=== PATIENT | female | born 1940 | race Caucasian/White ===

== ENCOUNTER → 2017-05-22 | Outpatient (CLI) | payer MEDICARE, BC ==
[2016-08-06 11:00] VITALS: BP 130/55
[~2017-05-22] MED LIST: ALPR0.5T6 PO; AMLO10TA4 PO; ASPI-482 PO; CELE200C PO; CINN500C2 PO; CRESTOR40 MG PO; EZET10TA18 PO; FEXO60TA25 PO; FLUT9.9S NS; GABA-586 PO; GINK60CA3 PO; GLIM1TAB2 PO; HYDR25TA9 PO; IPRA4AER IH; IRON18TA PO; ISOS60TA2 PO; LEVO100T5 PO; LISI-334 PO; METO100T11 PO; MULT-245 PO; NITR0.4T SL; OMEG300C PO; PANT40TA5 PO; PIOG30TA41 PO; PROAIR HFA8.5 GM INH; SERT100T8 PO; TRAZ50TA15 PO
--- NOTE | 2017-05-22 11:11 | CARD ---
APPROVED REPORT EXAM: Two-dimensional and M-mode echocardiogram with Doppler and color Doppler. Other Information Quality : Fair INDICATION Pulmonary Hypertention 2D DIMENSIONS RVDd3.4 (2.9-3.5cm)Left Atrium(2D)4.2 (1.6-4.0cm) IVSd1.1 (0.7-1.1cm)Aortic Root(2D)2.2 (2.0-3.7cm) LVDd4.4 (3.9-5.9cm)LVOT Diameter1.9 (1.8-2.4cm) PWd1.2 (0.7-1.1cm)LVDs2.7 (2.5-4.0cm) FS (%) 30.0 %SV58.9 ml LVEF(%)60.0 (>50%) Aortic Valve AoV Peak Maxwell.219.2cm/sAoV VTI48.1cm AO Peak GR.19.2mmHgLVOT Peak Maxwell.124.5cm/s AO Mean GR.12mmHgAVA (VMAX)1.58cm2 Mitral Valve MV E Lbrryrno01.1cm/sMV DECEL [id number] MV A Opuqucix327.4cm/sE/A Ratio0.7 Tricuspid Valve TR P. Pzajikpl447bt/sRAP [id number] TR Peak Gr.84stIvNMKI74qxDr Pulmonary Vein S1 Rqjgnqwl77.9cm/sD2 Bmvjkmxu64.6cm/s PVa [id number] LEFT VENTRICLE The left ventricle is normal size. There is mild concentric left ventricular hypertrophy. The left ve ntricular systolic function is normal and the ejection fraction is within normal range. The Ejection Fraction is 60-65%. There is normal LV segmental wall motion. Transmitral Doppler flow pattern is Gra de I-abnormal relaxation pattern. RIGHT VENTRICLE The right ventricle is normal size. The right ventricular systolic function is normal. There is a pac emaker lead in the right ventricle. ATRIA The left atrium is mildly dilated. The right atrium is mildly dilated. A pacemaker is seen in the rig ht atrium consistent with history. The interatrial septum is intact with no evidence for an atrial se ptal defect or patent foramen ovale as noted on 2-D or Doppler imaging. AORTIC VALVE The aortic valve is calcified but opens well. Doppler and Color Flow revealed no significant aortic r egurgitation. There is no significant aortic valvular stenosis. MITRAL VALVE The mitral valve is calcified but opens well. There is no evidence of mitral valve prolapse. There is no mitral valve stenosis. Doppler and Color-flow revealed trace to mild mitral regurgitation. TRICUSPID VALVE The tricuspid valve is normal in structure and function. Doppler and Color Flow revealed physiologica l tricuspid regurgitation. There is mild pulmonary hypertension. The PA pressure was estimated at 36 mmHg. There is no tricuspid valve stenosis. PULMONIC VALVE Doppler and Color Flow revealed trace pulmonic valvular regurgitation. There is no pulmonic valvular stenosis. GREAT VESSELS The aortic root is normal in size. The ascending aorta is normal in size. The IVC is normal in size a nd collapses >50% with inspiration. PERICARDIAL EFFUSION There is no evidence of significant pericardial effusion. Critical Notification Critical Value: No <Conclusion> The left ventricular systolic function is normal and the ejection fraction is within normal range. Th e Ejection Fraction is 60-65%. There is normal LV segmental wall motion. There is a pacemaker lead in the right ventricle.
== END | disposition home or self-care (01) ==
LOC: ECHO 09:47
PROVIDERS: ATTEND Internal Medicine Cardiovascular Disease
DX: I27.0 Primary pulmonary hypertension (principal); Z95.0 Presence of cardiac pacemaker
CPT/HCPCS: 93306

== ENCOUNTER 2017-07-13 06:28 | Outpatient (CLI) | payer MEDICARE, BC ==
[2017-07-13] VITALS (9 sets, daily range): BP systolic 149–197; BP diastolic 56–86
[~2017-07-13] VITALS: Ht 154.9 cm; Wt 107.0 kg
[~2017-07-13 06:28] MED LIST changes: +METO-247 PO; -METO100T11 PO
[2017-07-13 07:07] LABS: CALCIUM 9.3 mg/dL (8.5-10.1); CREATININE 1.3 mg/dL (0.6-1.0); GFR 39.9; POTASSIUM 3.5 mmol/L (3.5-5.1)
[2017-07-13 07:13] LABS: INR 1.1 (0.8-1.1); PROTHROMBIN TIME PATIENT 13.2 SEC (11.7-14.0)
[2017-07-13] MEDS ORDERED: LIDOCAINE 2% 20 ML VIAL. ONE (07:13)
[2017-07-13] MEDS ORDERED: HEPARIN for ARTERIAL LINE 1,500 ML ONE (07:13)
[2017-07-13 07:18] LABS: HEMATOCRIT 37.3 % (36.0-47.0); HEMOGLOBIN 12.2 g/dL (12.0-15.5); RED BLOOD COUNT 4.14 x10^6/uL (3.50-5.40); RED CELL DISTRIBUTION WIDTH 13.9 % (11.5-14.5)
[2017-07-13] MEDS ORDERED: GLIM2TAB2 PO (07:32)
[2017-07-13] MEDS ORDERED: LEVO112T4 PO (07:32)
[2017-07-13] MEDS ORDERED: MELO7.5T29 PO (07:32)
[2017-07-13] MEDS ORDERED: VERA240C2 PO (07:32)
[2017-07-13] MEDS ORDERED: LORA10TA3 PO (07:32)
[2017-07-13] MEDS ORDERED: CRESTOR20 MG PO (07:32)
[2017-07-13] MEDS ORDERED: IODIXANOL 320 MG/ML 100 ML VIAL. ONE (07:35)
[2017-07-13] MEDS ORDERED: diphenhydrAMINE 50 MG/ML VIAL ONE (07:51)
[2017-07-13] MEDS ORDERED: methylPREDNISolone SOD SUCC PF 125 MG/2 ML VIAL. ONE (07:51)
[2017-07-13] MEDS ORDERED: FAMOTIDINE 20 MG/2 ML VIAL ONE (07:51)
[2017-07-13] MEDS ORDERED: diphenhydrAMINE 50 MG/ML VIAL IVP ONE (08:00)
[2017-07-13] MEDS ORDERED: FAMOTIDINE 20 MG/2 ML VIAL IVP ONE (08:00)
[2017-07-13] MEDS ORDERED: methylPREDNISolone SOD SUCC PF 125 MG/2 ML VIAL. IV ONE (08:00)
[2017-07-13] MEDS ORDERED: MIDAZOLAM HCL/PF 2 MG/2 ML VIAL. ONE (09:00)
[2017-07-13] MEDS ORDERED: fentaNYL PF VIAL 100 MCG/2 ML VIAL ONE ×2 (09:01→09:41)
--- NOTE | 2017-07-13 09:08 | PDOC ---
MODERATE SEDATION ASSESSMENT RISKS/ALTERNATIVES Risks/Alternatives Risks and alternatives of this type of sedation and procedure discussed with: RISK/ALTERNATIVES: Patient H & P ON CHART H & P H & P on chart and reviewed for co-morbid conditions and appropriate labs. H&P ON CHART: Yes STATUS PREG STATUS ASSESSED: N/A MEDS/ALLERGIES REVIEWED Meds/Allergies Reviewed Medications and Allergies including time and route of recently administered narcotics and sedatives. MEDS/ALLERGIES REVIEWED: Yes ASA RATING ASA RATING: III AIRWAY ASSESSMENT Airway Assessment Airway patency, oral function limitations, presence of caps, crowns, dentures, partials, and ability to extend neck assessed. AIRWAY ASSESSMENT: Yes MALLAMPATI SCORE MALLAMPATI SCORE: II PRE-SEDATION ASSESSMENT PRE-SEDATION ASSESSMENT: Yes CATHLEEN ZENDEJAS MD Jul 13, 2017 09:08
[2017-07-13] MEDS ORDERED: hydrALAZINE 20 MG/ML VIAL. ONE (09:11)
[2017-07-13] MEDS ORDERED: CONTRAST GIVEN MC PRN (09:15)
[2017-07-13] MEDS ORDERED: MIDAZOLAM HCL/PF 2 MG/2 ML VIAL. IV ONE (09:15)
[2017-07-13] MEDS ORDERED: fentaNYL PF VIAL 100 MCG/2 ML VIAL IV ONE (09:15)
[2017-07-13] MEDS ORDERED: LIDOCAINE 2% 20 ML VIAL. IJ ONE (09:15)
[2017-07-13] MEDS ORDERED: IODIXANOL 320 MG/ML 100 ML VIAL. IART ONE (09:15)
[2017-07-13] MEDS ORDERED: hydrALAZINE 20 MG/ML VIAL. IVP ONE (09:30)
--- NOTE | 2017-07-13 13:43 | CARD ---
APPROVED REPORT Procedure(s) performed: Right Heart Cath, Coronaries, LV Moderate Sedation: 51 Minutes HISTORY The patient is a 76 year-old female with a history of : previous CHF, coronary artery disease, hypert ension, dyslipidemia. INDICATION The indication(s) include : dyspnea. PROCEDURE NARRATIVE The patient was brought electively to the cardiac catheterization lab. A timeout was performed confi rming the patient's name, date of , procedure, and site of procedure. All necessary personnel w ere wearing the appropriate protective equipment and radiation monitor devices. After explaining the risks and benefits of the procedure and alternatives, informed consent was obtained. (See nursing no nasreen for medications administered). The right groin was sterilely prepped and draped in the usual fas hion. The right groin was infiltrated with 20 mL of 2% lidocaine for subcutaneous anesthesia. A 5 F sheath was inserted into the right femoral artery without difficulty via the modified seldinger techn ique with an 18G needle and a J-tipped guidewire. Next, an 6Fr sheath was inserted in the right commo n femoral vein in similar fashion without difficulty. A PA catheter was then advanced through the right heart chambers, pressures and saturations were obta ined. Subsequently, right and left coronary angiography was performed using standard JR4 and JL4 diag nostic catheters. Left ventricular end diastolic pressure was obtained with a pigtail catheter and p ullback was performed after left ventriculography. HEMODYNAMICS: LVEDP 21 mm Hg AO: 156/82 *No gradient on LV to aortic pullback. PCWP: 20 mm Hg PA: 54/26/38 RV: 57/10/16 RA: 11 mm Hg Artur: 4.5 L/min PA saturation: 73% FA saturation: 95% LEFT VENTRICULOGRAM: Deferred due to renal insufficiency. CORONARY ANGIOGRAPHY: LM is a moderate to large caliber vessel with normal angiographic appearance. LAD is a moderate caliber vessel with patent mid stents. D1 is a small caliber vessel with an ostial 70% stenosis. There is an epicardial collateral to the di stal segment of this vessel. LCx is a small to moderate caliber non-dominant vessel with mild luminal irregularities. RCA is a large caliber dominant vessel with patent proximal and mid stents and mild luminal irregular ities. RPDA and RPL are small to moderate caliber vessels with normal angiographic appearance. Conclusion 1. No significant coronary artery disease, patent LAD and RCA stents. 2. No significant pulmonary HTN. 3. No clear cardiac source of exertional dyspnea noted. Recommendations Aggressive Medical Therapy
== END 2017-07-13 14:00 | disposition home or self-care (01) ==
LOC: CCL 06:28
PROVIDERS: ATTEND Internal Medicine Cardiovascular Disease
DX: I25.10 Atherosclerotic heart disease of native coronary artery without angina pectoris (principal); I11.0 Hypertensive heart disease with heart failure; I50.9 Heart failure, unspecified; E78.00 Pure hypercholesterolemia, unspecified; J44.9 Chronic obstructive pulmonary disease, unspecified; E66.9 Obesity, unspecified; Z68.41 Body mass index [BMI] 40.0-44.9, adult; K21.9 Gastro-esophageal reflux disease without esophagitis; E03.9 Hypothyroidism, unspecified; F32.9 Major depressive disorder, single episode, unspecified; M19.91 Primary osteoarthritis, unspecified site; Z90.710 Acquired absence of both cervix and uterus; Z90.49 Acquired absence of other specified parts of digestive tract; Z98.41 Cataract extraction status, right eye; Z98.42 Cataract extraction status, left eye; Z88.8 Allergy status to other drugs, medicaments and biological substances; Z88.6 Allergy status to analgesic agent; Z88.1 Allergy status to other antibiotic agents; Z91.041 Radiographic dye allergy status
CPT/HCPCS: 36415; 80048; 85027; 85610; 93453; 99152; 99153; C1769; C1773; C1892; J0360; J1200; J1644; J2250; J2930; J3010; S0028; J2001

== ENCOUNTER 2017-09-02 20:56 | Emergency (ER) | payer MEDICARE, BC ==
[~2017-09-02] VITALS: Ht 157.5 cm; Wt 101.6 kg
[~2017-09-02 20:56] MED LIST changes: +CRESTOR20 MG PO; +GLIM2TAB2 PO; +LEVO112T4 PO; +LORA10TA3 PO; +MELO7.5T29 PO; +VERA240C2 PO
[2017-09-02 20:58] VITALS: BP 177/76
[2017-09-02] MEDS ORDERED: ONDANSETRON ODT 4 MG TAB.RAPDIS. PO ONE (21:30)
[2017-09-02] MEDS ORDERED: fentaNYL PF VIAL 100 MCG/2 ML VIAL IM ONE (21:30)
--- NOTE | 2017-09-02 22:01 | PHYS DOC ---
Past Medical History Past Medical History: Anemia, CAD, COPD, Depression, Diabetes-Type II, High Cholesterol, Hypertension, Hypothyroid, Renal Disease Past Surgical History: Angioplasty, Appendectomy, Cholecystectomy, Hysterectomy , Pacemaker, Tonsillectomy Additional Past Surgical Histo: 6 cardiac stents, Alcohol Use: None Drug Use: None Adult General Chief Complaint Chief Complaint: HIP PAIN [facility] HPI Patient is a 76 year old female with history of chronic back pain who presents with persistent right lower paralumbar paravertebral back pain radiating to right leg for the past several days. Patient states she fell 4 days prior to arrival has had increased pain. Patient has been able to her in the process of moving is been lifting boxes, bending and twisting repeatedly which is more than her normal activity. Has had increased pain but did not receive medical evaluation until today. Patient was Rx'd Hydrocodone and is awaiting arrangements for outpatient imaging studies. Patient states she took hydrocodone 3 hours prior to ED arrival with limited improvement. Denies motor weakness or loss of sensation. No bladder incontinence. No other acute symptoms or complaints. Review of Systems Review of Systems ROS as per HPI. All other ROS are negative.] All other systems were reviewed and found to be within normal limits, except as documented in this note. Current Medications Current Medications Current Medications Medications (Trade) Dose Ordered Sig/Eloisa Start Time Stop Time Status Last Admin Dose Admin Fentanyl Citrate (Fentanyl 2ml Vial) 150 mcg 1X ONCE 09/02/17 21:30 09/02/17 21:31 DC 09/02/17 21:25 150 MCG Ketorolac Tromethamine (Toradol Im) 60 mg 1X ONCE 09/03/17 00:30 09/03/17 00:31 DC 09/03/17 00:23 60 MG Ondansetron HCl (Zofran Odt) 4 mg 1X ONCE 09/02/17 21:30 09/02/17 21:31 DC 09/02/17 21:24 4 MG Allergies Allergies Allergies Coded Allergies Type Severity Reaction Last Updated Verified Iodinated Contrast- Oral and IV Dye Allergy Intermediate 08/04/16 Yes Tetracyclines Allergy Intermediate 08/04/16 Yes morphine Allergy Intermediate 08/04/16 Yes nitrofurantoin Allergy Intermediate 08/04/16 Yes Physical Exam Physical Exam Constitutional: Well developed, well nourished, discomfort secondary to pain.[] HENT: Normocephalic, atraumatic, bilateral external ears normal, oropharynx moist, no oral exudates, nose normal. [] Eyes: PERRLA, EOMI, conjunctiva normal. [] Neck: Normal range of motion. [] Cardiovascular:Heart rate regular rhythm, no murmur [] Lungs & Thorax: Bilateral breath sounds clear to auscultation [] Abdomen: Bowel sounds normal, soft, no tenderness. [] Skin: Warm, dry, no erythema, no rash. [] Back: Diffuse low back pain, no midline bony tenderness, swelling or step off appreciated. [] Extremities: R hip, no deformity swelling, hip rotation, swelling or shortening of the extremity.. [] Neurologic: Alert and oriented X 3, R lower extremity , normal motor function, normal sensory function, no focal deficits noted. [] Psychologic: Affect, anxious. [] Current Patient Data Vital Signs Vital Signs Date Time Temp Pulse Resp B/P (MAP) Pulse Ox O2 Delivery O2 Flow Rate FiO2 09/02/17 22:15 Room Air 09/02/17 20:58 98.3 70 20 177/76 (109) 98 98.3 EKG EKG [] Radiology/Procedures Radiology/Procedures [X-ray right hip/lumbar series: No obvious displaced fracture. CT lumbar spine/pelvis: No acute findings per radiology report] Course & Med Decision Making Course & Med Decision Making Pertinent Labs and Imaging studies reviewed. (See chart for details) [No for occult neurologic deficits. Pain addressed. Showing stenosis likely contributing to pain. PCP follow up. ] Dragon Disclaimer Dragon Disclaimer This electronic medical record was generated, in whole or in part, using a voice recognition dictation system. Departure Departure Impression: Primary Impression: Back pain Additional Impression: Lumbar radicular pain Disposition: HOME, SELF-CARE Condition: Referrals: NAIF GONZALES MD (PCP) Problem Qualifiers ANUPAMA COLE DO Sep 02, 2017 22:01
--- NOTE | 2017-09-02 22:29 | RAD ---
CT lumbar spine without contrast History: Back pain Axial helical images of the lumbar spine were obtained without contrast. Axial, coronal and sagittal reconstruction was performed. Findings: There is grade 1 anterolisthesis of L4 on L5 and L5 on S1. There is no loss of vertebral body stature. Evaluation of the central canal is limited without contrast. Diffuse circumferential disc bulge and hypertrophy of the facets and ligamentum flavum results in owqdsxcp-jb-[id number] central stenosis at L4-5 with crowding of the lateral recesses lateral recesses bilaterally right worse than left. There is moderate narrowing of the neuroforamen bilaterally at L4-5 and L5-S1 with loss of fat around the exiting nerve roots bilaterally at L4-L5. There is a 2.4 cm intermediate density lesion arising from the mid right kidney posterior laterally. Impression: 1. Marked degenerative changes of the lumbar spine with significant central and neuroforaminal stenosis at L4-L5. 2. There appears to be compression of the intraforaminal course of the exiting nerve roots bilaterally at this level however, there is also likely compression of the L5 nerve roots before the end of the neuroforamen. 3. Indeterminate lesion in the right kidney. Recommend follow-up ultrasound of the kidneys as an outpatient. PQRS Compliance Statement: One or more of the following individualized dose reduction techniques were utilized for this examination: 1. Automated exposure control 2. Adjustment of the mA and/or kV according to patient size 3. Use of iterative reconstruction technique Electronically signed by: Jean Valera III, MD (09/02/2017 10:26 PM) [facility]
--- NOTE | 2017-09-02 22:44 | RAD ---
CT of pelvis without contrast: HISTORY: Right hip pain Axial helical images of the pelvis were obtained without contrast. The uterus is not well seen and could be small or surgically absent. The ovaries are not well seen and are likely small. There is no lymphadenopathy or free fluid. The bladder appears normal. There is no pericolonic inflammation. The visualized osseous structures appear intact. Impression: No acute findings. PQRS Compliance Statement: One or more of the following individualized dose reduction techniques were utilized for this examination: 1. Automated exposure control 2. Adjustment of the mA and/or kV according to patient size 3. Use of iterative reconstruction technique Electronically signed by: Jean Valera III, MD (09/02/2017 10:41 PM) [facility]
[2017-09-03] MEDS ORDERED: KETOROLAC 60 MG/2 ML INJ. IM ONE (00:30)
--- NOTE | 2017-09-03 07:54 | RAD ---
Pelvis with right hip, 3 views, 09/02/2017: History: Trauma, injury No fracture or dislocation is identified. The hip joint spaces are well preserved with only mild marginal spurring. There are degenerative changes at the symphysis pubis and in the lower lumbar spine. Surgical clips are present the right groin. Aortoiliac calcific plaquing is noted. IMPRESSION: No acute bony abnormality is detected.
--- NOTE | 2017-09-03 07:57 | RAD ---
Lumbar spine, 3 views, 09/02/2017: History: Back pain, injury There is moderate disc space narrowing and marginal spurring at L5-S1. The other intervertebral disc spaces are well-maintained. There are scattered mild marginal spurs. There are moderate degenerative changes involving the facet joints in the lower lumbar spine. There is a minimal anterolisthesis at L5-S1. No acute fracture is identified. Aortic calcific plaquing is present. IMPRESSION: 1. Moderate degenerative change in the lower lumbar spine. 2. No acute bony abnormality is detected.
== END 2017-09-03 00:26 | disposition home or self-care (01) ==
LOC: ER 20:56
DX: M54.16 Radiculopathy, lumbar region (principal); I25.10 Atherosclerotic heart disease of native coronary artery without angina pectoris; J44.9 Chronic obstructive pulmonary disease, unspecified; F32.9 Major depressive disorder, single episode, unspecified; I12.9 Hypertensive chronic kidney disease with stage 1 through stage 4 chronic kidney disease, or unspecified chronic kidney disease; E11.22 Type 2 diabetes mellitus with diabetic chronic kidney disease; N18.9 Chronic kidney disease, unspecified; E78.00 Pure hypercholesterolemia, unspecified; E03.9 Hypothyroidism, unspecified; G89.29 Other chronic pain; Z95.5 Presence of coronary angioplasty implant and graft; Z95.0 Presence of cardiac pacemaker; Z90.49 Acquired absence of other specified parts of digestive tract; Z90.710 Acquired absence of both cervix and uterus; Z91.041 Radiographic dye allergy status; Z88.1 Allergy status to other antibiotic agents; Z88.5 Allergy status to narcotic agent; Z88.8 Allergy status to other drugs, medicaments and biological substances
CPT/HCPCS: 72100; 72131; 72192; 73502; 96372; 99284; J1885; J3010; Q0162

== ENCOUNTER 2017-09-07 19:09 | Emergency (ER) | payer MEDICARE, BC ==
[~2017-09-07] VITALS: Ht 157.5 cm; Wt 99.8 kg
[2017-09-07 19:50] VITALS: BP 186/87
[2017-09-07] MEDS ORDERED: fentaNYL PF VIAL 100 MCG/2 ML VIAL IM ONE (20:30)
[2017-09-07] MEDS ORDERED: diazePAM 5 MG TABLET PO ONE (20:30)
[2017-09-07] MEDS ORDERED: KETOROLAC 60 MG/2 ML INJ. IM ONE (20:30)
--- NOTE | 2017-09-07 20:32 | PHYS DOC ---
Past Medical History Past Medical History: Anemia, CAD, COPD, Depression, Diabetes-Type II, High Cholesterol, Hypertension, Hypothyroid, Renal Disease Past Surgical History: Angioplasty, Appendectomy, Cholecystectomy, Hysterectomy , Pacemaker, Tonsillectomy Additional Past Surgical Histo: 6 cardiac stents, Alcohol Use: None Drug Use: None Adult General Chief Complaint Chief Complaint: HIP PAIN [facility] HPI Patient is a 76 year old female with history of COPD, diabetes type 2, hypertension, anemia, who presents today complaining of moderate right low back pain radiating into the right lower extremity that began on after she fell. Patient was seen in the ED on September 02, 2017, she had lumbar spine CTs which were negative for any acute findings and right hip x-rays which were negative for any acute findings. She states she was sent home with hydrocodone and Flexeril. Patient states her pain is still ongoing. Patient denies any injury. Denies any loss of bowel bladder function. Denies any numbness or tingling to bilateral lower extremities. She states she has an appointment with her PCP tomorrow morning. Review of Systems Review of Systems Constitutional: Denies fever or chills [] Eyes: Denies change in visual acuity, redness, or eye pain [] HENT: Denies nasal congestion or sore throat [] Respiratory: Denies cough or shortness of breath [] Cardiovascular: No additional information not addressed in HPI [] GI: Denies abdominal pain, nausea, vomiting, bloody stools or diarrhea [] : Denies dysuria or hematuria [] Musculoskeletal: Right low back pain radiating into the right lower extremity Integument: Denies rash or skin lesions [] Neurologic: Denies headache, focal weakness or sensory changes [] All other systems were reviewed and found to be within normal limits, except as documented in this note. Current Medications Current Medications Current Medications Medications (Trade) Dose Ordered Sig/Eloisa Start Time Stop Time Status Last Admin Dose Admin Diazepam (Valium) 5 mg 1X ONCE 09/07/17 20:30 09/07/17 20:31 DC Fentanyl Citrate (Fentanyl 2ml Vial) 50 mcg 1X ONCE 09/07/17 20:30 09/07/17 20:31 DC Ketorolac Tromethamine (Toradol Im) 60 mg 1X ONCE 09/07/17 20:30 09/07/17 20:31 DC Allergies Allergies Allergies Coded Allergies Type Severity Reaction Last Updated Verified Iodinated Contrast- Oral and IV Dye Allergy Intermediate 08/04/16 Yes Tetracyclines Allergy Intermediate 08/04/16 Yes morphine Allergy Intermediate 08/04/16 Yes nitrofurantoin Allergy Intermediate 08/04/16 Yes Physical Exam Physical Exam Constitutional: Well developed, well nourished, no acute distress, non-toxic appearance. [] HENT: Normocephalic, atraumatic, bilateral external ears normal, oropharynx moist, no oral exudates, nose normal. [] Eyes: PERRLA, EOMI, conjunctiva normal, no discharge. [] Neck: Normal range of motion, no tenderness, supple, no stridor. [] Cardiovascular:Heart rate regular rhythm, no murmur [] Lungs & Thorax: Bilateral breath sounds clear to auscultation [] Abdomen: Bowel sounds normal, soft, no tenderness, no masses, no pulsatile masses. [] Skin: Warm, dry, no erythema, no rash. [] Back: Diffuse tenderness to the right lumbar spine worse on the right SI joint, no midline lumbar spine tenderness, no CVA tenderness. [] Extremities: No tenderness, no cyanosis, no clubbing, ROM intact, no edema. [] Neurologic: Alert and oriented X 3, normal motor function, normal sensory function, no focal deficits noted. [] Psychologic: Affect normal, judgement normal, mood normal. [] Current Patient Data Vital Signs Vital Signs Date Time Temp Pulse Resp B/P (MAP) Pulse Ox O2 Delivery O2 Flow Rate FiO2 09/07/17 19:50 97.6 95 16 98 Room Air 97.6 EKG EKG [] Radiology/Procedures Radiology/Procedures [] Course & Med Decision Making Course & Med Decision Making Pertinent Labs and Imaging studies reviewed. (See chart for details) Patient is in the ED with complaints of right low-back pain radiating into the right lower extremity that began on after she fell. They did a CT of her lumbar spine as well as x-rays of the right hip which were negative for any acute findings. She is currently taking cyclobenzaprine and hydrocodone with no relief. I talked to patient about management of her pain considering she is 76 years old. Informed her she can be admitted for pain management. She states she has an appointment with her PCP tomorrow morning. She'll be given Toradol and Valium and fentanyl in the ED. She'll be discharged with Valium and to continue taking her fentanyl and follow-up with her own PCP tomorrow morning at 11 AM. Recommended pain clinic doctor follow up as well. Dragon Disclaimer Dragon Disclaimer This electronic medical record was generated, in whole or in part, using a voice recognition dictation system. Departure Departure Impression: Primary Impression: Back pain Additional Impression: Lumbar radicular pain Disposition: HOME, SELF-CARE Condition: STABLE Referrals: NAIF GONZALES MD (PCP) follow up tomorrow BERTA ZAMUDIO MD follow up in one week Patient Instructions: Back Pain, Adult, Sciatica, [id number] Additional Instructions: You were seen with pain radiating to the right lower extremity. You have an appointment with their doctor tomorrow. Ensure you follow-up. We also provided you a pain clinic doctor, contact the office tomorrow and set up a follow-up appointment. Return to the ED at any point symptoms worsen. Scripts Hydrocodone Bit/Acetaminophen (HYDROCODONE-APAP 7.5-325 ) 1 Each Tablet 1 TAB PO PRN Q6HRS Y for PAIN, #10 TAB 0 Refills Prov: CARLOS DURAND APRN 09/07/17 Diazepam (VALIUM) 5 Mg Tablet 5 MG PO TID, #15 TAB Prov: CARLOS DURAND APRN 09/07/17 Problem Qualifiers Primary Impression: Back pain Back pain location: low back pain Chronicity: acute Back pain laterality: right Sciatica presence: with sciatica Sciatica laterality: sciatica of right side Qualified Codes: M54.41 - Lumbago with sciatica, right side CARLOS DURAND APRN Sep 07, 2017 20:32
[2017-09-07] MEDS ORDERED: HYDR-2762 PO (20:36)
[2017-09-07] MEDS ORDERED: DIAZ5TAB PO (20:36)
== END 2017-09-07 20:49 | disposition home or self-care (01) ==
LOC: ER 19:09
DX: M54.41 Lumbago with sciatica, right side (principal); M54.16 Radiculopathy, lumbar region; I25.10 Atherosclerotic heart disease of native coronary artery without angina pectoris; J44.9 Chronic obstructive pulmonary disease, unspecified; I12.9 Hypertensive chronic kidney disease with stage 1 through stage 4 chronic kidney disease, or unspecified chronic kidney disease; E11.22 Type 2 diabetes mellitus with diabetic chronic kidney disease; N18.9 Chronic kidney disease, unspecified; F32.9 Major depressive disorder, single episode, unspecified; E78.00 Pure hypercholesterolemia, unspecified; E03.9 Hypothyroidism, unspecified; Z95.0 Presence of cardiac pacemaker; Z95.5 Presence of coronary angioplasty implant and graft; Z90.49 Acquired absence of other specified parts of digestive tract; Z90.710 Acquired absence of both cervix and uterus; Z91.041 Radiographic dye allergy status; Z88.1 Allergy status to other antibiotic agents; Z88.5 Allergy status to narcotic agent; Z88.8 Allergy status to other drugs, medicaments and biological substances
CPT/HCPCS: 96372; 99284; J1885; J3010

== ENCOUNTER → 2017-09-15 | Outpatient (CLI) | payer MEDICARE, BC ==
[2017-09-07 19:50] VITALS: BP 186/87
[~2017-09-15] MED LIST changes: +DIAZ5TAB PO; +HYDR-2762 PO
--- NOTE | 2017-09-15 12:59 | KCIC ---
RENAL ARTERY ARTERIAL DOPPLER ULTRASOUND Indication: Chronic kidney disease stage III. Kidney mass seen on CT lumbar spine. Comparison: CT lumbar spine without contrast, September 02, 2017. Technique: Multiple grayscale, color flow, and Doppler spectral waveform analysis images of the abdominal aorta and renal arteries were obtained. Findings: Left kidney technically difficult to visualize. Patient unable to lay flat or towards the right. Abdominal aorta peak systolic velocity: 94 cm/sec. Right main renal artery peak systolic velocity: 93 cm/sec. Right renal artery to aorta ratio: 1 Left main renal artery peak systolic velocity: 100 cm/sec. Left renal artery to aorta ratio: 1.1 The bilateral proximal renal arteries are unable to be visualized. Renal veins are patent. The right kidney measures 8.6 cm. The left kidney measures 10.2 cm. Kidneys are normal in echotexture. No hydronephrosis. There is a right upper pole round hypoechoic lesion measuring 2.4 x 2.1 x 2.5 cm. There may be increased through transmission. The margins are irregular. Do not see a color Doppler interrogation image of the lesion. Urinary bladder is not well seen, no obvious abnormality. IMPRESSION: 1. The lesion in the upper pole of the right kidney is indeterminate by ultrasound. There are internal echoes and irregular margins. A color Doppler image interrogating this lesion is not saved. Recommend further evaluation with multiphase CT abdomen with and without contrast. 2. No evidence of hemodynamically significant renal artery stenosis. Electronically signed by: Jean Marie Schwartz MD (09/15/2017 12:56 PM) [id number]
== END | disposition home or self-care (01) ==
LOC: KCIC US 07:47
PROVIDERS: ATTEND Family Medicine
DX: N18.3 Chronic kidney disease, stage 3 (moderate) (principal); N28.89 Other specified disorders of kidney and ureter
CPT/HCPCS: 76770

== ENCOUNTER → 2017-10-07 | Outpatient (CLI) | payer MEDICARE, BC ==
[2017-10-07] MEDS: IOHEXOL 300 MG/ML 100ML VIAL. IV (08:51)
[2017-10-07 08:52] LABS: ISTAT CREATININE 1.4 mg/dL (0.6-1.1)
== END | disposition home or self-care (01) ==
LOC: KCIC CT 08:12
DX: N28.1 Cyst of kidney, acquired (principal); N28.89 Other specified disorders of kidney and ureter; K44.9 Diaphragmatic hernia without obstruction or gangrene
CPT/HCPCS: 74170; 82565; Q9967

== ENCOUNTER 2018-02-27 19:40 | Emergency (ER) | payer MEDICARE, BC | END 2018-02-27 20:20 | disposition home or self-care (01) | LOC: ER 19:40 | DX: L03.116 Cellulitis of left lower limb (principal); E03.9 Hypothyroidism, unspecified; E78.00 Pure hypercholesterolemia, unspecified; I25.10 Atherosclerotic heart disease of native coronary artery without angina pectoris; J44.9 Chronic obstructive pulmonary disease, unspecified; Z95.0 Presence of cardiac pacemaker; Z95.5 Presence of coronary angioplasty implant and graft; I13.10 Hypertensive heart and chronic kidney disease without heart failure, with stage 1 through stage 4 chronic kidney disease, or unspecified chronic kidney disease; E11.22 Type 2 diabetes mellitus with diabetic chronic kidney disease; N18.9 Chronic kidney disease, unspecified; Z90.49 Acquired absence of other specified parts of digestive tract; Z90.710 Acquired absence of both cervix and uterus | CPT/HCPCS: 99283 ==

== ENCOUNTER → 2018-07-21 | Outpatient (CLI) | payer MEDICARE, BC ==
[2018-02-27 19:52] VITALS: BP 159/89
[~2018-07-21] MED LIST changes: +ACET500T68 PO; +CEPH-263 PO; +GABA600T2 PO; +PRED-220 PO; +TRAZ-85 PO; -TRAZ50TA15 PO
--- NOTE | 2018-07-21 09:49 | CARD ---
MR#: [id number] Date of Study: 07/21/2018 Ordering Physician: CATHLEEN JACK, Referring Physician: CATHLEEN JACK, Tech: Mallory Ortez APPROVED REPORT EXAM: Two-dimensional and M-mode echocardiogram with Doppler and color Doppler. Other Information Quality : FairHR: 60bpm INDICATION COPD Coronary Arteriosclerosis Surgery/Intervention Pacemaker: RISK FACTORS Hypertension Obesity Hyperlipidemia Diabetes 2D DIMENSIONS Left Atrium(2D)4.3 (1.6-4.0cm)IVSd1.0 (0.7-1.1cm) Aortic Root(2D)2.9 (2.0-3.7cm)LVDd5.5 (3.9-5.9cm) LVOT Diameter2.1 (1.8-2.4cm)PWd1.3 (0.7-1.1cm) LVDs3.0 (2.5-4.0cm)FS (%) 45.1 % SV112.9 mlLVEF(%)75.9 (>50%) Aortic Valve AoV Peak Maxwell.246.9cm/sAoV VTI61.3cm AO Peak GR.24.4mmHgLVOT Peak Maxwell.90.4cm/s LVOT VTI 19.09cmAO Mean GR.14mmHg IRISH (VMAX)0.20gy4FFI (VTI)1.09cm2 Mitral Valve MV E Kufexcwo306.5cm/sMV DECEL TODI481pq MV A Qcgyswjk728.4cm/sMV VHF84sb E/A Ratio1.1MVA (PHT)5.30cm2 TDI E/Lateral E'17.7E/Medial E'16.1 Pulmonary Valve PV Peak Dhwafjcx017.4cm/sPV Peak Grad.7mmHg Tricuspid Valve TR P. Cdkaytxv358oo/sRAP LGGBZNVJ3xwHu TR Peak Gr.23pyFzDUKI60zxMt Pulmonary Vein S1 Dzwfyvrc07.4cm/sD2 Nzxpodxf45.0cm/s LEFT VENTRICLE The Left Ventricle is mildly dilated. There is borderline concentric left ventricular hypertrophy. Th e left ventricular systolic function is normal and the ejection fraction is within normal range. The Ejection Fraction is 55-60%. Suboptimal images. Grossly normal wall motion. Transmitral Doppler flow pattern is Grade I-abnormal relaxation pattern. RIGHT VENTRICLE The right ventricle is normal size. There is normal right ventricular wall thickness. The right ventr icular systolic function is normal. ATRIA The left atrium size is normal. The right atrium size is normal. The interatrial septum is intact wit h no evidence for an atrial septal defect or patent foramen ovale as noted on 2-D or Doppler imaging. AORTIC VALVE The aortic valve is calcified and displays decreased opening. Doppler and Color Flow revealed trace a ortic regurgitation. Calculated aortic valve area is 1.3 cm2 with maximum pressure gradient of 25 mmH g and mean pressure gradient of 14 mmHg. MITRAL VALVE The mitral valve is normal in structure and function. There is no mitral valve stenosis. Doppler and Color-flow revealed trace mitral regurgitation. TRICUSPID VALVE The tricuspid valve is not well visualized. Doppler and Color Flow revealed trace tricuspid regurgita tion. RVSP of 26 mm Hg. There is no tricuspid valve stenosis. PULMONIC VALVE The pulmonic valve is not well visualized. Doppler and Color Flow revealed trace pulmonic valvular re gurgitation. There is no pulmonic valvular stenosis. GREAT VESSELS The aortic root is normal in size. The IVC was not visualized. PERICARDIAL EFFUSION There is no evidence of significant pericardial effusion. Critical Notification Critical Value: No <Conclusion> The left ventricular systolic function is normal and the ejection fraction is within normal range. Th e Ejection Fraction is 55-60%. Suboptimal images. Grossly normal wall motion. Probable mild aortic stenosis. Doppler and Color Flow revealed trace tricuspid regurgitation. RVSP of 26 mm Hg. Signed by : Cathleen Jack, Electronically Approved : 07/21/2018 09:48:28
== END | disposition home or self-care (01) ==
LOC: ECHO 07:53
PROVIDERS: ATTEND Internal Medicine Cardiovascular Disease
DX: I25.10 Atherosclerotic heart disease of native coronary artery without angina pectoris (principal); J44.9 Chronic obstructive pulmonary disease, unspecified; E11.22 Type 2 diabetes mellitus with diabetic chronic kidney disease; I12.9 Hypertensive chronic kidney disease with stage 1 through stage 4 chronic kidney disease, or unspecified chronic kidney disease; N18.3 Chronic kidney disease, stage 3 (moderate); E78.5 Hyperlipidemia, unspecified; E66.8 Other obesity; Z95.0 Presence of cardiac pacemaker; Z68.39 Body mass index [BMI] 39.0-39.9, adult
CPT/HCPCS: 93306

== ENCOUNTER 2018-11-30 18:08 | Inpatient (IN) | payer MEDICARE, BC ==
[~2018-11-30] VITALS: Ht 157.5 cm; Wt 113.4 kg
[~2018-11-30 18:08] MED LIST changes: +ALBU2.5V8 INH; -GABA-586 PO; +GABA300C18 PO; -GABA600T2 PO; +GABA600T7 PO; +HYDR-2145 PO; -HYDR-2762 PO; +HYDR-2765 PO; -HYDR25TA9 PO; -PROAIR HFA8.5 GM INH; +TRAZ-118 PO; -TRAZ-85 PO
[2018-11-30] MEDS ORDERED: IV NORMAL SALINE 1000ML BAG 1,000 ML IV SCH (18:26)
[2018-11-30] MEDS ORDERED: ASPIRIN CHEWABLE 81 MG TABLET. PO ONE (18:30)
[2018-11-30] MEDS ORDERED: NITROGLYCERIN SUBLINGUAL 0.4 MG BOTTLE OF 25. SL PRN ×2 (18:30→20:15)
--- NOTE | 2018-11-30 18:30 | PHYS DOC ---
Past Medical History Past Medical History: Anemia, Anxiety, CAD, COPD, Depression, Diabetes-Type II , High Cholesterol, Hypertension, Hypothyroid, Renal Disease Past Surgical History: Angioplasty, Appendectomy, Cholecystectomy, Hysterectomy , Pacemaker, Tonsillectomy Additional Past Surgical Histo: 6 cardiac stents, Alcohol Use: Sober Drug Use: None Adult General Chief Complaint Chief Complaint: CHEST PAIN HPI HPI Patient is a 78-year-old female who presents with complaint of chest discomfort that started earlier today at about 12:30 PM. Patient states that she thinks it may just be an anxiety attack. She rates pain at a 2 out of 10 and states that it feels like a tightness. She states that at times it goes all the way across her chest but currently is just in the center of her chest. She denies any nausea, vomiting or diaphoresis. She states that pain is worsened with exertion. Review of Systems Review of Systems Constitutional: Denies fever or chills [] Respiratory: Denies cough or shortness of breath [] Cardiovascular: No additional information not addressed in HPI [] GI: Denies abdominal pain, nausea, vomiting or diarrhea [] Neurologic: Denies headache, focal weakness or sensory changes [] All other systems were reviewed and found to be within normal limits, except as documented in this note. Current Medications Current Medications Current Medications Medications (Trade) Dose Ordered Sig/[facility] Start Time Stop Time Status Last Admin Dose Admin Aspirin (Children'S Aspirin) 324 mg 1X ONCE 11/30/18 18:30 11/30/18 18:31 DC 11/30/18 19:25 324 MG Lorazepam (Ativan) 1 mg 1X ONCE 11/30/18 18:30 11/30/18 18:31 DC 11/30/18 19:26 1 MG Nitroglycerin (Nitrostat) 0.4 mg PRN Q5MIN PRN 11/30/18 18:30 12/01/18 18:29 11/30/18 19:29 0.4 MG Sodium Chloride 1,000 ml @ 100 mls/hr Q10H 11/30/18 18:26 12/01/18 04:25 11/30/18 19:25 100 MLS/HR Allergies Allergies Allergies Coded Allergies Type Severity Reaction Last Updated Verified Iodinated Contrast- Oral and IV Dye Allergy Intermediate 08/04/16 Yes Tetracyclines Allergy Intermediate 08/04/16 Yes morphine Allergy Intermediate 08/04/16 Yes nitrofurantoin Allergy Intermediate 08/04/16 Yes Physical Exam Physical Exam Constitutional: Well developed, well nourished, no acute distress, non-toxic appearance. [] HENT: Normocephalic, atraumatic, bilateral external ears normal, oropharynx moist, no oral exudates, nose normal. [] Eyes: PERRLA, EOMI, conjunctiva normal, no discharge. [] Neck: Normal range of motion, no tenderness, supple, no stridor. [] Cardiovascular: Regular rate and rhythm[] Lungs & Thorax: Bilateral breath sounds clear to auscultation [] Abdomen: Bowel sounds normal, soft, no tenderness. [] Skin: Warm, dry, no erythema, no rash. [] Extremities: No tenderness, no cyanosis, no clubbing, ROM intact, with nonpitting edema. [] Neurologic: Alert and oriented X 3, no focal deficits noted. [] Psychologic: Anxious. [] Current Patient Data Vital Signs Vital Signs Date Time Temp Pulse Resp B/P (MAP) Pulse Ox O2 Delivery O2 Flow Rate FiO2 11/30/18 19:29 70 168/66 11/30/18 18:21 98.0 18 99 Room Air 98.0 Lab Values Laboratory Tests Test 11/30/18 18:33 White Blood Count 5.9 x10^3/uL (4.0-11.0) Red Blood Count 3.82 x10^6/uL (3.50-5.40) Hemoglobin 11.6 g/dL (12.0-15.5) L Hematocrit 35.7 % (36.0-47.0) L Mean Corpuscular Volume 94 fL (79-100) Mean Corpuscular Hemoglobin 30 pg (25-35) Mean Corpuscular Hemoglobin Concent 32 g/dL (31-37) Red Cell Distribution Width 13.4 % (11.5-14.5) Platelet Count 221 x10^3/uL (140-400) Neutrophils (%) (Auto) 57 % (31-73) Lymphocytes (%) (Auto) 30 % (24-48) Monocytes (%) (Auto) 7 % (0-9) Eosinophils (%) (Auto) 5 % (0-3) H Basophils (%) (Auto) 1 % (0-3) Neutrophils # (Auto) 3.4 x10^3uL (1.8-7.7) Lymphocytes # (Auto) 1.8 x10^3/uL (1.0-4.8) Monocytes # (Auto) 0.4 x10^3/uL (0.0-1.1) Eosinophils # (Auto) 0.3 x10^3/uL (0.0-0.7) Basophils # (Auto) 0.1 x10^3/uL (0.0-0.2) Sodium Level 143 mmol/L (136-145) Potassium Level 3.9 mmol/L (3.5-5.1) Chloride Level 104 mmol/L (98-107) Carbon Dioxide Level 27 mmol/L (21-32) Anion Gap 12 (6-14) Blood Urea Nitrogen 37 mg/dL (7-20) H Creatinine 1.5 mg/dL (0.6-1.0) H Estimated GFR (Cockcroft-Gault) 33.7 BUN/Creatinine Ratio 25 (6-20) H Glucose Level 94 mg/dL (70-99) Calcium Level 9.3 mg/dL (8.5-10.1) Magnesium Level 1.5 mg/dL (1.8-2.4) L Total Bilirubin 0.2 mg/dL (0.2-1.0) Aspartate Amino Transferase (AST) 15 U/L (15-37) Alanine Aminotransferase (ALT) 15 U/L (14-59) Alkaline Phosphatase 61 U/L (46-116) Troponin I Quantitative < 0.017 ng/mL (0.000-0.055) TQ-Oza-O-Type Natriuretic Peptide 249 pg/mL (0-449) Total Protein 7.6 g/dL (6.4-8.2) Albumin 3.2 g/dL (3.4-5.0) L Albumin/Globulin Ratio 0.7 (1.0-1.7) L Lipase 604 U/L (73-393) H Laboratory Tests 11/30/18 18:33 Laboratory Tests 11/30/18 18:33 EKG EKG [] Interpretation Time: EKG demonstrates a ventricular paced rhythm. Radiology/Procedures Radiology/Procedures [] Course & Med Decision Making Course & Med Decision Making Pertinent Labs and Imaging studies reviewed. (See chart for details) [] Dragon Disclaimer Dragon Disclaimer This electronic medical record was generated, in whole or in part, using a voice recognition dictation system. Departure Departure Impression: Primary Impression: Chest pain Disposition: ADMITTED INPATIENT Admitting Physician: Fortunato Alexander Condition: IMPROVED Referrals: NAIF GONZALES MD (PCP) Problem Qualifiers Primary Impression: Chest pain Chest pain type: unspecified Qualified Codes: R07.9 - Chest pain, unspecified DEEPTHI PETERSON Jr. DO Nov 30, 2018 18:30
[2018-11-30 18:58] LABS: BASO # 0.1 x10^3/uL (0.0-0.2); BASO % 1 % (0-3); EOS # 0.3 x10^3/uL (0.0-0.7); EOS % 5 % (0-3); HEMATOCRIT 35.7 % (36.0-47.0); HEMOGLOBIN 11.6 g/dL (12.0-15.5); LYMPH # 1.8 x10^3/uL (1.0-4.8); LYMPH % 30 % (24-48); MEAN CORPUSCULAR HEMOGLOBIN 30 pg (25-35); MEAN CORPUSCULAR HGB CONC 32 g/dL (31-37); MEAN CORPUSCULAR VOLUME 94 fL (79-100); MONO # 0.4 x10^3/uL (0.0-1.1); MONO % 7 % (0-9); NEUT # 3.4 x10^3uL (1.8-7.7); NEUT % 57 % (31-73); PLATELET COUNT 221 x10^3/uL (140-400); RED BLOOD COUNT 3.82 x10^6/uL (3.50-5.40); RED CELL DISTRIBUTION WIDTH 13.4 % (11.5-14.5); WHITE BLOOD COUNT 5.9 x10^3/uL (4.0-11.0)
[2018-11-30 19:12] LABS: CALCIUM 9.3 mg/dL (8.5-10.1); CREATININE 1.5 mg/dL (0.6-1.0); GFR 33.7; POTASSIUM 3.9 mmol/L (3.5-5.1)
[2018-11-30 19:21] LABS: ALBUMIN 3.2 g/dL (3.4-5.0); ALBUMIN/GLOBULIN RATIO 0.7 (1.0-1.7); MAGNESIUM 1.5 mg/dL (1.8-2.4); TOTAL BILIRUBIN 0.2 mg/dL (0.2-1.0); TOTAL PROTEIN 7.6 g/dL (6.4-8.2)
--- NOTE | 2018-11-30 19:35 | RAD ---
Indication:CHEST PAIN TECHNIQUE:Portable AP chest X-ray COMPARISON:None FINDINGS: Cardiac pacer is seen with its leads projecting over the heart. Heart is normal in size. Lungs are clear. No pneumothorax or pleural effusion. Visualized bony thorax is within normal limits. IMPRESSION: No acute pulmonary process. Electronically signed by: Sky Cordova DO (11/30/2018 7:32 PM) [facility]
[2018-11-30] MEDS ORDERED: ONDANSETRON PF 4 MG/2 ML VIAL. IV PRN (20:15)
[2018-11-30 21:15] VITALS: BP 160/66
--- NOTE | 2018-11-30 22:58 | NUR ---
Pt arrived to room 203 per cart accompanied by son's at 2109. Pt assisted to bed with assist. Pt denies pain at this time. Poc explained assesment completed vs obtained and stable. Call light in reach will resume care and continue to monitor pt.
[2018-11-30 23:00] VITALS: BP 150/65
[2018-12-01 03:00] VITALS: BP 136/63
[2018-12-01 07:20] VITALS: BP 166/71
[2018-12-01] MEDS ORDERED: PANTOPRAZOLE 40 MG TABLET.DR. PO ONE (10:30)
--- NOTE | 2018-12-01 10:32 | PDOC2 ---
CARDIAC CONSULT DATE OF CONSULT Date of Consult DATE: 12/01/18 TIME: 10:09 REASON FOR CONSULT Reason for Consult: Chest pain REFERRING PHYSICIAN Referring Physician: Alma Rosa SOURCE Source: Chart review, Patient HISTORY OF PRESENT ILLNESS HISTORY OF PRESENT ILLNESS This is a pleasant 78 yo female admitted for complains of chest pain. Reports that yesterday she felt like there was a band across her lower ribcage region and has been feeling anxious more anxious in the last few days. Reports no vomiting or nausea but slightly SOA. No changes to her activity tolerance and I ambulated her in the hallway without any difficulty. Reports that her anxiety is not controlled despite her med. Report no palpitations or dizziness. Denies any jaw or arm discomfort. No recent falls or injury. No use of NSAIDs, or any pepcid or prilosec. She does have some family dynamic issues going on. She currently lives with her son. PAST MEDICAL HISTORY Past Medical History Cardiovascular: CAD (with stenting ), HTN, [place], Hyperlipidemia, Other (SSS s/p pacemaker ([employer]), murmur ) Pulmonary: COPD CENTRAL NERVOUS SYSTEM: Periperal neuropathy GI: GERD Heme/Onc: No pertinent hx Hepatobiliary: No pertinent hx Psych: No pertinent hx Musculoskeletal: Osteoarthritis Infectious disease: No pertinent hx ENT: No pertinent hx Renal/: No pertinent hx Endocrine: Diabetes, Hypothyroidism Dermatology: No pertinent hx PAST SURGICAL HISTORY Past Surgical History Pacemaker, Appendectomy, Cholecystectomy, Tonsillectomy, Hysterectomy, PCI/stent FAMILY HISTORY Family History: Coronary Artery Disease SOCIAL HISTORY Smoke: No ALCOHOL: none Drugs: None Lives: with Family CURRENT MEDICATIONS CURRENT MEDICATIONS Current Medications Medications (Trade) Dose Ordered Sig/Eloisa Route PRN Reason Start Time Stop Time Status Last Admin Dose Admin Aspirin (Children'S Aspirin) 324 mg 1X ONCE PO 11/30/18 18:30 11/30/18 18:31 DC 11/30/18 19:25 Lorazepam (Ativan) 1 mg 1X ONCE IV 11/30/18 18:30 11/30/18 18:31 DC 11/30/18 19:26 Nitroglycerin (Nitrostat) 0.4 mg PRN Q5MIN PRN SL CP RATING > 1/10 11/30/18 18:30 12/01/18 18:29 11/30/18 19:29 Sodium Chloride 1,000 ml @ 100 mls/hr Q10H IV 11/30/18 18:26 12/01/18 04:25 DC 11/30/18 19:25 ALLERGIES ALLERGIES: Coded Allergies: Iodinated Contrast- Oral and IV Dye (Verified Allergy, Intermediate, 08/04) Tetracyclines (Verified Allergy, Intermediate, 08/04/16) morphine (Verified Allergy, Intermediate, 08/04/16) nitrofurantoin (Verified Allergy, Intermediate, 08/04/16) ROS Review of System 14 point ROS evaluated with pertinent positives noted per HPI PHYSICAL EXAM General: Alert, Oriented X3, Cooperative, No acute distress HEENT: Mucous membr. moist/pink Lungs: Normal air movement Heart: Regular rate (V paced), Normal S1, Normal S2, Other (2/6 [place] systolic murmur ) Abdomen: Soft, No tenderness Extremities: No cyanosis, No edema Skin: No breakdown, No significant lesion Neuro: Normal speech, Sensation intact Psych/Mental Status: Mental status NL, Mood NL MUSCULOSKELETAL: Osteoarthritic changes both hands VITALS VITALS Vital Signs Date Time Temp Pulse Resp B/P (MAP) Pulse Ox O2 Delivery O2 Flow Rate FiO2 12/01/18 07:20 97.3 59 16 166/71 (102) 93 Room Air 97.3 LABS Lab: Laboratory Tests Test 11/30/18 18:33 11/30/18 23:00 12/01/18 02:00 White Blood Count 5.9 x10^3/uL (4.0-11.0) Red Blood Count 3.82 x10^6/uL (3.50-5.40) Hemoglobin 11.6 g/dL (12.0-15.5) Hematocrit 35.7 % (36.0-47.0) Mean Corpuscular Volume 94 fL (79-100) Mean Corpuscular Hemoglobin 30 pg (25-35) Mean Corpuscular Hemoglobin Concent 32 g/dL (31-37) Red Cell Distribution Width 13.4 % (11.5-14.5) Platelet Count 221 x10^3/uL (140-400) Neutrophils (%) (Auto) 57 % (31-73) Lymphocytes (%) (Auto) 30 % (24-48) Monocytes (%) (Auto) 7 % (0-9) Eosinophils (%) (Auto) 5 % (0-3) Basophils (%) (Auto) 1 % (0-3) Neutrophils # (Auto) 3.4 x10^3uL (1.8-7.7) Lymphocytes # (Auto) 1.8 x10^3/uL (1.0-4.8) Monocytes # (Auto) 0.4 x10^3/uL (0.0-1.1) Eosinophils # (Auto) 0.3 x10^3/uL (0.0-0.7) Basophils # (Auto) 0.1 x10^3/uL (0.0-0.2) Sodium Level 143 mmol/L (136-145) Potassium Level 3.9 mmol/L (3.5-5.1) Chloride Level 104 mmol/L (98-107) Carbon Dioxide Level 27 mmol/L (21-32) Anion Gap 12 (6-14) Blood Urea Nitrogen 37 mg/dL (7-20) Creatinine 1.5 mg/dL (0.6-1.0) Estimated GFR (Cockcroft-Gault) 33.7 BUN/Creatinine Ratio 25 (6-20) Glucose Level 94 mg/dL (70-99) Calcium Level 9.3 mg/dL (8.5-10.1) Magnesium Level 1.5 mg/dL (1.8-2.4) Total Bilirubin 0.2 mg/dL (0.2-1.0) Aspartate Amino Transf (AST/SGOT) 15 U/L (15-37) Alanine Aminotransferase (ALT/SGPT) 15 U/L (14-59) Alkaline Phosphatase 61 U/L (46-116) Troponin I Quantitative < 0.017 ng/mL (0.000-0.055) < 0.017 ng/mL (0.000-0.055) < 0.017 ng/mL (0.000-0.055) BE-Pzs-L-Type Natriuretic Peptide 249 pg/mL (0-449) Total Protein 7.6 g/dL (6.4-8.2) Albumin 3.2 g/dL (3.4-5.0) Albumin/Globulin Ratio 0.7 (1.0-1.7) Lipase 604 U/L (73-393) ECHOCARDIOGRAM ECHOCARDIOGRAM <Conclusion> The left ventricular systolic function is normal and the ejection fraction is within normal range. The Ejection Fraction is 55-60%. Suboptimal images. Grossly normal wall motion. Probable mild aortic stenosis. Doppler and Color Flow revealed trace tricuspid regurgitation. RVSP of 26 mm Hg. There is a pacemaker lead in the RV/RA. DATE: 07/21/18 0948 HEART CATH HEART CATH CORONARY ANGIOGRAPHY: LM is a moderate to large caliber vessel with normal angiographic appearance. LAD is a moderate caliber vessel with patent mid stents. D1 is a small caliber vessel with an ostial 70% stenosis. There is an epicardial collateral to the distal segment of this vessel. LCx is a small to moderate caliber non-dominant vessel with mild luminal irregularities. RCA is a large caliber dominant vessel with patent proximal and mid stents and mild luminal irregularities. RPDA and RPL are small to moderate caliber vessels with normal angiographic appearance. Conclusion 1. No significant coronary artery disease, patent LAD and RCA stents. 2. No significant pulmonary HTN. 3. No clear cardiac source of exertional dyspnea noted. Recommendations Aggressive Medical Therapy DATE: 07/13/17 1343 ASSESSMENT/PLAN ASSESSMENT/PLAN 1. Atypical chest pain: due to GI and anxiety. trops nml. EKG paced rhythm no acute changes. Recent TTE and LHC as noted above. 2. Uncontrolled anxiety: Defer to PCP. on home SSRI 3. GERD 4. CAD: past stents 5. SSS/PPM in situ: [employer]. V paced 6. DM2/HLP 7. HTN: controlled Recommendations 1. Interrogate for any contributing arrhythmia 2. Continue with secondary prevention measures. Continue home BP meds 3. Follow up in office as scheduled. 4. Start on PPI MENDEZ YUN APRN Dec 01, 2018 10:32
--- NOTE | 2018-12-01 10:41 | EKG ---
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
--- NOTE | 2018-12-01 11:09 | NUR ---
SS following for discharge planning. Pt is from home and currently on room air. No discharge needs noted at this time. SS will continue to follow for pending discharge needs.
[2018-12-01 11:30] VITALS: BP 147/65
[2018-12-01 15:30] VITALS: BP 162/73
--- NOTE | 2018-12-01 16:34 | PDOC1 ---
History and Physical Date of Admission Date of Admission Identification/Chief Complaint Chief Complaint My chest hurts Source Source: Chart review, Patient History of Present Illness History of Present Illness Amy is a78 year old female with multiple comorbidities who was in her usual state of health until the day prior to her admission when she reported a discomfort over ther chest that she describes as a pressure "around her chest" Patient says the episodes are intermittent lasting probably less than 10 minutes , she deneis diaphoresis no sensation of impending doom, no nausea or respiratory distres reported no histoyr of recent cough sputum production fever or chills reported. SHe sii being admitted at the request of the ER for further evaluation anad treatment of her chest discomfort Of note is that the patient has some social issues at home that probably trigger her symtpoms that kaylyn ther to the hospital work up has been negative so far. Past Medical History Cardiovascular: CAD, HTN, CO, Hyperlipidemia, Other Pulmonary: COPD CENTRAL NERVOUS SYSTEM: Periperal neuropathy GI: GERD Heme/Onc: No pertinent hx Hepatobiliary: No pertinent hx Psych: No pertinent hx Rheumatologic: No pertinent hx Infectious disease: No pertinent hx Renal/: No pertinent hx Endocrine: Diabetes, Hypothyroidism Past Surgical History Past Surgical History: Pacemaker, Appendectomy, Cholecystectomy, Tonsillectomy , Hysterectomy, Other Family History Family History: Coronary Artery Disease Social History Smoke: No ALCOHOL: none Drugs: None Current Problem List Problem List Problems Medical Problems: (1) Chest pain Status: Acute Current Medications Current Medications Current Medications Medications (Trade) Dose Ordered Sig/Eloisa Start Time Stop Time Status Last Admin Dose Admin Aspirin (Children'S Aspirin) 324 mg 1X ONCE 11/30/18 18:30 11/30/18 18:31 DC 11/30/18 19:25 324 MG Lorazepam (Ativan) 1 mg 1X ONCE 11/30/18 18:30 11/30/18 18:31 DC 11/30/18 19:26 1 MG Nitroglycerin (Nitrostat) 0.4 mg PRN Q5MIN PRN 11/30/18 20:15 11/30/18 20:19 DC Ondansetron HCl (Zofran) 4 mg PRN Q8HRS PRN 11/30/18 20:15 12/01/18 20:14 Pantoprazole Sodium (Protonix) 40 mg 1X ONCE 12/01/18 10:30 2/27/19 10:31 DC 12/01/18 11:08 40 MG Sodium Chloride 1,000 ml @ 100 mls/hr Q10H 11/30/18 18:26 12/01/18 04:25 DC 11/30/18 19:25 100 MLS/HR Allergies Allergies Allergies Coded Allergies Type Severity Reaction Last Updated Verified Iodinated Contrast- Oral and IV Dye Allergy Intermediate 08/04/16 Yes Tetracyclines Allergy Intermediate 08/04/16 Yes morphine Allergy Intermediate 08/04/16 Yes nitrofurantoin Allergy Intermediate 08/04/16 Yes ROS Review of System CONSTITUTIONAL: No fever or chills EYES: No recent changes SKIN: No rash or itching CARDIOVASCULAR: + chest pain, no syncope, palpitations, or edema RESPIRATORY: No SOB or cough GASTROINTESTINAL: No nausea, vomiting or abdominal pain NEUROLOGICAL: No headaches or weakness ENDOCRINE: No cold or heat intolerance GENITOURINARY: No urgency or frequency of urination MUSCULOSKELETAL: No back pain or joint pain LYMPHATICS: No enlarged lymph nodes PSYCHIATRIC: No anxiety or depression Physical Exam Physical Exam Gen.: morbidly obese in no apparent distress Head: Normal shape atraumatic Eyes: Pupils equal reactive to light and accommodation, normal conjunctivae and lids Ears: Normal shape Nose: Normal shape no trauma Mouth: No exudates of the back of throat no thrush no lesions Neck: Supple no JVD no carotid bruit or lymphadenopathy no thyromegaly Chest: distnat breath sounds due to body habitus Lungs clear to auscultation with good inspiratory effort no crackles rales or rhonchi Cardiovascular: distant cardiac sounds due to body habitus.S1-S2 regular rhythm no murmurs gallops or rubs Abdomen: Bowel sounds present soft nontender no hepatosplenomegaly appreciated sign Extremities: No clubbing no cyanosis no edema peripheral pulses palpated bilaterally Neurological: Alert awake oriented in person time place and situation, cranial nerves II through XII intact, no motor or sensory deficits appreciated Psych: Appropriate mood, cooperative Vitals Vitals Vital Signs Date Time Temp Pulse Resp B/P (MAP) Pulse Ox O2 Delivery O2 Flow Rate FiO2 12/01/18 15:30 97.4 66 20 162/73 (102) 98 Room Air 97.4 Labs Labs Laboratory Tests Test 11/30/18 18:33 11/30/18 23:00 12/01/18 02:00 White Blood Count 5.9 x10^3/uL (4.0-11.0) Red Blood Count 3.82 x10^6/uL (3.50-5.40) Hemoglobin 11.6 g/dL (12.0-15.5) Hematocrit 35.7 % (36.0-47.0) Mean Corpuscular Volume 94 fL (79-100) Mean Corpuscular Hemoglobin 30 pg (25-35) Mean Corpuscular Hemoglobin Concent 32 g/dL (31-37) Red Cell Distribution Width 13.4 % (11.5-14.5) Platelet Count 221 x10^3/uL (140-400) Neutrophils (%) (Auto) 57 % (31-73) Lymphocytes (%) (Auto) 30 % (24-48) Monocytes (%) (Auto) 7 % (0-9) Eosinophils (%) (Auto) 5 % (0-3) Basophils (%) (Auto) 1 % (0-3) Neutrophils # (Auto) 3.4 x10^3uL (1.8-7.7) Lymphocytes # (Auto) 1.8 x10^3/uL (1.0-4.8) Monocytes # (Auto) 0.4 x10^3/uL (0.0-1.1) Eosinophils # (Auto) 0.3 x10^3/uL (0.0-0.7) Basophils # (Auto) 0.1 x10^3/uL (0.0-0.2) Sodium Level 143 mmol/L (136-145) Potassium Level 3.9 mmol/L (3.5-5.1) Chloride Level 104 mmol/L (98-107) Carbon Dioxide Level 27 mmol/L (21-32) Anion Gap 12 (6-14) Blood Urea Nitrogen 37 mg/dL (7-20) Creatinine 1.5 mg/dL (0.6-1.0) Estimated GFR (Cockcroft-Gault) 33.7 BUN/Creatinine Ratio 25 (6-20) Glucose Level 94 mg/dL (70-99) Calcium Level 9.3 mg/dL (8.5-10.1) Magnesium Level 1.5 mg/dL (1.8-2.4) Total Bilirubin 0.2 mg/dL (0.2-1.0) Aspartate Amino Transf (AST/SGOT) 15 U/L (15-37) Alanine Aminotransferase (ALT/SGPT) 15 U/L (14-59) Alkaline Phosphatase 61 U/L (46-116) Troponin I Quantitative < 0.017 ng/mL (0.000-0.055) < 0.017 ng/mL (0.000-0.055) < 0.017 ng/mL (0.000-0.055) WZ-Eea-K-Type Natriuretic Peptide 249 pg/mL (0-449) Total Protein 7.6 g/dL (6.4-8.2) Albumin 3.2 g/dL (3.4-5.0) Albumin/Globulin Ratio 0.7 (1.0-1.7) Lipase 604 U/L (73-393) Laboratory Tests Test 11/30/18 18:33 11/30/18 23:00 12/01/18 02:00 White Blood Count 5.9 x10^3/uL (4.0-11.0) Red Blood Count 3.82 x10^6/uL (3.50-5.40) Hemoglobin 11.6 g/dL (12.0-15.5) Hematocrit 35.7 % (36.0-47.0) Mean Corpuscular Volume 94 fL (79-100) Mean Corpuscular Hemoglobin 30 pg (25-35) Mean Corpuscular Hemoglobin Concent 32 g/dL (31-37) Red Cell Distribution Width 13.4 % (11.5-14.5) Platelet Count 221 x10^3/uL (140-400) Neutrophils (%) (Auto) 57 % (31-73) Lymphocytes (%) (Auto) 30 % (24-48) Monocytes (%) (Auto) 7 % (0-9) Eosinophils (%) (Auto) 5 % (0-3) Basophils (%) (Auto) 1 % (0-3) Neutrophils # (Auto) 3.4 x10^3uL (1.8-7.7) Lymphocytes # (Auto) 1.8 x10^3/uL (1.0-4.8) Monocytes # (Auto) 0.4 x10^3/uL (0.0-1.1) Eosinophils # (Auto) 0.3 x10^3/uL (0.0-0.7) Basophils # (Auto) 0.1 x10^3/uL (0.0-0.2) Sodium Level 143 mmol/L (136-145) Potassium Level 3.9 mmol/L (3.5-5.1) Chloride Level 104 mmol/L (98-107) Carbon Dioxide Level 27 mmol/L (21-32) Anion Gap 12 (6-14) Blood Urea Nitrogen 37 mg/dL (7-20) Creatinine 1.5 mg/dL (0.6-1.0) Estimated GFR (Cockcroft-Gault) 33.7 BUN/Creatinine Ratio 25 (6-20) Glucose Level 94 mg/dL (70-99) Calcium Level 9.3 mg/dL (8.5-10.1) Magnesium Level 1.5 mg/dL (1.8-2.4) Total Bilirubin 0.2 mg/dL (0.2-1.0) Aspartate Amino Transf (AST/SGOT) 15 U/L (15-37) Alanine Aminotransferase (ALT/SGPT) 15 U/L (14-59) Alkaline Phosphatase 61 U/L (46-116) Troponin I Quantitative < 0.017 ng/mL (0.000-0.055) < 0.017 ng/mL (0.000-0.055) < 0.017 ng/mL (0.000-0.055) CK-Nkc-M-Type Natriuretic Peptide 249 pg/mL (0-449) Total Protein 7.6 g/dL (6.4-8.2) Albumin 3.2 g/dL (3.4-5.0) Albumin/Globulin Ratio 0.7 (1.0-1.7) Lipase 604 U/L (73-393) VTE Prophylaxis Ordered VTE Prophylaxis Devices: Yes VTE Pharmacological Prophylaxi: Yes Assessment/Plan Assessment/Plan Atypical chest pain most likely related to anxiety and stressors at home and had a recent left heart catheterization less than 6 months ago with no significant coronary artery disease patent LAD and RCA stents and no significant pulmonary hypertension Anxiety disorder currently on SSRIs History of GERD History of coronary disease status post PCI and stenting as above Permanent pacemaker in place secondary to sick sinus syndrome Morbid obesity with a BMI of 45 Diabetes mellitus type 2 insulin requiring Essemtial hypertension Plan: will consult cardiology will resume home medications. further recommendations based on clinical course. DVt prophylaxis: RAJ Piña MD Dec 01, 2018 16:34
[2018-12-01] MEDS ORDERED: LISI-334 PO (17:17)
[2018-12-01] MEDS ORDERED: HYDR12.58 PO (17:17)
[2018-12-01] MEDS ORDERED: OMEG-165 PO (17:17)
[2018-12-01] MEDS ORDERED: PIOG15TA42 PO (17:17)
[2018-12-01] MEDS ORDERED: EZET10TA18 PO (17:17)
[2018-12-01] MEDS ORDERED: CRESTOR10 MG PO (17:17)
[2018-12-01] MEDS ORDERED: GABA300C18 PO (17:17)
[2018-12-01] MEDS ORDERED: GEMF600T PO (17:17)
[2018-12-01] MEDS ORDERED: MELO7.5T29 PO (17:17)
[2018-12-01 19:55] VITALS: BP 184/78
[2018-12-01] MEDS: IPRATRPIUM/ALBUTEROL 0.5/2.5MG 3 ML NEBU. NEB SCH (20:00)
[2018-12-01 20:31] LABS: BILIRUBIN,URINE NEGATIVE (NEG); CLARITY,URINE CLEAR; COLOR,URINE YELLOW; NITRITE,URINE NEGATIVE (NEG); PROTEIN,URINE NEGATIVE (NEG-TRACE); UROBILINOGEN,URINE 0.2 mg/dL (0.2 mg/dL)
[2018-12-01 20:40] LABS: BACTERIA,URINE MOD /HPF (0-FEW); RBC,URINE RARE /HPF (0-2); SQUAMOUS EPITHELIAL CELL,UR FEW /LPF; WBC,URINE 20-40 /HPF (0-4)
[2018-12-01] MEDS ORDERED: ACETAMINOPHEN 325 MG TABLET. PO SCH (21:00)
[2018-12-01] MEDS ORDERED: ATORVASTATIN CALCIUM 40 MG TABLET. PO SCH (21:00)
[2018-12-01] MEDS ORDERED: amLODIPine BESYLATE 10 MG TABLET PO SCH (21:00)
[2018-12-01] MEDS ORDERED: traZODone 50 MG TABLET. PO SCH (21:00)
[2018-12-01] MEDS: GABAPENTIN 300 MG CAPSULE. PO SCH (21:03)
[2018-12-01] MEDS: GEMFIBROZIL 600 MG TABLET. PO SCH (21:03)
[2018-12-01] MEDS: ASPIRIN ENTERIC COATED 81 MG TABLET.DR. PO SCH (21:03)
[2018-12-01] MEDS: ALPRAZolam 0.5 MG TABLET PO PRN (21:04)
[2018-12-01 23:17] VITALS: BP 143/63
[2018-12-02 02:32] VITALS: BP 151/64
[2018-12-02] MEDS: IPRATRPIUM/ALBUTEROL 0.5/2.5MG 3 ML NEBU. NEB SCH ×3 (06:52→16:00)
[2018-12-02 07:00] VITALS: BP 152/66
[2018-12-02] MEDS ORDERED: LEVOTHYROXINE 112 MCG TABLET PO SCH (07:30)
[2018-12-02] MEDS ORDERED: PANTOPRAZOLE 40 MG TABLET.DR. PO SCH (07:30)
[2018-12-02] MEDS: GEMFIBROZIL 600 MG TABLET. PO SCH (08:31)
[2018-12-02] MEDS: GABAPENTIN 300 MG CAPSULE. PO SCH ×2 (08:32→14:00)
[2018-12-02] MEDS: ASPIRIN ENTERIC COATED 81 MG TABLET.DR. PO SCH (08:32)
[2018-12-02] MEDS: GLIMEPIRIDE 2 MG TABLET. PO SCH ×2 (08:32→17:35)
[2018-12-02] MEDS: FERROUS SULFATE 325 MG TABLET. PO SCH ×2 (08:33→17:35)
[2018-12-02] MEDS: ALPRAZolam 0.5 MG TABLET PO PRN (08:34)
[2018-12-02] MEDS ORDERED: EZETIMIBE 10 MG TABLET. PO SCH (09:00)
[2018-12-02] MEDS ORDERED: hydroCHLOROthiazide 25 MG TABLET PO SCH (09:00)
[2018-12-02] MEDS ORDERED: MELOXICAM 7.5 MG TABLET PO SCH (09:00)
[2018-12-02] MEDS ORDERED: OMEGA-3 FATTY ACIDS/FISH OIL 1,000 MG CAPSULE. PO SCH (09:00)
[2018-12-02] MEDS ORDERED: VERAPAMIL SR 120 MG TABLET.ER. PO SCH (09:00)
[2018-12-02] MEDS ORDERED: METOPROLOL SUCC 24HR ER 100 MG TAB.ER.24H. PO SCH (09:00)
[2018-12-02] MEDS ORDERED: SERTRALINE 50 MG TABLET. PO SCH (09:00)
[2018-12-02] MEDS ORDERED: LISINOPRIL 20 MG TABLET PO SCH (09:00)
[2018-12-02] MEDS ORDERED: CETIRIZINE HCL 10 MG TABLET. PO SCH (09:00)
[2018-12-02] MEDS ORDERED: PIOGLITAZONE 15 MG TABLET. PO SCH (09:00)
[2018-12-02 11:09] VITALS: BP 142/64
[2018-12-02] MEDS ORDERED: Pantoprazole PO (11:29)
--- NOTE | 2018-12-02 13:39 | PDOC3 ---
Discharge Summary Visit Information Date of Admission: Dec 01, 2018 Date of Discharge: Dec 02, 2018 Admitting Diagnosis Comment: Atypical chest pain most likely related to anxiety and stressors at home and had a recent left heart catheterization less than 6 months ago with no significant coronary artery disease patent LAD and RCA stents and no significant pulmonary hypertension Anxiety disorder currently on SSRIs History of GERD History of coronary disease status post PCI and stenting as above Permanent pacemaker in place secondary to sick sinus syndrome Morbid obesity with a BMI of 45 Diabetes mellitus type 2 insulin requiring Essential hypertension Final Diagnosis Atypical chest pain most likely related to anxiety and stressors at home and had a recent left heart catheterization less than 6 months ago with no significant coronary artery disease patent LAD and RCA stents and no significant pulmonary hypertension Anxiety disorder currently on SSRIs History of GERD History of coronary disease status post PCI and stenting as above Permanent pacemaker in place secondary to sick sinus syndrome Morbid obesity with a BMI of 45 Diabetes mellitus type 2 insulin requiring Essential hypertension Brief Hospital Course Allergies Allergies Coded Allergies Type Severity Reaction Last Updated Verified Iodinated Contrast- Oral and IV Dye Allergy Intermediate 08/04/16 Yes Tetracyclines Allergy Intermediate 08/04/16 Yes morphine Allergy Intermediate 08/04/16 Yes nitrofurantoin Allergy Intermediate 08/04/16 Yes Vital Signs Vital Signs Date Time Temp Pulse Resp B/P (MAP) Pulse Ox O2 Delivery O2 Flow Rate FiO2 12/02/18 11:09 97.6 67 17 142/64 (90) 97 Room Air 97.6 Lab Results Laboratory Tests Test 11/30/18 18:33 11/30/18 23:00 12/01/18 02:00 12/01/18 20:00 White Blood Count 5.9 x10^3/uL (4.0-11.0) Red Blood Count 3.82 x10^6/uL (3.50-5.40) Hemoglobin 11.6 g/dL (12.0-15.5) Hematocrit 35.7 % (36.0-47.0) Mean Corpuscular Volume 94 fL (79-100) Mean Corpuscular Hemoglobin 30 pg (25-35) Mean Corpuscular Hemoglobin Concent 32 g/dL (31-37) Red Cell Distribution Width 13.4 % (11.5-14.5) Platelet Count 221 x10^3/uL (140-400) Neutrophils (%) (Auto) 57 % (31-73) Lymphocytes (%) (Auto) 30 % (24-48) Monocytes (%) (Auto) 7 % (0-9) Eosinophils (%) (Auto) 5 % (0-3) Basophils (%) (Auto) 1 % (0-3) Neutrophils # (Auto) 3.4 x10^3uL (1.8-7.7) Lymphocytes # (Auto) 1.8 x10^3/uL (1.0-4.8) Monocytes # (Auto) 0.4 x10^3/uL (0.0-1.1) Eosinophils # (Auto) 0.3 x10^3/uL (0.0-0.7) Basophils # (Auto) 0.1 x10^3/uL (0.0-0.2) Sodium Level 143 mmol/L (136-145) Potassium Level 3.9 mmol/L (3.5-5.1) Chloride Level 104 mmol/L (98-107) Carbon Dioxide Level 27 mmol/L (21-32) Anion Gap 12 (6-14) Blood Urea Nitrogen 37 mg/dL (7-20) Creatinine 1.5 mg/dL (0.6-1.0) Estimated GFR (Cockcroft-Gault) 33.7 BUN/Creatinine Ratio 25 (6-20) Glucose Level 94 mg/dL (70-99) Calcium Level 9.3 mg/dL (8.5-10.1) Magnesium Level 1.5 mg/dL (1.8-2.4) Total Bilirubin 0.2 mg/dL (0.2-1.0) Aspartate Amino Transf (AST/SGOT) 15 U/L (15-37) Alanine Aminotransferase (ALT/SGPT) 15 U/L (14-59) Alkaline Phosphatase 61 U/L (46-116) Troponin I Quantitative < 0.017 ng/mL (0.000-0.055) < 0.017 ng/mL (0.000-0.055) < 0.017 ng/mL (0.000-0.055) IB-Gby-C-Type Natriuretic Peptide 249 pg/mL (0-449) Total Protein 7.6 g/dL (6.4-8.2) Albumin 3.2 g/dL (3.4-5.0) Albumin/Globulin Ratio 0.7 (1.0-1.7) Lipase 604 U/L (73-393) Urine Collection Type Unknown Urine Color Yellow Urine Clarity Clear Urine pH 6.0 Urine Specific [place] 1.015 Urine Protein Negative mg/dL (NEG-TRACE) Urine Glucose (UA) Negative mg/dL (NEG) Urine Ketones (Stick) Negative mg/dL (NEG) Urine Blood Negative (NEG) Urine Nitrite Negative (NEG) Urine Bilirubin Negative (NEG) Urine Urobilinogen Dipstick 0.2 mg/dL (0.2 mg/dL) Urine Leukocyte Esterase Large (NEG) Urine RBC Rare /HPF (0-2) Urine WBC 20-40 /HPF (0-4) Urine Squamous Epithelial Cells Few /LPF Urine Renal Epithelial Cells Few /LPF Urine Bacteria Mod /HPF (0-FEW) Laboratory Tests Test 12/01/18 20:00 Urine Collection Type Unknown Urine Color Yellow Urine Clarity Clear Urine pH 6.0 Urine Specific [place] 1.015 Urine Protein Negative mg/dL (NEG-TRACE) Urine Glucose (UA) Negative mg/dL (NEG) Urine Ketones (Stick) Negative mg/dL (NEG) Urine Blood Negative (NEG) Urine Nitrite Negative (NEG) Urine Bilirubin Negative (NEG) Urine Urobilinogen Dipstick 0.2 mg/dL (0.2 mg/dL) Urine Leukocyte Esterase Large (NEG) Urine RBC Rare /HPF (0-2) Urine WBC 20-40 /HPF (0-4) Urine Squamous Epithelial Cells Few /LPF Urine Renal Epithelial Cells Few /LPF Urine Bacteria Mod /HPF (0-FEW) Brief Hospital Course Ms. Mott is a 78 old female who presented with the above-mentioned complaint of chest discomfort. The patient was seen in consultation by cardiology who did not find concerning signs or symptoms for ischemia. The patient is dealing with the family situation that prompts this episodes. Reassurance has been provided. Patient had a recent coronary angiographically recent transthoracic echocardiogram reason why she did not require further investigation. She had her device interrogated with no arrhythmias noted. She was encouraged to follow- up in the outpatient setting with her primary drilling engineer and with her primary care physician. No changes were made to her home medications either. Signs and symptoms of alarm were discussed prior to discharge all of her concerns were addressed to the best of my abilities next Physical exam: Gen.: morbidly obese in no apparent distress Head: Normal shape atraumatic Eyes: Pupils equal reactive to light and accommodation, normal conjunctivae and lids Ears: Normal shape Nose: Normal shape no trauma Mouth: No exudates of the back of throat no thrush no lesions Neck: Supple no JVD no carotid bruit or lymphadenopathy no thyromegaly Chest: distnat breath sounds due to body habitus Lungs clear to auscultation with good inspiratory effort no crackles rales or rhonchi Cardiovascular: distant cardiac sounds due to body habitus.S1-S2 regular rhythm no murmurs gallops or rubs Discharge Information Condition at Discharge: Improved Follow Up: Weeks Disposition/Orders: D/C to Home Scheduled Acetaminophen (Acetaminophen) 500 Mg Tablet, 2 TAB PO BID, #60 Ref 1 (Reported) Entered as Reported by: Sindhu Castillo on 01/11/182109 Last Action: Converted on 12/01/181845 by FELIPE OLVERA Amlodipine Besylate (Norvasc) 10 Mg Tablet, 1 TAB PO HS, #30 Ref 5 (Reported) Entered as Reported by: ELIGIO MOREIRA on 04/09/151625 Last Action: Continued on 12/01/181845 by FELIPE OLVERA Aspirin (Aspir 81) 81 Mg Tablet.dr, 1 TAB PO BID, #30 Ref 5 (Reported) Entered as Reported by: ELIGIO MOREIRA on 04/09/151625 Last Action: Continued on 12/01/181845 by FELIPE OLVERA Ezetimibe (Zetia) 10 Mg Tablet, 1 TAB PO DAILY for f, #30 Ref 5 (Reported) Entered as Reported by: FELIPE OLVERA on 12/01/181716 Last Taken: Unknown Dose on Unknown Date & Time Last Action: Continued on 12/01/181845 by FELIPE OLVERA Fexofenadine Hcl (Maryanne Allergy) 60 Mg Tablet, 60 MG PO DAILY, (Reported) Entered as Reported by: ELIGIO MOREIRA on 04/09/151625 Last Action: Converted on 12/01/181845 by FELIPE OLVERA Gabapentin (Gabapentin ) 300 Mg Capsule, 300 MG PO TID for NEUROGENIC PAIN, ( Reported) Entered as Reported by: FELIPE OLVERA on 12/01/181716 Last Taken: Unknown Dose on Unknown Date & Time Last Action: Continued on 12/01/181845 by FELIPE OLVERA Gemfibrozil (Lopid) 600 Mg Tablet, 1 TAB PO BID for high cholestrol , #60 Ref 5 (Reported) Entered as Reported by: FELIPE OLVERA on 12/01/181716 Last Taken: Unknown Dose on Unknown Date & Time Last Action: Continued on 12/01/181845 by FELIPE OLVERA Glimepiride (Glimepiride) 2 Mg Tablet, 2 MG PO BID, (Reported) Entered as Reported by: ALEXI GUERRERO on 07/13/1732 Last Action: Continued on 12/01/181845 by FELIPE OLVERA Hydrochlorothiazide (Hydrochlorothiazide Tablet ) 25 Mg Tablet, 1 TAB PO DAILY, #30 Ref 5 (Reported) Entered as Reported by: ELIGIO MOREIRA on 04/09/151625 Last Action: Continued on 12/01/181845 by FELIPE OLVERA Hydrochlorothiazide (Hydrochlorothiazide Tablet) 12.5 Mg Tablet, 25 MG PO DAILY for DIURETIC, Ref 0 (Reported) Entered as Reported by: FELIPE OLVERA on 12/01/181716 Last Taken: Unknown Dose on Unknown Date & Time Last Action: New Order on 12/01/181716 by FELIPE OLVERA Ipratropium/Albuterol Sulfate (Combivent Respimat Inhal) 4 Gm Aer.w.adap, 2 INH IH QID, (Reported) Entered as Reported by: ELIGIO MOREIRA on 04/09/151625 Last Action: Converted on 12/01/181845 by FELIPE OLVERA Iron (Iron) 18 Mg Tablet, 65 MG PO BID, (Reported) Entered as Reported by: ELIGIO MOREIRA on 04/09/151625 Last Action: Converted on 12/01/181845 by FELIPE OLVERA Levothyroxine Sodium (Levothyroxine Sodium) 112 Mcg Tablet, 112 MCG PO DAILYAC for THYROID SUPPLEMENT, #30 Ref 0 (Reported) Entered as Reported by: ALEXI GUERRERO on 07/13/1732 Last Action: Continued on 12/01/181845 by FELIPE OLVERA Lisinopril (Lisinopril) 20 Mg Tablet, 1 TAB PO DAILY for HTN, #30 Ref 5 ( Reported) Entered as Reported by: FELIPE OLVERA on 12/01/181716 Last Taken: Unknown Dose on Unknown Date & Time Last Action: Continued on 12/01/181845 by FELIPE OLVERA Meloxicam (Meloxicam) 7.5 Mg Tablet, 1 TAB PO DAILY for pain, #30 Ref 2 ( Reported) Entered as Reported by: FELIPE OLVERA on 12/01/181716 Last Taken: Unknown Dose on Unknown Date & Time Last Action: Converted on 12/01/181845 by FELIPE OLVERA Metoprolol Succinate (Metoprolol Succinate ( Xl )) 100 Mg Tab.er.24h, 100 MG PO DAILY, #30 Ref 0 Prescribed by: JOAN HAMMOND MD on 08/06/16 1131 Last Action: Continued on 12/01/181845 by FELIPE OLVERA Nitroglycerin (Nitrostat) 0.4 Mg Tab.subl, 1 TAB SL UD, #100 Ref 3 (Reported) Entered as Reported by: ELIGIO MOREIRA on 04/09/151625 Last Action: Reviewed on 12/01/181651 by FELIPE OLVERA [place]-3S/Dha/Epa/Fish Oil (Fish Oil 1,000 mg Softgel) 1 Each Capsule, 4 EACH PO BID for multivitamin, (Reported) Entered as Reported by: FELIPE OLVERA on 12/01/181716 Last Taken: Unknown Dose on Unknown Date & Time Last Action: Converted on 12/01/181845 by FELIPE OLVERA Pioglitazone Hcl (Actos) 15 Mg Tablet, 1 TAB PO DAILY for f, #30 Ref 5 (Reported ) Entered as Reported by: FELIPE OLVERA on 12/01/181716 Last Taken: Unknown Dose on Unknown Date & Time Last Action: Converted on 12/01/181845 by FELIPE OLVERA Rosuvastatin Calcium (Crestor) 10 Mg Tablet, 1 TAB PO QHS for high cholestrol , #30 Ref 5 (Reported) Entered as Reported by: FELIPE OLVERA on 12/01/181716 Last Taken: Unknown Dose on Unknown Date & Time Last Action: Converted on 12/01/181845 by FELIPE OLVERA Sertraline Hcl (Sertraline Hcl) 100 Mg Tablet, 100 MG PO DAILY for ANTI- DEPRESSANT, Ref 0 (Reported) Entered as Reported by: ELIGIO MOREIRA on 04/09/151625 Last Action: Converted on 12/01/181845 by FELIPE OLVERA Trazodone Hcl (Trazodone Hcl) 50 Mg Tablet, 50 MG PO HS, (Reported) Entered as Reported by: ELIGIO MOREIRA on 04/09/151625 Last Action: Continued on 12/01/181845 by FELIPE OLVERA Verapamil Hcl (Verapamil Er) 240 Mg Cap24h.pel, 240 MG PO DAILY, (Reported) Entered as Reported by: ALEXI GUERRERO on 07/13/17 0732 Last Action: Converted on 12/01/181845 by FELIPE OLVERA [Pantoprazole] 40 MG TABLET.DR, 40 MG PO DAILYAC for GERD for 30 Days, #30 Prescribed by: RAJ WHELAN MD on 12/02/18 1129 Scheduled PRN Albuterol Sulfate (Proair Hfa Inhaler) 8.5 Gm Hfa.aer.ad, 1 PUFF INH PRN Q6HRS PRN for SHORTNESS OF BREATH, Ref 0 (Reported) Entered as Reported by: ELIGIO MOREIRA on 04/09/151625 Last Action: Reviewed on 12/01/181651 by FELIPE OLVERA Miscellaneous Medications Multivitamin (Multi Vitamin Daily) 1 Each Tablet, 1 EACH PO, (Reported) Entered as Reported by: ELIGIO MOREIRA on 04/09/151625 Last Action: Reviewed on 12/01/181651 by FELIPE OLVERA Discontinued Medications Alprazolam (Alprazolam) 0.5 Mg Tablet, 1 TAB PO BID, #60 (Reported) Entered as Reported by: Sindhu Castillo on 01/11/182109 Last Action: Discontinued on 12/01/181651 by FELIPE OLVERA Diazepam (Valium) 5 Mg Tablet, 5 MG PO BID PRN for ANXIETY / AGITATION, ( Reported) Entered as Reported by: Sindhu Castillo on 01/11/182109 Last Action: Discontinued on 12/01/181651 by FELIPE OLVERA Gabapentin (Gabapentin ) 300 Mg Capsule, 1 CAP PO DAILY, #90 Ref 5 (Reported) Entered as Reported by: ELIGIO MOREIRA on 04/09/151625 Last Action: Discontinued on 12/01/181651 by FELIPE OLVERA Gabapentin (Gabapentin) 600 Mg Tablet, 600 MG PO HS, (Reported) Entered as Reported by: Sindhu Castillo on 01/11/182109 Last Action: Discontinued on 12/01/181651 by FELIPE YOUNG Loratadine (Loratadine) 10 Mg Tablet, 10 MG PO DAILY PRN for ALLERGIES, ( Reported) Entered as Reported by: ALEXI GUERRERO on 07/13/17731 Last Action: Discontinued on 12/01/181651 by FELIPE OLVERA [place]-3 Fatty Acids (Fish Oil) 300 Mg Capsule, 300 MG PO BID, (Reported) Entered as Reported by: ELIGIO MOREIRA on 04/09/15 1626 Last Action: Discontinued on 12/01/181651 by FELIPE OLVERA Rosuvastatin Calcium (Crestor) 20 Mg Tablet, 20 MG PO HS for FOR CHOLESTEROL, # 30 Ref 0 (Reported) Entered as Reported by: ALEXI GUERRERO on 07/13/17731 Last Action: Discontinued on 12/01/181651 by RAJ MYERS MD Dec 02, 2018 13:38
--- NOTE | 2018-12-02 13:45 | PDOC ---
MENDEZ YUN [employer]S COUNTER SPECIALIST 12/02/18 1344: CARDIO Progress Notes Date and Time Date of Service 12/02/2018 Time of Evaluation 1040 Subjective Subjective: No Chest Pain, No shortness of breath, No Palpitations Vitals Vitals Vital Signs Date Time Temp Pulse Resp B/P (MAP) Pulse Ox O2 Delivery O2 Flow Rate FiO2 12/02/18 11:09 97.6 67 17 142/64 (90) 97 Room Air 97.6 Weight Weight [ ] Input and Output Intake and Output Intake and Output 12/02/18 06:59 Intake Total 800 ml Output Total 1200 ml Balance -400 ml Intake Oral 800 ml Output Urine Total 1200 ml # Voids 1 Laboratory Labs Laboratory Tests Test 12/01/18 20:00 Urine Collection Type Unknown Urine Color Yellow Urine Clarity Clear Urine pH 6.0 Urine Specific [place] 1.015 Urine Protein Negative mg/dL (NEG-TRACE) Urine Glucose (UA) Negative mg/dL (NEG) Urine Ketones (Stick) Negative mg/dL (NEG) Urine Blood Negative (NEG) Urine Nitrite Negative (NEG) Urine Bilirubin Negative (NEG) Urine Urobilinogen Dipstick 0.2 mg/dL (0.2 mg/dL) Urine Leukocyte Esterase Large (NEG) Urine RBC Rare /HPF (0-2) Urine WBC 20-40 /HPF (0-4) Urine Squamous Epithelial Cells Few /LPF Urine Renal Epithelial Cells Few /LPF Urine Bacteria Mod /HPF (0-FEW) Physical Exam HEENT: Neck Supple W Full Motion Chest: Symmetric LUNGS: Clear to Auscultation Heart: S1S2, RRR (paced) Abdomen: Soft N/T Extremities: No Calf Tenderness Neurology: alert, oriented, follow commands Assessment Assessment 1. Atypical chest pain: due to GI and anxiety. trops nml. EKG paced rhythm no acute changes. Recent TTE and LHC as noted above. 2. Uncontrolled anxiety: Defer to PCP. on home SSRI 3. GERD: PPI 4. CAD: past stents 5. SSS/PPM in situ: [place] scientific. V paced, no significant arrhythmias. normal function, near LAURI 6. DM2/HLP 7. HTN: controlled Recommendations 1. Will soon set generator change as an outpt 2. Continue with secondary prevention measures. Continue home BP meds 3. Follow up in office as scheduled. CATHLEEN ZENDEJAS MD 12/02/18 2310: CARDIO Progress Notes Plan Plan Pt. seen and examined. Agree with above [employer] ATTENDANT note. f/u on an outpt basis for gen change. non-cardiac chest pain. thanks. ok to dc today MENDEZ YUN APRN Dec 02, 2018 13:44 CATHLEEN ZENDEJAS MD Dec 02, 2018 23:10
[2018-12-02 15:07] VITALS: BP 160/70
== END 2018-12-02 18:52 | disposition home or self-care (01) | DRG 392 ==
LOC: ER 18:08 → 2 NORTH 20:00
PROVIDERS: ADMIT Family Medicine; ATTEND Family Medicine
DX: K21.9 Gastro-esophageal reflux disease without esophagitis (principal); Z68.42 Body mass index [BMI] 45.0-49.9, adult; F41.9 Anxiety disorder, unspecified; R07.89 Other chest pain; I10 Essential (primary) hypertension; F32.9 Major depressive disorder, single episode, unspecified; E11.42 Type 2 diabetes mellitus with diabetic polyneuropathy; M19.90 Unspecified osteoarthritis, unspecified site; E03.9 Hypothyroidism, unspecified; E66.01 Morbid (severe) obesity due to excess calories; E78.00 Pure hypercholesterolemia, unspecified; E78.5 Hyperlipidemia, unspecified; I25.10 Atherosclerotic heart disease of native coronary artery without angina pectoris; J44.9 Chronic obstructive pulmonary disease, unspecified; Z79.4 Long term (current) use of insulin; Z82.49 Family history of ischemic heart disease and other diseases of the circulatory system; Z90.49 Acquired absence of other specified parts of digestive tract; Z90.710 Acquired absence of both cervix and uterus; Z95.0 Presence of cardiac pacemaker; Z95.5 Presence of coronary angioplasty implant and graft; Z88.5 Allergy status to narcotic agent; Z88.8 Allergy status to other drugs, medicaments and biological substances; Z88.1 Allergy status to other antibiotic agents; Z91.041 Radiographic dye allergy status
CPT/HCPCS: 36415; 71045; 80053; 81001; 83690; 83735; 83880; 84484; 85025; 93005; 94640; 94760; 96361; 96374; J2060; J7030; J7620; 99285-25

== ENCOUNTER 2019-06-23 09:07 | Outpatient (CLI) | payer MEDICARE, BC ==
[2019-06-23] VITALS (9 sets, daily range): BP systolic 151–178; BP diastolic 50–85
[~2019-06-23] VITALS: Ht 154.9 cm; Wt 108.0 kg
[~2019-06-23 09:07] MED LIST changes: +BENZ100C PO; +CRESTOR10 MG PO; +DICY10CA3 PO; -EZET10TA18 PO; +EZET10TA20 PO; +GEMF600T PO; -GLIM1TAB2 PO; +GLIM1TAB3 PO; -GLIM2TAB2 PO; +GLIM2TAB3 PO; +HYDR12.58 PO; -NITR0.4T SL; +NITR0.4T24 SL; +OMEG-165 PO; -PANT40TA5 PO; +PANT40TA77 PO; +PIOG15TA42 PO; +Pantoprazole PO; +TRAM50TA PO; +TRIA1CAP PO
[2019-06-23] MEDS ORDERED: fentaNYL PF VIAL 100 MCG/2 ML VIAL ONE (09:36)
[2019-06-23] MEDS ORDERED: MIDAZOLAM HCL/PF 2 MG/2 ML VIAL. ONE ×2 (09:36→10:31)
[2019-06-23] MEDS ORDERED: LIDOCAINE 2%/EPI 1:100,000 20 ML VIAL. ONE (09:37)
[2019-06-23 09:44] LABS: HEMATOCRIT 35.4 % (36.0-47.0); HEMOGLOBIN 11.5 g/dL (12.0-15.5); RED BLOOD COUNT 3.73 x10^6/uL (3.50-5.40); RED CELL DISTRIBUTION WIDTH 14.1 % (11.5-14.5); WHITE BLOOD COUNT 4.9 x10^3/uL (4.0-11.0)
[2019-06-23 09:59] LABS: CALCIUM 10.1 mg/dL (8.5-10.1); CREATININE 1.6 mg/dL (0.6-1.0); GFR 31.3; POTASSIUM 3.8 mmol/L (3.5-5.1)
[2019-06-23] MEDS ORDERED: fentaNYL PF VIAL 100 MCG/2 ML VIAL IV ONE (10:00)
[2019-06-23] MEDS ORDERED: BACITRACIN 50,000 UNIT in IV NORMAL SALINE 250ML 250 ML IRR ONE (10:00)
[2019-06-23] MEDS ORDERED: LIDOCAINE 2%/EPI 1:100,000 20 ML VIAL. IJ ONE (10:00)
[2019-06-23] MEDS ORDERED: MIDAZOLAM HCL/PF 2 MG/2 ML VIAL. IV ONE (10:00)
[2019-06-23 10:29] LABS: PROTHROMBIN TIME PATIENT 13.9 SEC (11.7-14.0)
--- NOTE | 2019-06-23 12:27 | CARD ---
MR#: [id number] Date of Study: 06/23/2019 Ordering Physician: CATHLEEN ZENDEJAS, Referring Physician: CATHLEEN ZENDEJAS, Tech: APPROVED REPORT HISTORY The Patient is a 78 year-old female with a history of SS PROCEDURES FLUORO TIME: 0.0 MIN DOSE:0.08 GYCM2 MODERATE SEDATION TIME: 76 MIN Dual chamber pacemaker generator change INDICATIONS End of battery life IMPLANTED DEVICES After appropriate informed consent the patient was brought to the catheterization laboratory. The lef t chest was prepped and draped in usual sterile fashion next 40 mL of 2% lidocaine local anesthesia w as administered over the left chest wall site at the level of the previous pacemaker. Using a 15 blad e scalpel an incision was made and cautery and blunt dissection was used to remove the previously imp lanted [employer] battery. The battery was then removed and quickly replaced with a [employer]urity 2240 pacemaker with serial number [id number]. The leads were connected appropriately and adequa te thresholds and sensitivities were obtained. The atrial lead is a [employer] lead with a ser ial number of [id number], the ventricular lead is a [employer] lead with serial #[id number] The incision was then closed in 3 layers. Due to significant morbid obesity there was difficulty oppo sing the skin edges and ultimately were able to oppose the skin edges and Steri-Strips were placed. CONCLUSION Successful generator change for end-of-life in the setting of sick sinus syndrome. Signed by : Cathleen Zendejas, Electronically Approved : 06/23/2019 12:26:53
--- NOTE | 2019-06-23 14:06 | NUR ---
Discharge Note: [facility] Discharge instructions and discharge home medications reviewed with Patient and a copy given. All questions have been answered and understanding verbalized. The following instructions and handouts were given: Post moderate sedation, PPM genorator Change. Discontinued lines and drains: Right FA IV dc'd, tip intact. Patient discharged to home with granddaughter via car.
== END 2019-06-23 14:00 | disposition home or self-care (01) ==
LOC: CCL 09:07
PROVIDERS: ATTEND Internal Medicine Cardiovascular Disease
DX: Z45.010 Encounter for checking and testing of cardiac pacemaker pulse generator [battery] (principal); I49.5 Sick sinus syndrome
CPT/HCPCS: 33228; 36415; 80048; 85027; 85610; 99152; 99153; C1785; J0696; J1644; J2250; J3010; J3490; J7050; 33213; J7030

== ENCOUNTER → 2019-07-18 | Outpatient (CLI) | payer MEDICARE, BC ==
[2019-06-23 13:30] VITALS: BP 178/70
[~2019-07-18] MED LIST changes: +IOHEXOL 300 MG/ML 50 ML VIAL. INT ART ONE; +LIDOCAINE 1% Multi-Dose 20 ML VIAL. ID ONE
--- NOTE | 2019-07-18 16:42 | KCIC ---
STUDY: CT arthrogram of the left shoulder INDICATION: Left shoulder pain. Decreased range of motion. COMPARISON: No prior cross-sectional imaging of the left shoulder is available for comparison. TECHNIQUE: Axial CT imaging of the left shoulder performed after the intra-articular injection of contrast. The injection portion of the procedure is detailed separately. Coronal and sagittal reformats were obtained. One or more of the following individualized dose reduction techniques were utilized for this examination: 1. Automated exposure control 2. Adjustment of the mA and/or kV according to patient size 3. Use of iterative reconstruction technique. FINDINGS: Sequela of relatively recently placed left chest wall pacer device. AC joint: Minimal arthrosis. No injected contrast is present within the subacromial subdeltoid bursa. Rotator cuff: Thin articular sided tear of the supraspinatus anterior fibers at the footprint as evidenced by a small amount of injected contrast extending into the supraspinatus tendon substance. This tear defect measures 2 mm AP by approximately 4 mm mediolateral, reference images 9 series 603 and image 10 series 602. Interstitial extension of tearing with a small amount of contrast propagating medially by up to 1.3 cm, image 11 series 602. Contrast approaches but does not extend through the bursal sided fibers and there is collective involvement of approximately 80% tendon thickness. No articular sided tear of the infraspinatus, teres minor or subscapularis. Rotator cuff muscular bulk is maintained. Long head biceps tendon: Intact. Labrum: Areas of labral blunting noted such as mid posterior to posterior/inferior. Cartilage: No full-thickness chondral defect identified. Bones: No acute fracture. Degenerative cystic change at the greater tuberosity subjacent to the supraspinatus insertion, image 7 series 603. Miscellaneous: No axillary adenopathy. The visualized lungs are unremarkable. IMPRESSION: 1.Small articular sided tear of the anterior supraspinatus at the footprint with the tear defect measuring approximately 2 mm AP by 4 mm mediolateral. Interstitial extension of tearing propagating medially by up to 1.3 cm. Though the areas of interstitial extension are thin and somewhat serpiginous, the affected area of the tendon collectively involves approximately 80% of the tendon thickness. 2. Intact long head biceps tendon. Areas of labral blunting but without displaced tear. No full-thickness chondral defect. Electronically signed by: JOANNE RICH MD (07/18/2019 4:35 PM) [facility]-[id number]
--- NOTE | 2019-07-20 08:43 | KCIC ---
Study: Fluoroscopically guided arthrogram of the left shoulder joint for CT Indication: Left shoulder pain with limited range of motion. Contrast: Approximately 12 cc Omnipaque 300 Technique: A timeout was performed prior to beginning the procedure in order to confirm patient identity and laterality of the injection. The risks, benefits and alternatives of the procedure were discussed. Utilizing sterile technique, fluoroscopic guidance and local anesthesia with 1% lidocaine, the left shoulder joint was accessed utilizing a 22-gauge, 3.5" spinal needle. Confirmation of needle position was obtained with a small amount of radiopaque contrast. Subsequently, 12 cc of mixture containing 15 cc Omnipaque 300 and 5 cc 1% lidocaine was injected. There were no immediate post procedure complications. Fluoroscopy time: 38 seconds Number of images obtained: 1 Impression: Technically successful fluoroscopic guided arthrogram of the left shoulder joint without immediate postprocedure complication. Electronically signed by: JOANNE RICH MD (07/20/2019 8:40 AM) [id number]
== END | disposition home or self-care (01) ==
LOC: KCIC 09:39
PROVIDERS: ATTEND Family Medicine
DX: M25.512 Pain in left shoulder (principal)
CPT/HCPCS: 23350; 73201; 77002; Q9967; 73040

== ENCOUNTER → 2020-03-26 | Outpatient (CLI) | payer MEDICARE, BC ==
[2019-06-23 13:30] VITALS: BP 178/70
[~2020-03-26] MED LIST changes: -GLIM1TAB3 PO; +GLIM1TAB7 PO; -GLIM2TAB3 PO; +GLIM2TAB7 PO; -IOHEXOL 300 MG/ML 50 ML VIAL. INT ART ONE; -LEVO112T4 PO; +LEVO112T49 PO; -LIDOCAINE 1% Multi-Dose 20 ML VIAL. ID ONE
--- NOTE | 2020-03-26 09:49 | CARD ---
MR#: [id number] Date of Study: 03/26/2020 Ordering Physician: CATHLEEN ZENDEJAS, Referring Physician: CATHLEEN ZENDEJAS, Tech: Mallory Ortez APPROVED REPORT EXAM: Two-dimensional and M-mode echocardiogram with Doppler and color Doppler. Other Information Quality : FairHR: 67bpm Technically limited study due to body habitus and COPD INDICATION COPD Pulmonary Hypertention Surgery/Intervention Pacemaker: RISK FACTORS Hypertension Hyperlipidemia Diabetes 2D DIMENSIONS RVDd4.0 (2.9-3.5cm)Left Atrium(2D)3.9 (1.6-4.0cm) IVSd1.1 (0.7-1.1cm)Aortic Root(2D)2.7 (2.0-3.7cm) LVDd4.7 (3.9-5.9cm)LVOT Diameter1.9 (1.8-2.4cm) PWd1.0 (0.7-1.1cm)LVDs2.9 (2.5-4.0cm) FS (%) 38.3 %SV71.4 ml LVEF(%)68.5 (>50%) Aortic Valve AoV Peak Maxwell.251.7cm/sAoV VTI67.3cm AO Peak GR.25.3mmHgLVOT Peak Maxwell.130.3cm/s LVOT VTI 35.52cmAO Mean GR.16mmHg IRISH (VMAX)1.70lo6ZDK (VTI)1.47cm2 Mitral Valve MV E Dgcnjzhl48.4cm/sMV DECEL TOCP400je MV A Xhpqrghk40.4cm/sMV E Mean Gr.3mmHg MV ZVJ70ywJ/A Ratio1.0 MVA (PHT)3.83cm2 TDI E/Lateral E'14.5E/Medial E'12.3 Tricuspid Valve TR P. Dqixvhya282ql/sRAP BKKQXLPO2aoVd TR Peak Gr.50fcLaOCHT93efSg LEFT VENTRICLE The left ventricle is normal size. There is borderline to mild concentric left ventricular hypertroph y. The left ventricular systolic function is normal. The Ejection Fraction is 55%. There is normal LV segmental wall motion. Transmitral Doppler flow pattern is Grade I-abnormal relaxation pattern. RIGHT VENTRICLE The right ventricle is normal size. There is normal right ventricular wall thickness. The right ventr icular systolic function is normal. There is a pacemaker lead in the right ventricle. ATRIA The left atrium size is normal. The right atrium size is normal. The interatrial septum is intact wit h no evidence for an atrial septal defect or patent foramen ovale as noted on 2-D or Doppler imaging. AORTIC VALVE The aortic valve is calcified but opens well. Doppler and Color Flow revealed trace aortic regurgitat ion. Calculated aortic valve area is 1.33 cm2 with maximum pressure gradient of 34 mmHg and mean pres sure gradient of 19 mmHg. MITRAL VALVE The mitral valve is normal in structure and function. There is no evidence of mitral valve prolapse. There is no mitral valve stenosis. Mitral valve mean gradient 2.5 mmHg. Doppler and Color Flow reveal ed trace to mild mitral regurgitation. TRICUSPID VALVE The tricuspid valve is normal in structure and function. Doppler and Color Flow revealed mild tricusp id regurgitation with an estimated PAP of 45 mmHg. There is no tricuspid valve stenosis. PULMONIC VALVE The pulmonic valve is not well visualized. Doppler and Color Flow revealed trace pulmonic valvular re gurgitation. GREAT VESSELS The aortic root is normal in size. The ascending aorta is normal in size. The IVC is dilated. PERICARDIAL EFFUSION There is no evidence of significant pericardial effusion. Critical Notification Critical Value: No <Conclusion> The left ventricular systolic function is normal. The Ejection Fraction is 55%. There is normal LV segmental wall motion. Transmitral Doppler flow pattern is Grade I-abnormal relaxation pattern. There is a pacemaker lead in the right atrium and right ventricle. Trace to mild mitral regurgitation. Mild tricuspid regurgitation with an estimated PAP of 45 mmHg. There is no evidence of significant pericardial effusion. Signed by : Deion Soto, Electronically Approved : 03/26/2020 09:48:59
== END | disposition home or self-care (01) ==
LOC: ECHO 08:02
PROVIDERS: ATTEND Internal Medicine Cardiovascular Disease
DX: I08.8 Other rheumatic multiple valve diseases (principal); Z95.0 Presence of cardiac pacemaker
CPT/HCPCS: 93306

== ENCOUNTER 2020-08-11 04:36 | Emergency (ER) | payer MEDICARE, BC ==
[~2020-08-11] VITALS: Ht 154.9 cm; Wt 113.6 kg
--- NOTE | 2020-08-11 05:06 | PHYS DOC ---
Past Medical History Past Medical History: Anemia, Anxiety, CAD, COPD, Depression, Diabetes-Type II, High Cholesterol, Hypertension, Hypothyroid, Renal Disease (JOIE ESPOSITO MD) Past Surgical History: Angioplasty, Appendectomy, Cholecystectomy, Hysterectomy, Pacemaker, Tonsillectomy Additional Past Surgical Histo: 6 cardiac stents, (JOIE ESPOSITO MD) Smoking Status: Never Smoker Alcohol Use: Rarely Drug Use: None (JOIE ESPOSITO MD) General Adult EDM: Chief Complaint: SHOULDER INJURY HPI: HPI: Patient is a 79 year old female who arrives via EMS with a chief complaint of left shoulder pain. Patient had a mechanical fall and landed on her left shoulder. Patient also has neck pain. Patient does not recall hitting her head or having loss of consciousness. Patient also has left hip pain. Pain is currently 4 out of 10 worse with palpation and range of motion. Patient declines pain medicine at this time. Of note patient has a sick contact in her house with COVID-19 although she has isolated from him and has no current symptoms. (JOIE ESPOSITO MD) Review of Systems: Review of Systems: Constitutional: Denies fever or chills. [] Eyes: Denies change in visual acuity. [] HENT: Denies nasal congestion or sore throat. [] Respiratory: Denies cough or shortness of breath. [] Cardiovascular: Denies chest pain or edema. [] GI: Denies abdominal pain, nausea, vomiting, bloody stools or diarrhea. [] : Denies dysuria. [] Musculoskeletal: Complains of neck, back, left shoulder and left hip pain Integument: Denies rash. [] Neurologic: Denies headache, focal weakness or sensory changes. [] Endocrine: Denies polyuria or polydipsia. [] Lymphatic: Denies swollen glands. [] Psychiatric: Denies depression or anxiety. [] (JOIE ESPOSITO MD) Heart Score: Risk Factors: Risk Factors: DM, Current or recent (<one month) smoker, HTN, HLP, family history of CAD, obesity. Risk Scores: Score 0 - 3: 2.5% MACE over next 6 weeks - Discharge Home Score 4 - 6: 20.3% MACE over next 6 weeks - Admit for Clinical Observation Score 7 - 10: 72.7% MACE over next 6 weeks - Early Invasive Strategies (JOIE ESPOSITO MD) Allergies: Allergies: Allergies Coded Allergies Type Severity Reaction Last Updated Verified Iodinated Contrast Media Allergy Intermediate FLU SYMPTOMS, NASAL CONGESTION 07/18/19 Yes Tetracyclines Allergy Intermediate 08/04/16 Yes morphine Allergy Intermediate 08/04/16 Yes nitrofurantoin Allergy Intermediate 08/04/16 Yes tetrabenazine Allergy Intermediate 03/29/19 Yes (JOIE ESPOSITO MD) Physical Exam: PE: Constitutional: Well developed, well nourished, no acute distress, non-toxic appearance. [] HENT: Normocephalic, atraumatic, bilateral external ears normal, no trismus nose normal. [] Eyes: PERRLA, EOMI, conjunctiva normal, no discharge. [] Neck: Mild tender to palpate, more prominent on the left side Cardiovascular:Heart rate regular rhythm, peripheral pulses are intact cap refill is brisk Lungs & Thorax: Bilateral breath sounds clear, no respiratory distress Abdomen: , soft, no tenderness, no masses, no pulsatile masses. [] Skin: Warm, dry, no erythema, no rash. [] Back: Tender to palpate lumbar spine Extremities: Tenderness to palpate left shoulder, limited range of motion due to pain. Mild tenderness to palpate left hip, all extremities are neurovascular intact distally. Neurologic: Alert and oriented X 3, normal motor function, normal sensory function, no focal deficits noted. [] Psychologic: Affect normal, judgement normal, mood normal. [] (JOIE ESPOSITO MD) Current Patient Data: Vital Signs: Vital Signs Date Time Temp Pulse Resp B/P (MAP) Pulse Ox O2 Delivery O2 Flow Rate FiO2 08/11/20 04:36 98.4 68 16 149/67 (94) 97 Room Air 98.4 (JOIE ESPOSITO MD) EKG: EKG: [] (JOIE ESPOSITO MD) Radiology/Procedures: Radiology/Procedures: [] (JOIE ESPOSITO MD) Course & Med Decision Making: Course & Med Decision Making Pertinent Labs and Imaging studies reviewed. (See chart for details) [] Care will be signed out to Dr. Simpson with imaging and disposition pending. (JOIE ESPOSITO MD) Course & Med Decision Making Assumed care of patient at checkout. At checkout CT and x-rays were pending. I have fully reviewed imaging and at this time there are no signs of bleeding or fracture. Patient is feeling better would like to go home. Patient's test results and vitals while in the ED were fully reviewed and discussed with the patient. Patient is stable and at this time does not need admission to the hosp ital. We have discussed strict return precautions and the importance of following up with their Primary Care Physician. Patient stated understanding and was given an opportunity to ask any questions. Patient is in agreement with plan. (ASHIA SIMPSON MD) Dragon Disclaimer: Dragon Disclaimer: This electronic medical record was generated, in whole or in part, using a voice recognition dictation system. (JOIE ESPOSITO MD) Departure Departure Impression: Primary Impression: Injury of left shoulder Additional Impression: Fall Disposition: 01 DC HOME SELF CARE/HOMELESS Condition: STABLE Referrals: NAIF GONZALES MD (PCP) Patient Instructions: Fall Prevention and Home Safety, Shoulder Pain JOIE ESPOSITO MD Aug 11, 2020 05:06 ASHIA SIMPSON MD Aug 11, 2020 07:17
--- NOTE | 2020-08-11 06:21 | RAD ---
EXAM: 1. CT HEAD WITHOUT CONTRAST. 2. CT CERVICAL SPINE WITHOUT CONTRAST. HISTORY: Fall, trauma. TECHNIQUE: Computed tomography of the head and cervical spine was performed without intravenous contrast. One or more of the following individualized dose reduction techniques were utilized for this examination: 1. Automated exposure control. 2. Adjustment of the mA and/or kV according to patient size. 3. Use of iterative reconstruction technique. COMPARISON: None. FINDINGS: There is no intracranial hemorrhage. Hypoattenuation within the white matter indicates moderate chronic microangiopathic change. Prominence of the lateral ventricles and hemispheric sulci indicates mild atrophy. The visualized paranasal sinuses appear clear. There are changes of bilateral cataract surgery. The temporal bones are unremarkable. The calvarium reveals no suspicious lesions. There are atherosclerotic calcifications of the internal carotid arteries. Reversal of the normal cervical lordosis is likely positional. There is slight grade 1 anterolisthesis at C4-5. The craniocervical junction is unremarkable. No fractures are identified. Degenerative disc disease is moderate to severe from C5 through C7 and moderate at C4-5. There is no prevertebral soft tissue swelling. At C2-3, there is a small posterior disc bulge. Facet osteoarthritis is moderate on the left and mild on the right. At C3-4, there is moderate right facet osteoarthritis. Right neural foraminal stenosis is mild. At C4-5, there is a small posterior disc bulge. Facet osteoarthritis is moderate bilaterally. Uncovertebral osteoarthritis is mild on the left. At C5-6, there is a small posterior disc-osteophyte complex. Uncovertebral osteoarthritis is moderate on the right and mild on the left. Neural foraminal stenosis is moderate on the left. At C6-7, there is a small posterior disc-osteophyte complex. Uncovertebral osteoarthritis is moderate bilaterally. Neural foraminal stenosis is moderate on the right. Pacemaker leads are partially visualized. IMPRESSION: 1. No acute intracranial findings. 2. Mild atrophy and moderate chronic microangiopathic white matter change. 3. No cervical fracture or acute malalignment. 4. Moderate cervical degenerative changes as above. Electronically signed by: Michelle Moon MD (08/11/2020 6:18 AM) [facility]
--- NOTE | 2020-08-11 06:36 | RAD ---
EXAM: CT lumbar spine without contrast. HISTORY: Fall, pain. TECHNIQUE: CT of the lumbar spine was performed without intravenous contrast. One or more of the following individualized dose reduction techniques were utilized for this examination: 1. Automated exposure control. 2. Adjustment of the mA and/or kV according to patient size. 3. Use of iterative reconstruction technique. COMPARISON: None. FINDINGS: Cholecystectomy clips are noted. There are moderate atherosclerotic calcifications. Sigmoid diverticulosis is partially visualized. A cyst in the right kidney measures at least 3.7 cm. Sacroiliac osteoarthritis is moderate on the right and mild on the left. Lumbar alignment is maintained. Vertebral body heights are maintained, and no fractures are identified. Osteopenia is at least moderate. Degenerative disc disease is moderate at L4-5 and moderate to severe at L5-S1. From L1 through L4, there are minimal posterior disc bulges. There is no stenosis. At L4-5, there is a moderate posterior disc bulge. Facet osteoarthritis is moderate to severe. Central canal stenosis is moderate to severe. Neural foraminal stenosis is moderate on the left and mild on the right. L5-S1, there is moderate to severe facet osteoarthritis bilaterally. Neural foraminal stenosis is moderate to severe on the left and moderate on the right. IMPRESSION: 1. No fracture. 2. Moderate degenerative changes inferiorly result in central canal stenosis that is moderate to severe at L4-5. Neural foraminal stenosis is up to moderate/severe on the left at L5-S1. MRI could further assess stenosis if there is persistent concern. Electronically signed by: Michelle Moon MD (08/11/2020 6:34 AM) [facility]
--- NOTE | 2020-08-11 06:39 | RAD ---
EXAM: 1. CHEST ONE VIEW. 2. LEFT SHOULDER 3 VIEWS. 3. LEFT HUMERUS 2 VIEWS. HISTORY: Fall, trauma. COMPARISON: 03/28/2019. FINDINGS: A left-sided pacemaker has its leads in the right atrium and right ventricle. There are no confluent infiltrates. There is no pneumothorax or pleural effusion. The heart is not enlarged. There are atherosclerotic calcifications of the aorta. No fractures are appreciated about the left shoulder or within the left humerus. Glenohumeral joint space is not well profiled but alignment is maintained. Acromioclavicular osteoarthritis is mild for patient age. The alignment of the elbow appears maintained. IMPRESSION: 1. No confluent infiltrates. 2. No fracture or malalignment. Electronically signed by: Michelle Moon MD (08/11/2020 6:36 AM) [facility]
--- NOTE | 2020-08-11 06:41 | RAD ---
EXAM: HIP LEFT 2V WITH PELVIS. HISTORY: Fall, trauma. COMPARISON: 09/02/2017. FINDINGS: No fractures are identified. The joint spaces and alignment of both hips appear maintained. There are moderate degenerative changes at the lumbosacral junction and pubic symphysis. Surgical clips project over the right groin. IMPRESSION: 1. No fracture. Electronically signed by: Michelle Moon MD (08/11/2020 6:38 AM) [facility]
[2020-08-11 07:11] VITALS: BP 129/60
== END 2020-08-11 07:55 | disposition home or self-care (01) ==
LOC: ER 04:36
DX: S49.92XA Unspecified injury of left shoulder and upper arm, initial encounter (principal); M25.552 Pain in left hip; M54.2 Cervicalgia; R51.9 Headache, unspecified; J44.9 Chronic obstructive pulmonary disease, unspecified; I25.10 Atherosclerotic heart disease of native coronary artery without angina pectoris; E78.00 Pure hypercholesterolemia, unspecified; I10 Essential (primary) hypertension; E03.9 Hypothyroidism, unspecified; F41.9 Anxiety disorder, unspecified; Z95.5 Presence of coronary angioplasty implant and graft; Z95.0 Presence of cardiac pacemaker; Z90.89 Acquired absence of other organs; Z90.49 Acquired absence of other specified parts of digestive tract; Z90.710 Acquired absence of both cervix and uterus; Z91.041 Radiographic dye allergy status; Z88.5 Allergy status to narcotic agent; Z88.8 Allergy status to other drugs, medicaments and biological substances; W18.39XA Other fall on same level, initial encounter; Y93.89 Activity, other specified; Y92.89 Other specified places as the place of occurrence of the external cause; Y99.8 Other external cause status
CPT/HCPCS: 70450; 71045; 72125; 72131; 73030; 73060; 73502; 99285-25

== ENCOUNTER 2020-08-11 17:59 | Emergency (ER) | payer MEDICARE, BC ==
[~2020-08-11] VITALS: Ht 154.9 cm; Wt 113.0 kg
--- NOTE | 2020-08-11 22:15 | PHYS DOC ---
Past Medical History Past Medical History: Anemia, Anxiety, CAD, COPD, Depression, Diabetes-Type II, High Cholesterol, Hypertension, Hypothyroid, Renal Disease Past Surgical History: Angioplasty, Appendectomy, Cholecystectomy, Hysterectomy, Pacemaker, Tonsillectomy Additional Past Surgical Histo: 6 cardiac stents, Smoking Status: Never Smoker Alcohol Use: Rarely Drug Use: None General Adult EDM: Chief Complaint: SHORTNESS OF BREATH HPI: HPI: Patient is a 79 year old female who presents with a 2-day history of fever cough myalgias headache. Patient has a known sick contact with COVID-19. Patient denies any vomiting or diarrhea but has some mild shortness of breath. Patient has a dry cough and moderate to severe myalgias. Symptoms are worse with activity. Patient states her symptoms seem better with rest. Review of Systems: Review of Systems: Constitutional: Complains of fever Eyes: Denies change in visual acuity. [] HENT: Complains of congestion and loss of taste and smell Respiratory: Complains of cough and shortness of breath Cardiovascular: Denies chest pain or edema. [] GI: Denies abdominal pain, nausea, vomiting, bloody stools or diarrhea. [] : Denies dysuria. [] Musculoskeletal: Complains of myalgias Integument: Denies rash. [] Neurologic: Complains of headache but no focal weakness or sensory changes. [] Endocrine: Denies polyuria or polydipsia. [] Lymphatic: Denies swollen glands. [] Psychiatric: Denies depression or anxiety. [] Heart Score: Risk Factors: Risk Factors: DM, Current or recent (<one month) smoker, HTN, HLP, family history of CAD, obesity. Risk Scores: Score 0 - 3: 2.5% MACE over next 6 weeks - Discharge Home Score 4 - 6: 20.3% MACE over next 6 weeks - Admit for Clinical Observation Score 7 - 10: 72.7% MACE over next 6 weeks - Early Invasive Strategies Current Medications: Current Medications Medications (Trade) Dose Ordered Sig/Eloisa Start Time Stop Time Status Last Admin Dose Admin Ketorolac Tromethamine (Toradol 15mg Vial) 15 mg 1X ONCE 08/11/20 22:30 08/11/20 22:31 Allergies: Allergies: Allergies Coded Allergies Type Severity Reaction Last Updated Verified Iodinated Contrast Media Allergy Intermediate FLU SYMPTOMS, NASAL CONGESTION 07/18/19 Yes Tetracyclines Allergy Intermediate 08/04/16 Yes morphine Allergy Intermediate 08/04/16 Yes nitrofurantoin Allergy Intermediate 08/04/16 Yes tetrabenazine Allergy Intermediate 03/29/19 Yes Physical Exam: PE: Constitutional: Well developed, well nourished, no acute distress, non-toxic appearance. [] HENT: Normocephalic, atraumatic, bilateral external ears normal, no trismus nose normal. [] Eyes: PERRLA, EOMI, conjunctiva normal, no discharge. [] Neck: Normal range of motion, no tenderness, supple, no stridor. [] No meningeal signs Cardiovascular:Heart rate regular rhythm, peripheral pulses are intact Lungs & Thorax: Bilateral breath sounds clear no respiratory distress Abdomen:, soft, no tenderness, no masses, no pulsatile masses. [] Skin: Warm, dry, no erythema, no rash. [] Back: No tenderness, no CVA tenderness. [] Extremities: No tenderness, no cyanosis, no clubbing, ROM intact, no edema. [] Neurologic: Alert and oriented X 3, normal motor function, normal sensory function, no focal deficits noted. [] Psychologic: Affect normal, judgement normal, mood normal. [] Current Patient Data: Labs: Laboratory Tests Test 08/11/20 22:00 08/11/20 22:30 White Blood Count 3.5 x10^3/uL Red Blood Count 3.21 x10^6/uL Hemoglobin 10.1 g/dL Hematocrit 30.6 % Mean Corpuscular Volume 95 fL Mean Corpuscular Hemoglobin 31 pg Mean Corpuscular Hemoglobin Concent 33 g/dL Red Cell Distribution Width 13.1 % Platelet Count 150 x10^3/uL Neutrophils (%) (Auto) 67 % Lymphocytes (%) (Auto) 17 % Monocytes (%) (Auto) 13 % Eosinophils (%) (Auto) 2 % Basophils (%) (Auto) 1 % Neutrophils # (Auto) 2.3 x10^3/uL Lymphocytes # (Auto) 0.6 x10^3/uL Monocytes # (Auto) 0.4 x10^3/uL Eosinophils # (Auto) 0.1 x10^3/uL Basophils # (Auto) 0.0 x10^3/uL Sodium Level 139 mmol/L Potassium Level 4.4 mmol/L Chloride Level 103 mmol/L Carbon Dioxide Level 27 mmol/L Anion Gap 9 Blood Urea Nitrogen 30 mg/dL Creatinine 1.7 mg/dL Estimated GFR (Cockcroft-Gault) 29.1 BUN/Creatinine Ratio 18 Glucose Level 81 mg/dL Lactic Acid Level 0.7 mmol/L Calcium Level 9.1 mg/dL Total Bilirubin 0.2 mg/dL Aspartate Amino Transf (AST/SGOT) 20 U/L Alanine Aminotransferase (ALT/SGPT) 16 U/L Alkaline Phosphatase 77 U/L Creatine Kinase 27 U/L Total Protein 7.3 g/dL Albumin 3.4 g/dL Albumin/Globulin Ratio 0.9 Urine Collection Type Unknown Urine Color Yellow Urine Clarity Clear Urine pH 6.5 Urine Specific [place] 1.010 Urine Protein Negative mg/dL Urine Glucose (UA) Negative mg/dL Urine Ketones (Stick) Negative mg/dL Urine Blood Negative Urine Nitrite Negative Urine Bilirubin Negative Urine Urobilinogen Dipstick 0.2 mg/dL Urine Leukocyte Esterase Small Urine RBC Occ /HPF Urine WBC 5-10 /HPF Urine Squamous Epithelial Cells Few /LPF Urine Bacteria Few /HPF Urine Hyaline Casts Occasional /HPF Urine Mucus Slight /LPF Current Medications Medications (Trade) Dose Ordered Sig/Eloisa Route PRN Reason Start Time Stop Time Status Last Admin Dose Admin Ketorolac Tromethamine (Toradol 15mg Vial) 15 mg 1X ONCE IVP 08/11/20 22:30 08/11/20 22:31 DC 08/11/20 22:20 Vital Signs: Vital Signs Date Time Temp Pulse Resp B/P (MAP) Pulse Ox O2 Delivery O2 Flow Rate FiO2 08/11/20 19:45 98.9 74 18 142/57 (85) 96 Room Air 98.9 EKG: EKG: [] Radiology/Procedures: Radiology/Procedures: [][facility] [address] [place], [place] [id number] IMAGING REPORT Signed PATIENT: REESE ERICKSON ACCOUNT: [id number] : 1940 LOCATION: ER AGE: 79 SEX: F EXAM STATUS: REG ER ORD. PHYSICIAN: JOIE ESPOSITO MD REASON: COVID PROCEDURE: PORTABLE CHEST 1V Exam: Chest one view INDICATION: Covid, shortness of breath TECHNIQUE: Frontal view of the chest Comparisons: 08/11/2020 FINDINGS: Pacer with leads terminating the right atrium and ventricle. Heart is mildly enlarged. Pulmonary vessels are within normal limits. The lung and pleural spaces are clear. IMPRESSION: No acute pulmonary process. Electronically signed by: Regina Watts MD (08/11/2020 10:28 PM) [id number] DICTATED and SIGNED BY: REGINA WATTS MD DATE: 08/11/202227 Course & Med Decision Making: Course & Med Decision Making Pertinent Labs and Imaging studies reviewed. (See chart for details) [] 79-year-old female presents with symptoms consistent with COVID-19. Patient has a known household contact that has COVID-19. The patient is in no respiratory distress. Patient's chest x-ray is negative. Patient's laboratory assessment is at baseline. On reassessment patient feels better and is resting comfortably. At this point I do not feel that she meets criteria for admission to the hospital. Discussed with patient return precautions. Patient vocalized understanding will return if symptoms gets worse. Dragon Disclaimer: [employer] Disclaimer: This electronic medical record was generated, in whole or in part, using a voice recognition dictation system. Departure Departure Impression: Primary Impression: Fever Additional Impression: Suspected COVID-19 virus infection Disposition: 01 DC HOME SELF CARE/HOMELESS Condition: STABLE Referrals: NAIF GONZALES MD (PCP) 2-3 DAYS Patient Instructions: Viral Syndrome Additional Instructions: EMERGENCY DEPARTMENT GENERAL DISCHARGE INSTRUCTIONS THANK YOU for coming to [facility] Emergency Department (ED) today and trusting us with your care. We trust that you had a positive experience in our Emergency Department. If you wish to speak to the department Management you can contact the academic department chair at . YOUR FOLLOW UP INSTRUCTIONS ARE FOLLOWS: Do you have a private doctor? If you do not have a private doctor, please ask for a resource list of physicians or clinics that may be able to assist you with follow up care. The Emergency Physician has interpreted your x-rays. The X-ray specialist will also review them. If there is a change in the findings you will be notified in 48 hours when at all possible. A lab test or lab culture may have been done, your results will be reviewed and you will be notified if you need a change in treatment. ADDITIONAL INSTRUCTIONS AND INFORMATION Your care today has been supervised by a physician who is specially trained in emergency care. Many problems require more than one evaluation for a complete diagnosis and treatment. We recommend that you schedule your follow up appointment as recommended to ensure complete treatment of your illness or injury. If you are unable to obtain follow up care and continue to have a problem, or if your condition worsens we recommend that you return to the ED. We are not able to safely determine your condition over the phone nor are we able to give sound medical advice over the phone. For these safety reasons, if you call for medical advice we will ask you to come to the ED for further evaluation If you have any questions regarding these discharge instructions please call the ED at . SAFETY INFORMATION In the interest of safety, wellness, and injury prevention; we encourage you to wear your seatbelt, if you smoke; quit smoking, and we encourage your family to use protective helmet for bicycling and other sporting events that present an increased risk for head injury. IF YOUR SYMPTOMS WORSEN OR NEW SYMPTOMS DEVELOP, OR YOU HAVE CONCERNS ABOUT YOUR CONDITION; OR IF YOUR CONDITION WORSENS WHILE YOU ARE WAITING FOR YOUR FOLLOW UP APPOINTMENT; EITHER CONTACT YOUR PRIMARY CARE DOCTOR, THE PHYSICIAN WHOSE NAME AND NUMBER YOU WERE GIVEN, OR RETURN TO THE ED IMMEDIATELY. You have been tested for or diagnosed with COVID-19. It is an infection caused by a new type of coronavirus. COVID-19 will cause cold-like or mild flu symptoms in most. It can cause more severe symptoms like problems breathing in some. There is no treatment for COVID-19. The body will clear the infection over time. Self-care will help to ease discomfort. Steps to Take: Self-Care Rest as needed. Healthy habits may help you feel better. Steps include: Choose healthy foods including fruits and vegetables. Drink water throughout the day. Get plenty of sleep each night. If you smoke, try to quit. It may ease breathing. Avoid alcohol. Keep Others Healthy The virus can spread to others. Droplets are released every time you sneeze or cough. The droplets can get into the mouth, nose, or eyes of people near you and lead to infection. To lower the chances of spreading COVID-19 to others: Stay at home until your doctor has said it is safe to leave. If you tested positive this will mean staying isolated until both of the following are true: At least 7 days have passed since the start of illness. You are free of fever for at least 72 hours without the use of medicine. During this time: - Avoid public areas, events, or transportation. Do not return to work or school until your doctor has said it is safe to do so. - Call ahead if you need to go to a medical center. Let them know you may have COVID-19. It will help them guide you where to go. They may also ask you to wear a facemask when you come to the office. - If you call for emergency medical services, let them know you may have COVID- 19. While at home: - Try to avoid close contact with others. Stay about 6 feet away. - If possible, spend most of your time in a separate room from others. - Use a face mask if you will be in close contact with others such as sharing a room or vehicle. - Have someone wipe down common surfaces in the home. Use household senior product designer every day on areas like doorknobs, counters, or sinks. - Cough or sneeze into a tissue. Throw the tissue away right after use. If a tissue is not available, cough or sneeze into your elbow. - Wash your hands often. Wash them after sneezing or coughing. Use soap and water and wash for at least 20 seconds. Alcohol based hand mud cleaner operator can be used if soap and water is not available. - Do not prepare food for others. Avoid sharing personal items like forks, spoons, or toothbrushes. - Avoid close contact with pets while you are sick. There is no evidence of the virus passing to pets. This is a safety step until more is known about this virus. Isolation can be frustrating. Social interaction can help. Keep in touch with friends and family through phone and tech options. You can still interact with others in your home, just keep a safe distance of about 6 feet. Follow-up: Your doctors office will check in with you to see if there are any changes in your health. You may be asked to keep track of symptoms to share with them. They will also let you know when you are clear to be in public again. Problems to Look Out For: Contact your doctor if your recovery is not going as you expect. Get emergency care if you have problems such as: - Trouble breathing - Nonstop chest pain or pressure - Changes in awareness, confusion, or problems waking - Lips or face have bluish color - Worsening of symptoms If you think you have an emergency, call for emergency medical services right away. As taken from [facility] Buy a pulse oximeter for home and return if oxygen level drops below 94%. Return if concerns or worsening symptoms. COVID-19 Assessment: COVID-19 Patient Risks: Age 65 or older: Yes Sign of co-morbidity: Yes Exp to person + for COVID: Yes Fever: Yes PPE Use: Full PPE with N95 mask or PAPR: Yes JOIE ESPOSITO MD Aug 11, 2020 22:15
[2020-08-11 22:22] LABS: BASO % 1 % (0-3); EOS # 0.1 x10^3/uL (0.0-0.7); EOS % 2 % (0-3); HEMATOCRIT 30.6 % (36.0-47.0); HEMOGLOBIN 10.1 g/dL (12.0-15.5); LYMPH # 0.6 x10^3/uL (1.0-4.8); LYMPH % 17 % (24-48); MEAN CORPUSCULAR HEMOGLOBIN 31 pg (25-35); MEAN CORPUSCULAR HGB CONC 33 g/dL (31-37); MEAN CORPUSCULAR VOLUME 95 fL (79-100); MONO # 0.4 x10^3/uL (0.0-1.1); MONO % 13 % (0-9); NEUT # 2.3 x10^3/uL (1.8-7.7); NEUT % 67 % (31-73); PLATELET COUNT 150 x10^3/uL (140-400); RED BLOOD COUNT 3.21 x10^6/uL (3.50-5.40); RED CELL DISTRIBUTION WIDTH 13.1 % (11.5-14.5); WHITE BLOOD COUNT 3.5 x10^3/uL (4.0-11.0)
[2020-08-11 22:30] LABS: CALCIUM 9.1 mg/dL (8.5-10.1); CREATININE 1.7 mg/dL (0.6-1.0); GFR 29.1; POTASSIUM 4.4 mmol/L (3.5-5.1)
[2020-08-11] MEDS ORDERED: KETOROLAC 15 MG/ML VIAL. IVP ONE (22:30)
--- NOTE | 2020-08-11 22:31 | RAD ---
Exam: Chest one view INDICATION: Covid, shortness of breath TECHNIQUE: Frontal view of the chest Comparisons: 08/11/2020 FINDINGS: Pacer with leads terminating the right atrium and ventricle. Heart is mildly enlarged. Pulmonary vessels are within normal limits. The lung and pleural spaces are clear. IMPRESSION: No acute pulmonary process. Electronically signed by: Regina Goodman MD (08/11/2020 10:28 PM) [id number]
[2020-08-11 22:36] LABS: ALBUMIN 3.4 g/dL (3.4-5.0); ALBUMIN/GLOBULIN RATIO 0.9 (1.0-1.7); TOTAL BILIRUBIN 0.2 mg/dL (0.2-1.0); TOTAL PROTEIN 7.3 g/dL (6.4-8.2)
[2020-08-11 22:52] LABS: BILIRUBIN,URINE NEGATIVE (NEG); CLARITY,URINE CLEAR; COLOR,URINE YELLOW; NITRITE,URINE NEGATIVE (NEG); PH,URINE 6.5 (<5.0-8.0); PROTEIN,URINE NEGATIVE (NEG-TRACE); UROBILINOGEN,URINE 0.2 mg/dL (0.2 mg/dL)
[2020-08-11 23:07] LABS: BACTERIA,URINE FEW /HPF (0-FEW); HYALINE CASTS, URINE OCCASIONAL /HPF; RBC,URINE OCC /HPF (0-2)
[2020-08-12 00:17] VITALS: BP 128/60
--- NOTE | 2020-08-14 17:19 | NUR ---
IP: Informed pt of positive COVID results and need to quarantine for 10-14 days pending symptoms. Pt verbalized understanding.
== END 2020-08-12 00:46 | disposition home or self-care (01) ==
LOC: ER 17:59
DX: U07.1 COVID-19 (principal); R50.9 Fever, unspecified; R06.02 Shortness of breath; R05 Cough; F41.9 Anxiety disorder, unspecified; J44.9 Chronic obstructive pulmonary disease, unspecified; F32.9 Major depressive disorder, single episode, unspecified; E11.9 Type 2 diabetes mellitus without complications; E78.00 Pure hypercholesterolemia, unspecified; I10 Essential (primary) hypertension; E03.9 Hypothyroidism, unspecified; Z90.710 Acquired absence of both cervix and uterus; Z90.89 Acquired absence of other organs; Z90.49 Acquired absence of other specified parts of digestive tract; Z95.0 Presence of cardiac pacemaker; Z98.890 Other specified postprocedural states; Z91.040 Latex allergy status; Z88.1 Allergy status to other antibiotic agents; Z88.6 Allergy status to analgesic agent; Z88.8 Allergy status to other drugs, medicaments and biological substances
CPT/HCPCS: 36415; 71045; 80053; 81001; 82550; 83605; 85025; 87040; 87086; 96374; 99284; C9803; J1885; U0003

== ENCOUNTER → 2020-10-10 | Outpatient (CLI) | payer MEDICARE, BC ==
--- NOTE | 2020-10-10 16:09 | KCIC ---
EXAM: Right foot, 3 views. HISTORY: Fifth digit pain. COMPARISON: None. FINDINGS: 3 views of the right foot are obtained. There is a minimally displaced fracture of the dist al aspect of the fifth proximal phalanx. There is mild first metatarsal phalangeal joint spurring. Th ere is a small plantar spur. There is enthesopathy at Achilles tendon insertion. IMPRESSION: Minimally displaced fracture of the distal aspect of the fifth proximal phalanx. Electronically signed by: Binta Dasilva MD (10/10/2020 4:07 PM) [id number]
== END ==
LOC: KCIC 15:03
PROVIDERS: ATTEND Family Medicine
DX: S92.911A Unspecified fracture of right toe(s), initial encounter for closed fracture (principal); M76.61 Achilles tendinitis, right leg; M77.31 Calcaneal spur, right foot; X58.XXXA Exposure to other specified factors, initial encounter; Y93.89 Activity, other specified; Y92.89 Other specified places as the place of occurrence of the external cause; Y99.8 Other external cause status
CPT/HCPCS: 73630

== ENCOUNTER → 2021-04-15 | Outpatient (CLI) | payer MEDICARE, BC ==
[2021-02-14 16:15] VITALS: BP 143/50
[~2021-04-15] MED LIST changes: +FOLI0.4T5 PO; -ISOS60TA2 PO; +ISOS60TA55 PO; -LISI-334 PO; +LISI20TA18 PO; +LOPE-101 PO; +OMEG1CAP27 PO; +PRIM50TA24 PO; +SERT-268 PO; -SERT100T8 PO
--- NOTE | 2021-05-06 09:30 | CARD ---
[facility] TRANSTHORACIC ECHOCARDIOGRAM Echocardiography Laboratory [address] [place] [address] [email or web address] ACCESSION# : [id number] MR # : [id number] STATUS : OUT-PATIENT PATIENT : REESE ERICKSON PATIENT LOCATION : ORDERING PHYSICIAN : CATHLEEN ZENDEJAS, GENDER : F ATTENDING PHYSICIAN : CATHLEEN ZENDEJAS, DATE OF STUDY : 04/15/2021 INFORMATION TECHNOLOGY SECURITY MANAGER : Jean Vick RDCS DATE OF : 1940 HEIGHT : 5 ft 1 in WEIGHT : 247 lbs BSA : 2.07 m2 BP : 146 / 66 mmHg EXAM: Two-dimensional and M-mode echocardiogram with Doppler and color Doppler. Other Information Quality : Fair HR: 66bpm Rhythm :NSR Technically limited study due to body habitus and smoking. INDICATION Pericardial Effusion CAD Surgery/Intervention ICD/Pacemaker: RISK FACTORS Hypertension Obesity Hyperlipidemia 2D DIMENSIONS Left Atrium(2D) 3.7 (1.6~4.0cm) IVSd 1.0 (0.7~1.1cm) Aortic Root(2D) 2.4 (2.0~3.7cm) LVDd 5.0 (3.9~5.9cm) LVOT Diameter 1.9 (1.8~2.4cm) PWd 1.0 (0.7~1.1cm) LVDs 3.3 (2.5~4.0cm) FS (%) 34.8 % SV 74.8 ml LVEF(%) 63.7 (>50%) Aortic Valve AoV Peak Maxwell. 249.1cm/s AoV VTI 63.9cm AO Peak GR. 24.8mmHg LVOT Peak Maxwell. 90.5cm/s AO Mean GR. 16mmHg IRISH (VMAX) 1.04cm2 Mitral Valve MV E Velocity 88.0cm/s MV E Peak Gr. 7mmHg MV DECEL TIME 299ms MV A Velocity 111.0cm/s MV E Mean Gr. 3mmHg E/A Ratio 0.8 Pulmonary Valve PV Peak Velocity 114.3cm/s Tricuspid Valve TR P. Velocity 287cm/s TR Peak Gr. 33mmHg Pulmonary Vein S1 Velocity 60.2cm/s D2 Velocity 43.0cm/s LEFT VENTRICLE The left ventricle is normal size. There is normal left ventricular wall thickness. The left ventricular systolic function is normal. The ejection fraction is 60-65%. There is normal LV segmental wall motion. Transmitral Doppler flow pattern is Grade I-abnormal relaxation pattern. No left ventricle thrombus noted on this study. There is no ventricular septal defect visualized. There is no left ventricular aneurysm. There is no mass noted in the left ventricle. RIGHT VENTRICLE The right ventricle is normal size. There is normal right ventricular wall thickness. The right ventricular systolic function is normal. Pacemaker wire noted in RV ATRIA The left atrium is mildly dilated. The right atrium size is normal. The interatrial septum is intact with no evidence for an atrial septal defect or patent foramen ovale as noted on 2-D or Doppler imaging. AORTIC VALVE The aortic valve is mildly thickened. Not well seen Doppler and Color Flow revealed mild aortic regurgitation. There is trace valvular aortic stenosis. There is no aortic valvular vegetation. MITRAL VALVE The mitral valve is normal in structure and function. There is no evidence of mitral valve prolapse. There is no mitral valve stenosis. Doppler and Color-flow revealed trace to mild mitral regurgitation. TRICUSPID VALVE TV not well seen. Doppler and Color Flow revealed trace tricuspid regurgitation. There is no tricuspid valve prolapse or vegetation. There is no tricuspid valve stenosis. PULMONIC VALVE PV not well seen Doppler and Color Flow revealed no pulmonic valvular regurgitation. There is no pulmonic valvular stenosis. GREAT VESSELS The aortic root is normal in size. The ascending aorta is normal in size. PA not well seen The IVC is normal in size and collapses >50% with inspiration. PATIENT : REESE ERICKSON MR # : [id number] DATE OF STUDY : 04/15/2021 2 of 2 PERICARDIAL EFFUSION There is no evidence of significant pericardial effusion. Critical Notification Critical Value: No CONCLUSION 1. The left ventricular systolic function is normal. 2. The ejection fraction is 60-65%. 3. There is normal LV segmental wall motion. 4. Transmitral Doppler flow pattern is Grade I-abnormal relaxation pattern. 5. Pacemaker wire noted in RV/RA. 6. Mild aortic regurgitation. 7. Trace to mild mitral regurgitation. 8. Trace tricuspid regurgitation. 9. There is no evidence of significant pericardial effusion. Signed by: Deion Soto, Electronically Approved: 04/16/2021 10:22:14 YULISA
== END ==
LOC: ECHO 14:52
PROVIDERS: ATTEND Internal Medicine Cardiovascular Disease
DX: I08.0 Rheumatic disorders of both mitral and aortic valves (principal); I25.10 Atherosclerotic heart disease of native coronary artery without angina pectoris
CPT/HCPCS: 93307

== ENCOUNTER 2021-10-26 10:20 | Inpatient (IN) | payer MEDICARE, BC ==
[~2021-10-26] VITALS: Ht 154.9 cm; Wt 113.6 kg
[2021-10-26] MEDS ORDERED: ASPIRIN CHEWABLE 81 MG TABLET. PO ONE (10:30)
[2021-10-26 10:53] LABS: BASO # 0.1 x10^3/uL (0.0-0.2); BASO % 1 % (0-3); EOS # 0.2 x10^3/uL (0.0-0.7); EOS % 5 % (0-3); HEMATOCRIT 33.5 % (36.0-47.0); HEMOGLOBIN 10.8 g/dL (12.0-15.5); LYMPH # 1.5 x10^3/uL (1.0-4.8); LYMPH % 37 % (24-48); MEAN CORPUSCULAR HEMOGLOBIN 31 pg (25-35); MEAN CORPUSCULAR HGB CONC 32 g/dL (31-37); MEAN CORPUSCULAR VOLUME 97 fL (79-100); MONO # 0.4 x10^3/uL (0.0-1.1); MONO % 9 % (0-9); NEUT % 48 % (31-73); PLATELET COUNT 200 x10^3/uL (140-400); RED BLOOD COUNT 3.47 x10^6/uL (3.50-5.40); RED CELL DISTRIBUTION WIDTH 13.2 % (11.5-14.5); WHITE BLOOD COUNT 4.1 x10^3/uL (4.0-11.0)
[2021-10-26 11:01] LABS: PROTHROMBIN TIME PATIENT 13.1 SEC (11.7-14.0)
[2021-10-26 11:03] LABS: CALCIUM 8.8 mg/dL (8.5-10.1); CREATININE 1.6 mg/dL (0.6-1.0); GFR 31.1; POTASSIUM 4.2 mmol/L (3.5-5.1)
[2021-10-26 11:05] LABS: D-DIMER 0.78 ug/mlFEU (0.00-0.50)
--- NOTE | 2021-10-26 11:05 | RAD ---
XR CHEST 1V History: Chest pain Comparison: 02/12/2021 Technique: AP radiograph of the chest. Findings: Left chest dual-chamber pacemaker. The lungs are adequately and symmetrically inflated. No airspace c onsolidation, pleural effusion or pneumothorax. The cardiomediastinal silhouette and pulmonary vascul ature are within normal limits. No acute osseous abnormality. Soft tissues are unremarkable. Impression: 1. No acute cardiopulmonary process. Electronically signed by: Luis A Quezada MD (10/26/2021 11:02 AM) [facility]
[2021-10-26 11:11] LABS: ALBUMIN 3.5 g/dL (3.4-5.0); ALBUMIN/GLOBULIN RATIO 0.8 (1.0-1.7); MAGNESIUM 2.1 mg/dL (1.8-2.4); TOTAL BILIRUBIN 0.2 mg/dL (0.2-1.0); TOTAL PROTEIN 7.7 g/dL (6.4-8.2)
--- NOTE | 2021-10-26 11:24 | PHYS DOC ---
Past Medical History Past Medical History: Anemia, Anxiety, Bronchitis, CAD, COPD, Depression, Diabetes-Type II, High Cholesterol, Hypertension, Hypothyroid, [place], Renal Disease, TIA, Other Additional Past Medical Histor: COVID-AUG 2020,NEUROPATHY Past Surgical History: Angioplasty, Appendectomy, Cholecystectomy, Hyster ectomy, Pacemaker, Tonsillectomy Additional Past Surgical Histo: 6 cardiac stents, Smoking Status: Never Smoker Alcohol Use: None Drug Use: None General Adult EDM: Chief Complaint: CHEST PAIN HPI: HPI: Patient is a 80-year-old female that presents today with substernal chest pain. Patient states the pain started about 3 days ago she said it was right underneath her breastbone and she said it is her in the stabbing type sensation for the last 3 days. She states the pain is worse when she takes a deep breath or moves side to side with her arms. She has no associated shortness of air fever diaphoresis or nausea and vomiting with the pain. 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 Patient states that she has been taking her medications as prescribed. Patient denies cough as well. While reviewing patient's past medical history it was noted that she had a cardiac cath done in February 2021, and according to the son patient saw Dr. Jack in August 2021. Review of Systems: Review of Systems: Constitutional: Denies fever or chills. [] Eyes: Denies change in visual acuity. [] HENT: Denies nasal congestion or sore throat. [] Respiratory: Denies cough or shortness of breath. [] Cardiovascular: Substernal chest pain GI: Chronic nausea denies abdominal pain, vomiting, bloody stools or diarrhea. [] : Denies dysuria. [] Musculoskeletal: Denies back pain or joint pain. [] Integument: Denies rash. [] Neurologic: Denies headache, focal weakness or sensory changes. [] Endocrine: Denies polyuria or polydipsia. [] Lymphatic: Denies swollen glands. [] Psychiatric: Denies depression or anxiety. [] Heart Score: C/O Chest Pain: Yes HEART Score for Chest Pain: HEART Score for Chest Pain Response (Comments) Value History Moderately Suspicious 1 ECG Nonspecific Repolarizatio 1 Age > 65 2 Risk Factors >3 Risk Factors or Hx CAD 2 Troponin < Normal Limit 0 Total 6 Risk Factors: Risk Factors: DM, Current or recent (<one month) smoker, HTN, HLP, family history of CAD, obesity. Risk Scores: Score 0 - 3: 2.5% MACE over next 6 weeks - Discharge Home Score 4 - 6: 20.3% MACE over next 6 weeks - Admit for Clinical Observation Score 7 - 10: 72.7% MACE over next 6 weeks - Early Invasive Strategies Current Medications: Current Medications Medications (Trade) Dose Ordered Sig/Eloisa Start Time Stop Time Status Last Admin Dose Admin Aspirin (Aspirin Chewable) 324 mg 1X ONCE 10/26/21 10:30 10/26/21 10:34 DC Allergies: Allergies: Allergies Coded Allergies Type Severity Reaction Last Updated Verified Iodinated Contrast Media Allergy Intermediate FLU SYMPTOMS, NASAL CONGESTION 07/18/19 Yes Tetracyclines Allergy Intermediate 08/04/16 Yes codeine Allergy Intermediate 02/13/21 Yes morphine Allergy Intermediate 08/04/16 Yes nitrofurantoin Allergy Intermediate 08/04/16 Yes tetrabenazine Allergy Intermediate 03/29/19 Yes Physical Exam: PE: Constitutional: Well developed, well nourished, no acute distress, non-toxic appearance. [] HENT: Normocephalic, atraumatic, bilateral external ears normal, oropharynx moist, no oral exudates, nose normal. [] Eyes: PERRLA, EOMI, conjunctiva normal, no discharge. [] Neck: Normal range of motion, no tenderness, supple, no stridor. [] Cardiovascular: Monitor shows patient is 100% paced. No jugular vein distention noted no murmur. Lungs & Thorax: Bilateral breath sounds clear to auscultation [] Abdomen: Large round obese abdomen no tenderness noted with palpation, patient states she feels bloated. Bowel sounds hyperactive Skin: Pale, warm, dry. Back: No tenderness, no CVA tenderness. [] Extremities: No tenderness, no cyanosis, no clubbing, ROM intact, 1+ edema bilaterally, 1+ pedal and peripheral pulses. Cap refill is less than 2 seconds Neurologic: Alert and oriented X 3, normal motor function, normal sensory function, no focal deficits noted. [] Psychologic: Affect flat affect and no eye contact while assessment was going on., judgement normal, mood normal. [] Current Patient Data: Labs: Laboratory Tests Test 1/22/22 10:43 White Blood Count 4.1 x10^3/uL (4.0-11.0) Red Blood Count 3.47 x10^6/uL (3.50-5.40) L Hemoglobin 10.8 g/dL (12.0-15.5) L Hematocrit 33.5 % (36.0-47.0) L Mean Corpuscular Volume 97 fL (79-100) Mean Corpuscular Hemoglobin 31 pg (25-35) Mean Corpuscular Hemoglobin Concent 32 g/dL (31-37) Red Cell Distribution Width 13.2 % (11.5-14.5) Platelet Count 200 x10^3/uL (140-400) Neutrophils (%) (Auto) 48 % (31-73) Lymphocytes (%) (Auto) 37 % (24-48) Monocytes (%) (Auto) 9 % (0-9) Eosinophils (%) (Auto) 5 % (0-3) H Basophils (%) (Auto) 1 % (0-3) Neutrophils # (Auto) 2.0 x10^3/uL (1.8-7.7) Lymphocytes # (Auto) 1.5 x10^3/uL (1.0-4.8) Monocytes # (Auto) 0.4 x10^3/uL (0.0-1.1) Eosinophils # (Auto) 0.2 x10^3/uL (0.0-0.7) Basophils # (Auto) 0.1 x10^3/uL (0.0-0.2) Prothrombin Time 13.1 SEC (11.7-14.0) Prothrombin Time INR 1.0 (0.8-1.1) Activated Partial Thromboplast Time 26 SEC (24-38) D-Dimer (Lyndsay) 0.78 ug/mlFEU (0.00-0.50) H Sodium Level 143 mmol/L (136-145) Potassium Level 4.2 mmol/L (3.5-5.1) Chloride Level 103 mmol/L (98-107) Carbon Dioxide Level 28 mmol/L (21-32) Anion Gap 12 (6-14) Blood Urea Nitrogen 32 mg/dL (7-20) H Creatinine 1.6 mg/dL (0.6-1.0) H Estimated GFR (Cockcroft-Gault) 31.1 BUN/Creatinine Ratio 20 (6-20) Glucose Level 133 mg/dL (70-99) H Calcium Level 8.8 mg/dL (8.5-10.1) Magnesium Level 2.1 mg/dL (1.8-2.4) Total Bilirubin 0.2 mg/dL (0.2-1.0) Aspartate Amino Transferase (AST) 14 U/L (15-37) L Alanine Aminotransferase (ALT) 18 U/L (14-59) Alkaline Phosphatase 85 U/L (46-116) Troponin I High Sensitivity 13 ng/L (4-50) Total Protein 7.7 g/dL (6.4-8.2) Albumin 3.5 g/dL (3.4-5.0) Albumin/Globulin Ratio 0.8 (1.0-1.7) L Laboratory Tests 10/26/21 10:43 Laboratory Tests 10/26/21 10:43 Vital Signs: Vital Signs Date Time Temp Pulse Resp B/P (MAP) Pulse Ox O2 Delivery O2 Flow Rate FiO2 10/26/21 19:00 97.3 59 20 158/48 (84) 94 Room Air 97.3 10/26/21 15:15 Room Air 10/26/21 15:03 98.0 60 20 145/60 (88) 100 Room Air 98.0 10/26/21 13:38 61 181/67 (105) 99 Room Air 10/26/21 12:38 60 180/77 (111) 99 Room Air 10/26/21 11:38 60 176/73 (107) 99 Room Air 10/26/21 10:38 63 203/81 (121) 99 Room Air 10/26/21 10:21 98.1 64 21 237/97 (143) 100 Room Air 98.1 Vital Signs Date Time Temp Pulse Resp B/P (MAP) Pulse Ox O2 Delivery O2 Flow Rate FiO2 10/26/21 10:21 98.1 64 21 237/97 (143) 100 Room Air 98.1 EKG: EKG: EKG done at [address] Dexter at 1130 sinus rhythm with a left bundle branch block at a rate of 62 OR interval of 196 ms with a QTC of 439 ms no STEMI [] Radiology/Procedures: Radiology/Procedures: REASON: chest pain PROCEDURE: PORTABLE CHEST 1V XR CHEST 1V History: Chest pain Comparison: 02/12/2021 Technique: AP radiograph of the chest. Findings: Left chest dual-chamber pacemaker. The lungs are adequately and symmetrically inflated. No airspace consolidation, pleural effusion or pneumothorax. The cardiomediastinal silhouette and pulmonary vasculature are within normal limits. No acute osseous abnormality. Soft tissues are unremarkable. Impression: 1. No acute cardiopulmonary process. Electronically signed by: Luis A Quezada MD (10/26/2021 11:02 AM) [facility] [] Course & Med Decision Making: Course & Med Decision Making Pertinent Labs and Imaging studies reviewed. (See chart for details) [1215 reviewed radiological and laboratory results with Dr. Rudolph, with the patient's past medical history of coronary artery disease I feel it is safe if the patient is admitted for further evaluation of her chest pain. He is agreeable to admission. I did consult Dr. Jack for cardiology input on her care. Patient was informed of the decision for admission and she is agreeable to the plan of care. Dragon Disclaimer: Dragon Disclaimer: This electronic medical record was generated, in whole or in part, using a voice recognition dictation system. Departure Departure Impression: Primary Impression: Chest pain Qualified Codes: R07.9 - Chest pain, unspecified Disposition: ADMITTED INPATIENT Admitting Physician: BECKY Condition: STABLE Referrals: NAIF GONZALES MD (PCP) HENOK MCCULLOUGH APRN Oct 26, 2021 11:24
--- NOTE | 2021-10-26 13:46 | PDOC1 ---
History and Physical Date of Admission Date of Admission DATE: 10/26/21 TIME: 13:46 Identification/Chief Complaint Chief Complaint Chest pain Source Source: Patient History of Present Illness History of Present Illness Ms. Mott is a 80-year-old female with PMH CAD status post PCI with VANITA, HTN, HLD, DM2, anxiety, prior TIA SSS status post dual-chamber pacemaker who comes to the ED today at the behest of her family for progressive chest pain. Pain began 3 days ago stabbing sternal area sometimes radiates to her back with some associated nausea. She also has associated diarrhea. Repositioning and activity do not affect it. She notes that sometimes improves with eating and drinking. On further review she notes that diarrhea has been ongoing for several months and she was instructed to take Imodium A-D and feels that it occasionally helps. No other significant medication changes. She takes Tums occasionally for heartburn. WBC 4.1, Hb 10.8, platelets 200 3, K4.2, BUN 32, CR 1.6, glucose 133, LFTs within normal laboratory limits, high-sensitivity troponin is 13, NT proBNP is 13, INR 1, D-dimer minimally elevated at 0.78 chest radiograph with no acute abnormality left-sided dual-chamber pacemaker noted Admitted for further care. Past Medical History Cardiovascular: CAD, HTN, GA, Hyperlipidemia, Other Pulmonary: COPD CENTRAL NERVOUS SYSTEM: Periperal neuropathy GI: GERD Heme/Onc: No pertinent hx Hepatobiliary: No pertinent hx Psych: No pertinent hx Musculoskeletal: Osteoarthritis, Other Rheumatologic: No pertinent hx Infectious disease: No pertinent hx Renal/: No pertinent hx Endocrine: Diabetes, Hypothyroidism Past Surgical History Past Surgical History: Pacemaker, Appendectomy, Cholecystectomy, Tonsillectomy, Hysterectomy, Other Family History Family History: Coronary Artery Disease Social History Smoke: No ALCOHOL: none Drugs: None Current Medications Current Medications Current Medications Aspirin (Aspirin Chewable) 324 mg 1X ONCE PO Last administered on 10/26/21at 11:32; Start 10/26/21 at 10:30; Stop 10/26/21 at 10:34; Status DC Active Scripts Active Pantoprazole Sodium (Pantoprazole Sodium) 40 Mg Tablet.dr 40 Mg PO DAILYAC 30 Days Dicyclomine Hcl 10 Mg Capsule 10 Mg PO PRN TID PRN 10 Days Metoprolol Succinate ( Xl ) (Metoprolol Succinate) 100 Mg Tab.er.24h 100 Mg PO DAILY Reported Mysoline (Primidone) 50 Mg Tablet 3 Tab PO QHS 30 Days Imodium A-D (Loperamide HCl) 2 Mg Capsule 2 Mg PO TID PRN PRN Fish Oil 1,000 Mg Softgel ([place]-3 Fatty Acids/Fish Oil) 1 Each Capsule 1,000 Each PO DAILY Folic Acid 0.4 Mg Tablet 0.4 Mg PO DAILY Tramadol Hcl 50 Mg Tablet 50 Mg PO DAILY PRN Dyazide 37.5-25 Capsule (Triamterene/Hydrochlorothiazid) 1 Each Capsule 1 Cap PO DAILY Tessalon Perle (Benzonatate) 100 Mg Capsule 1 Cap PO PRN TID PRN Lopid (Gemfibrozil) 600 Mg Tablet 1 Tab PO BID Actos (Pioglitazone Hcl) 15 Mg Tablet 1 Tab PO DAILY Lisinopril 20 Mg Tablet 1 Tab PO DAILY Gabapentin (Gabapentin) 300 Mg Capsule 300 Mg PO TID Crestor (Rosuvastatin Calcium) 10 Mg Tablet 1 Tab PO QHS Verapamil Er (Verapamil Hcl) 240 Mg Cap24h.pel 240 Mg PO DAILY Levothyroxine Sodium 112 Mcg Tablet 112 Mcg PO DAILYAC Proair Hfa Inhaler (Albuterol Sulfate) 8.5 Gm Hfa.aer.ad 1 Puff INH PRN Q6HRS PRN Trazodone Hcl 50 Mg Tablet 50 Mg PO HS Sertraline Hcl 100 Mg Tablet 100 Mg PO DAILY Combivent Respimat Inhal (Ipratropium/Albuterol Sulfate) 4 Gm Aer.w.adap 2 Inh IH QID Maryanne Allergy (Fexofenadine Hcl) 60 Mg Tablet 60 Mg PO DAILY Nitrostat (Nitroglycerin) 0.4 Mg Tab.subl 1 Tab SL UD Aspir 81 (Aspirin) 81 Mg Tablet.dr 1 Tab PO DAILY Multi Vitamin Daily (Multivitamin) 1 Each Tablet 1 Each PO Iron 18 Mg Tablet 65 Mg PO BID Allergies Allergies: Coded Allergies: Iodinated Contrast Media (Verified Allergy, Intermediate, FLU SYMPTOMS, NASAL CONGESTION, 07/18/19) REACTION WAS 40 YEARS AGO. NO ALLERGY TO BETADINE Tetracyclines (Verified Allergy, Intermediate, 08/04/16) codeine (Verified Allergy, Intermediate, 02/13/21) morphine (Verified Allergy, Intermediate, 08/04/16) nitrofurantoin (Verified Allergy, Intermediate, 08/04/16) tetrabenazine (Verified Allergy, Intermediate, 03/29/19) Physical Exam General: Alert, Oriented X3, Cooperative, mild distress HEENT: Atraumatic, PERRLA, EOMI, Mucous membr. moist/pink Lungs: Clear to auscultation, Normal air movement Heart: S1S2, RRR, no thrills, no rubs, no gallops, no murmurs Abdomen: Normal bowel sounds, Soft, No hepatosplenomegaly, No masses, Other (Epigastric tenderness) Rectal Exam: not examined Extremities: No clubbing, No cyanosis, No edema, Normal pulses, No tenderness/swelling Skin: No rashes, No breakdown, No significant lesion Neuro: Normal gait, Normal speech, Strength at 5/5 X4 ext, Normal tone, Sensation intact, Cranial nerves 3-12 NL, Reflexes 2+ Psych/Mental Status: Mental status NL, Mood NL Vitals Vitals Vital Signs Date Time Temp Pulse Resp B/P (MAP) Pulse Ox O2 Delivery O2 Flow Rate FiO2 10/26/21 10:21 98.1 64 21 237/97 (143) 100 Room Air 98.1 Labs Labs Laboratory Tests Test 10/26/21 10:43 10/26/21 13:00 White Blood Count 4.1 x10^3/uL (4.0-11.0) Red Blood Count 3.47 x10^6/uL (3.50-5.40) Hemoglobin 10.8 g/dL (12.0-15.5) Hematocrit 33.5 % (36.0-47.0) Mean Corpuscular Volume 97 fL (79-100) Mean Corpuscular Hemoglobin 31 pg (25-35) Mean Corpuscular Hemoglobin Concent 32 g/dL (31-37) Red Cell Distribution Width 13.2 % (11.5-14.5) Platelet Count 200 x10^3/uL (140-400) Neutrophils (%) (Auto) 48 % (31-73) Lymphocytes (%) (Auto) 37 % (24-48) Monocytes (%) (Auto) 9 % (0-9) Eosinophils (%) (Auto) 5 % (0-3) Basophils (%) (Auto) 1 % (0-3) Neutrophils # (Auto) 2.0 x10^3/uL (1.8-7.7) Lymphocytes # (Auto) 1.5 x10^3/uL (1.0-4.8) Monocytes # (Auto) 0.4 x10^3/uL (0.0-1.1) Eosinophils # (Auto) 0.2 x10^3/uL (0.0-0.7) Basophils # (Auto) 0.1 x10^3/uL (0.0-0.2) Prothrombin Time 13.1 SEC (11.7-14.0) Prothromb Time International Ratio 1.0 (0.8-1.1) Activated Partial Thromboplast Time 26 SEC (24-38) D-Dimer (Lyndsay) 0.78 ug/mlFEU (0.00-0.50) Sodium Level 143 mmol/L (136-145) Potassium Level 4.2 mmol/L (3.5-5.1) Chloride Level 103 mmol/L (98-107) Carbon Dioxide Level 28 mmol/L (21-32) Anion Gap 12 (6-14) Blood Urea Nitrogen 32 mg/dL (7-20) Creatinine 1.6 mg/dL (0.6-1.0) Estimated GFR (Cockcroft-Gault) 31.1 BUN/Creatinine Ratio 20 (6-20) Glucose Level 133 mg/dL (70-99) Calcium Level 8.8 mg/dL (8.5-10.1) Magnesium Level 2.1 mg/dL (1.8-2.4) Total Bilirubin 0.2 mg/dL (0.2-1.0) Aspartate Amino Transf (AST/SGOT) 14 U/L (15-37) Alanine Aminotransferase (ALT/SGPT) 18 U/L (14-59) Alkaline Phosphatase 85 U/L (46-116) Troponin I High Sensitivity 13 ng/L (4-50) 12 ng/L (4-50) XT-Qoo-X-Type Natriuretic Peptide 262 pg/mL (0-449) Total Protein 7.7 g/dL (6.4-8.2) Albumin 3.5 g/dL (3.4-5.0) Albumin/Globulin Ratio 0.8 (1.0-1.7) Laboratory Tests Test 10/26/21 10:43 10/26/21 13:00 White Blood Count 4.1 x10^3/uL (4.0-11.0) Red Blood Count 3.47 x10^6/uL (3.50-5.40) Hemoglobin 10.8 g/dL (12.0-15.5) Hematocrit 33.5 % (36.0-47.0) Mean Corpuscular Volume 97 fL (79-100) Mean Corpuscular Hemoglobin 31 pg (25-35) Mean Corpuscular Hemoglobin Concent 32 g/dL (31-37) Red Cell Distribution Width 13.2 % (11.5-14.5) Platelet Count 200 x10^3/uL (140-400) Neutrophils (%) (Auto) 48 % (31-73) Lymphocytes (%) (Auto) 37 % (24-48) Monocytes (%) (Auto) 9 % (0-9) Eosinophils (%) (Auto) 5 % (0-3) Basophils (%) (Auto) 1 % (0-3) Neutrophils # (Auto) 2.0 x10^3/uL (1.8-7.7) Lymphocytes # (Auto) 1.5 x10^3/uL (1.0-4.8) Monocytes # (Auto) 0.4 x10^3/uL (0.0-1.1) Eosinophils # (Auto) 0.2 x10^3/uL (0.0-0.7) Basophils # (Auto) 0.1 x10^3/uL (0.0-0.2) Prothrombin Time 13.1 SEC (11.7-14.0) Prothromb Time International Ratio 1.0 (0.8-1.1) Activated Partial Thromboplast Time 26 SEC (24-38) D-Dimer (Lyndsay) 0.78 ug/mlFEU (0.00-0.50) Sodium Level 143 mmol/L (136-145) Potassium Level 4.2 mmol/L (3.5-5.1) Chloride Level 103 mmol/L (98-107) Carbon Dioxide Level 28 mmol/L (21-32) Anion Gap 12 (6-14) Blood Urea Nitrogen 32 mg/dL (7-20) Creatinine 1.6 mg/dL (0.6-1.0) Estimated GFR (Cockcroft-Gault) 31.1 BUN/Creatinine Ratio 20 (6-20) Glucose Level 133 mg/dL (70-99) Calcium Level 8.8 mg/dL (8.5-10.1) Magnesium Level 2.1 mg/dL (1.8-2.4) Total Bilirubin 0.2 mg/dL (0.2-1.0) Aspartate Amino Transf (AST/SGOT) 14 U/L (15-37) Alanine Aminotransferase (ALT/SGPT) 18 U/L (14-59) Alkaline Phosphatase 85 U/L (46-116) Troponin I High Sensitivity 13 ng/L (4-50) 12 ng/L (4-50) UI-Nth-X-Type Natriuretic Peptide 262 pg/mL (0-449) Total Protein 7.7 g/dL (6.4-8.2) Albumin 3.5 g/dL (3.4-5.0) Albumin/Globulin Ratio 0.8 (1.0-1.7) Images Images Chest radiograph: Left chest dual-chamber pacemaker. The lungs are adequately and symmetrically inflated. No airspace consolidation, pleural effusion or pneumothorax. The c ardiomediastinal silhouette and pulmonary vasculature are within normal limits. No acute osseous abnormality. Soft tissues are unremarkable. Impression: 1. No acute cardiopulmonary process. VTE Prophylaxis Ordered VTE Prophylaxis Devices: Yes VTE Pharmacological Prophylaxi: Yes Assessment/Plan Assessment/Plan A/P: Chest pain - likely GI/GERD related. Atypical for chest pain. Had negative LHC 1 year ago Coronary artery disease status post PCI - patent stents as of 1 year ago HTN - metoprolol and verapamil. May need to adjust meds HLD - statin DM2 - sliding scale insulin. Hold actos for now Anxiety - on zoloft History of TIA - stable on ASA, statin S/p dual chamber pacemaker - interrogated Diarrhea - possibly with some PUD as well given her symptoms Will place on PPI BID, simethicone FEN - ADA diet PPX - heparin CODE - DNR/DNI Dispo - inpatient for chest pain, likely GI etiology. Cardiology consulted Justifications for Admission Other Justification VERA HERNANDEZ MD Oct 26, 2021 13:46
[2021-10-26 14:03] LABS: INFLUENZA A PATIENT NEGATIVE (NEGATIVE); INFLUENZA B PATIENT NEGATIVE (NEGATIVE)
[2021-10-26 15:03] VITALS: BP 145/60
--- NOTE | 2021-10-26 15:37 | CONS ---
DATE OF CONSULTATION: 10/26/2021 REASON FOR CONSULTATION: Chest pain. HISTORY OF PRESENT ILLNESS: The patient is a pleasant 80-year-old woman who comes into the ER today for evaluation of chest pain. She has been in her usual state of health and apparently she has had some chest pain for about 3 days or so and mostly stabbing in nature and appears to be nonanginal in her description. She denies any other significant issues. PAST MEDICAL HISTORY: 1. Coronary artery disease status post PCI. 2. Hypertension. 3. Dyslipidemia. 4. Type 2 diabetes. 5. Anxiety. 6. History of TIA. 7. Prior history of dual chamber pacemaker. SOCIAL HISTORY: No alcohol, tobacco or illicit drug use. HOME CARDIOVASCULAR MEDICATIONS: Include the followin. Hydrochlorothiazide/triamterene 25/37.5. 2. Metoprolol succinate 100 mg daily. 3. Crestor 10 mg daily. 4. Lisinopril 20 mg daily. 5. Verapamil 240 mg daily. 6. Aspirin 81 mg daily. 7. Gemfibrozil 600 mg b.i.d. REVIEW OF SYSTEMS: Negative for 10 out of 14 systems reviewed, unless otherwise mentioned above in HPI. ALLERGIES: MULTIPLE ANTIBIOTICS, MORPHINE, IODINE, DOXYCYCLINE AND TRAMADOL. PHYSICAL EXAMINATION: GENERAL: She is alert and oriented, in no acute distress. VITAL SIGNS: Notable for significantly elevated blood pressure with systolic blood pressure greater than 230. HEAD AND NECK: Otherwise, unremarkable. CARDIAC: Regular rate and rhythm without obvious murmurs, rubs or gallops. LUNGS: Clear to auscultation. ABDOMEN: Soft, nontender, nondistended. EXTREMITIES: No clubbing, cyanosis or edema. NEUROLOGIC: No focal deficits. MUSCULOSKELETAL: No trauma. DIAGNOSTIC STUDIES: Chest x-ray is unremarkable. Echocardiogram and cardiac catheterization in 2020 did not reveal any significant pathology. EKG did not demonstrate any significant abnormalities. Recent pacemaker interrogation did not reveal any significant abnormalities. ASSESSMENT: 1. Chest pain, likely secondary to uncontrolled hypertension. 2. Known history of coronary artery disease with recent workup as noted above, which was unremarkable. 3. Dyslipidemia. 4. Obesity. 5. Status post dual chamber pacemaker. RECOMMENDATIONS: We will reinitiate her home medical therapy and monitor her for any significant changes to her blood pressure. She may need additional agents. Supportive care for now. No further cardiac testing necessary. Thank you for this consultation. PSK/NIS DR: Crys TID: [id number]
[2021-10-26] MEDS ORDERED: traMADol 50 MG TABLET PO PRN (15:45)
[2021-10-26] MEDS ORDERED: fentaNYL PF VIAL 100 MCG/2 ML VIAL IVP PRN (15:45)
[2021-10-26] MEDS ORDERED: ACETAMINOPHEN 325 MG TABLET. PO PRN (15:45)
[2021-10-26] MEDS ORDERED: NITROGLYCERIN SUBLINGUAL 0.4 MG BOTTLE OF 25. SL PRN (15:45)
[2021-10-26] MEDS ORDERED: ONDANSETRON PF 4 MG/2 ML VIAL. IVP PRN (15:45)
[2021-10-26] MEDS ORDERED: hydrALAZINE 20 MG/ML VIAL. IVP PRN (16:00)
[2021-10-26] MEDS ORDERED: DEXTROSE 50% 25 GM / 50ML DISP.SYRIN. IV PRN (16:00)
[2021-10-26] MEDS: INSULIN LISPRO 300 UNITS/3 ML VIAL. SQ SCH ×2 (17:00→21:00)
[2021-10-26] MEDS ORDERED: ALBUTEROL SULFATE 2.5 MG/3 ML NEBU. INH PRN (17:30)
[2021-10-26] MEDS: PANTOPRAZOLE 40 MG TABLET.DR. PO SCH (17:30)
[2021-10-26] MEDS ORDERED: SIMETHICONE 80 MG TAB.CHEW PO PRN (17:30)
[2021-10-26] MEDS ORDERED: DICYCLOMINE HCL 10 MG CAPSULE PO PRN (17:30)
[2021-10-26 19:00] VITALS: BP 158/48
[2021-10-26] MEDS ORDERED: PSYLLIUM HUSK (SUGAR FREE) 1 PKT PACKET PO SCH (21:00)
[2021-10-26] MEDS ORDERED: GABAPENTIN 300 MG CAPSULE. PO SCH (21:00)
[2021-10-26] MEDS ORDERED: ATORVASTATIN CALCIUM 40 MG TABLET. PO SCH (21:00)
[2021-10-26] MEDS ORDERED: traZODone 50 MG TABLET. PO SCH (21:00)
[2021-10-26 23:00] VITALS: BP 160/61
--- NOTE | 2021-10-27 01:44 | EKG ---
[facility] [address] [place] [address] Test Date: 2021-10-26 Test Time: 11:29:22 Pat Name: REESE ERICKSON Department: Room: 512 Gender: F Human Resources Compensation Analyst: : 1940 Requested By: HENOK MCCULLOUGH Order Number: [id number] Reading MD: Noah Jack MD Measurements Intervals [place] Rate: 62 P: 48 WY: 196 QRS: -32 QRSD: 154 T: 35 QT: 430 QTc: 439 Interpretive Statements A-V PACING Electronically Signed On 10-28-2021 9:21:10 OSTEOPATHIC PHYSICIAN by Noah Jack MD
--- NOTE | 2021-10-27 01:44 | EKG ---
[facility] [address] [place] [address] Test Date: 2021-10-26 Test Time: 11:27:14 Pat Name: REESE ERICKSON Department: Room: [facility] Gender: F Commercial Housekeeper: : 1940 Requested By: HENOK MCCULLOUGH Order Number: [id number] Reading MD: Noah Jack MD Measurements Intervals [place] Rate: 68 P: [place]: QRS: -37 QRSD: 150 T: 72 QT: 424 QTc: 451 Interpretive Statements A-V PACING Electronically Signed On 10-28-2021 9:21:21 COMMUNICATIONS ATTENDANT by Noah Jack MD
[2021-10-27 03:08] VITALS: BP 136/48
[2021-10-27] MEDS: PANTOPRAZOLE 40 MG TABLET.DR. PO SCH (07:30)
[2021-10-27] MEDS ORDERED: LEVOTHYROXINE 112 MCG TABLET PO SCH (07:30)
[2021-10-27 08:00] VITALS: BP 125/41
[2021-10-27] MEDS: INSULIN LISPRO 300 UNITS/3 ML VIAL. SQ SCH ×2 (08:00→12:00)
[2021-10-27] MEDS ORDERED: SERTRALINE 50 MG TABLET. PO SCH (09:00)
[2021-10-27] MEDS ORDERED: CETIRIZINE HCL 10 MG TABLET. PO SCH (09:00)
[2021-10-27] MEDS ORDERED: METOPROLOL SUCC 24HR ER 100 MG TAB.ER.24H. PO SCH (09:00)
[2021-10-27] MEDS ORDERED: VERAPAMIL SR 120 MG TABLET.ER. PO SCH (09:00)
[2021-10-27] MEDS ORDERED: ASPIRIN ENTERIC COATED 81 MG TABLET.DR. PO SCH (09:00)
[2021-10-27] MEDS ORDERED: FOLIC ACID 1 MG TABLET. PO SCH (09:00)
[2021-10-27] MEDS ORDERED: LISINOPRIL 20 MG TABLET PO SCH (09:00)
[2021-10-27 11:00] VITALS: BP 174/64
[2021-10-27] MEDS ORDERED: PANT40TA77 PO (11:08)
[2021-10-27] MEDS ORDERED: ATOR40TA59 PO (11:08)
--- NOTE | 2021-10-27 11:19 | DISCH ---
DISCHARGE INSTRUCTIONS Condition on Discharge Condition on Discharge: Stable Activity After Discharge Activity Instructions for Disc: Activity as tolerated Bathing Instructions: No Tub Bath until see Lifting Instructions after Dis: No heavy lifting, No pulling or pushing, Do not lift >10 pounds Exercise Instruction after Dis: Progress as tolerated Driving Instructions after Dis: Do not drive today Weight Bearing Status after Di: As tolerated Diet after Discharge Diet after Discharge: Diabetic No Calorie Level Diet Texture: Regular Liquid Texture: Thin Liquid Swallowing Supervision: None needed Wound Incision Care Wound/Incision Care: No wound care needed Checks after Discharge Checks after discharge: Check blood press - daily, Check blood sugar, ac/hs, Check your Temp as needed Contacting the DR. after DC Call your doctor for: If your condition worsens Follow-Up Follow up with: PCP within 2 weeks of discharge Follow Up With: Cardiology as scheduled or as needed Treatment/Equipment after DC Adaptive Equipment Issued: NILO Prabhakar MD Oct 27, 2021 11:19
[2021-10-27 12:57] VITALS: BP 125/41
--- NOTE | 2021-10-27 14:31 | PDOC ---
[facility] PROGRESS NOTE Date of Service DOS: DATE: 10/27/21 TIME: 14:29 Chief Complaint Chief Complaint Assessment/Plan A/P: Chest pain - likely GI/GERD related. Atypical for chest pain. Had negative LHC 1 year ago Coronary artery disease status post PCI - patent stents as of 1 year ago HTN - metoprolol and verapamil. May need to adjust meds HLD - statin DM2 - sliding scale insulin. Hold actos for now Anxiety - on zoloft History of TIA - stable on ASA, statin S/p dual chamber pacemaker - interrogated Diarrhea - possibly with some PUD as well given her symptoms Will place on PPI BID, simethicone FEN - ADA diet PPX - heparin CODE - DNR/DNI Dispo - inpatient for chest pain, likely GI etiology. Cardiology consulted History of Present Illness History of Present Illness 80-year-old female with PMH CAD status post PCI with VANITA, HTN, HLD, DM2, anxiety, prior TIA SSS status post dual-chamber pacemaker who comes to the ED today at the behest of her family for progressive chest pain. Pain began 3 days ago stabbing sternal area sometimes radiates to her back with some associated nausea. She also has associated diarrhea. Repositioning and activity do not a ffect it. She notes that sometimes improves with eating and drinking. On further review she notes that diarrhea has been ongoing for several months and she was instructed to take Imodium A-D and feels that it occasionally helps. No other significant medication changes. She takes Tums occasionally for heartburn. WBC 4.1, Hb 10.8, platelets 200 3, K4.2, BUN 32, CR 1.6, glucose 133, LFTs within normal laboratory limits, high-sensitivity troponin is 13, NT proBNP is 13, INR 1, D-dimer minimally elevated at 0.78 chest radiograph with no acute abnormality left-sided dual-chamber pacemaker noted Admitted for further care. 10/27/2021 No acute events overnight. Patient seen examined bedside. Patient's blood pressures are better controlled but continues to have some labile blood pressures. Measured at 174/64 around 11:00 AM. We will continue to observe today and see if we need to adjust her blood pressure medications any further. Patient's chart, labs, images were reviewed and discussed with RN Vitals/I&O Vitals/I&O: Vital Signs Date Time Temp Pulse Resp B/P (MAP) Pulse Ox O2 Delivery O2 Flow Rate FiO2 10/27/21 12:57 59 125/41 10/27/21 11:00 97.4 18 97 Room Air 97.4 I & O 10/26/21 10/26/21 10/27/21 15:00 23:00 07:00 Output Total 0 ml Balance 0 ml Physical Exam General: Alert, Oriented X3, Cooperative, mild distress Lungs: Clear Abdomen: Normal bowel sounds, Soft, No hepatosplenomegaly, No masses, Other (Epigastric tenderness) Extremities: No clubbing, No cyanosis, No edema, Normal pulses, No tenderness/swelling Skin: No rashes, No breakdown, No significant lesion Labs Labs: Laboratory Tests Test 10/26/21 16:40 10/26/21 20:24 10/27/21 07:41 10/27/21 12:05 Troponin I High Sensitivity 14 ng/L (4-50) Glucose (Fingerstick) 114 mg/dL (70-99) 72 mg/dL (70-99) 108 mg/dL (70-99) Comment Review of Relevant I have reviewed the following items donna (where applicable) has been applied. Medications: Current Medications Medications (Trade) Dose Ordered Sig/Eloisa Route PRN Reason Start Time Stop Time Status Last Admin Dose Admin Acetaminophen (Tylenol) 650 mg PRN Q6HRS PRN PO MILD PAIN / TEMP > 100.3'F 10/26/21 15:45 10/26/21 21:46 Psyllium Hydrophilic Mucilloid (Metamucil Fiber Packet) 1 pkt QHS PO 10/26/21 21:00 10/26/21 21:47 Aspirin (Ecotrin) 81 mg DAILY PO 10/27/21 09:00 10/27/21 09:00 Gabapentin (Neurontin) 300 mg QHS PO 10/26/21 21:00 10/26/21 21:47 Levothyroxine Sodium (Synthroid) 112 mcg DAILYAC PO 10/27/21 07:30 10/27/21 07:30 Lisinopril (Prinivil) 20 mg DAILY PO 10/27/21 09:00 10/27/21 09:00 Metoprolol Succinate (Toprol Xl) 100 mg DAILY PO 10/27/21 09:00 10/27/21 09:00 Pantoprazole Sodium (Protonix) 40 mg BIDAC PO 10/26/21 17:30 10/27/21 07:30 Trazodone HCl (Desyrel) 50 mg HS PO 10/26/21 21:00 10/26/21 21:47 Cetirizine HCl (ZyrTEC) 10 mg DAILY PO 10/27/21 09:00 10/27/21 09:00 Folic Acid (Folic Acid) 1 mg DAILY PO 10/27/21 09:00 10/27/21 09:00 Atorvastatin Calcium (Lipitor) 40 mg QHS PO 10/26/21 21:00 10/26/21 21:46 Sertraline HCl (Zoloft) 100 mg DAILY PO 10/27/21 09:00 10/27/21 09:00 Verapamil HCl (Calan Sr) 240 mg DAILY PO 10/27/21 09:00 10/27/21 12:57 Justifications for Admission Other Justification NILO SANDERS MD Oct 27, 2021 14:31
--- NOTE | 2021-10-27 15:31 | PDOC ---
CARDIOLOGY PROGRESS NOTE SUBJECTIVE: No acute events overnight. The patient reports that she is feeling better. Blood pressure is much better controlled. OBJECTIVE: Vital Signs/I&O: Vital Signs Date Time Temp Pulse Resp B/P (MAP) Pulse Ox O2 Delivery O2 Flow Rate FiO2 10/27/21 12:57 59 125/41 10/27/21 11:00 97.4 18 97 Room Air 97.4 I & O 10/26/21 10/26/21 10/27/21 15:00 23:00 07:00 Output Total 0 ml Balance 0 ml Objective: The patient appeared well nourished and normally developed. Head exam is unremarkable. No scleral icterus or corneal arcus noted. Neck is without jugular venous distension, thyromegaly, or carotid bruits. Carotid upstrokes are brisk bilaterally. Lungs are clear to auscultation and percussion. Cardiac exam reveals the PMI to be normally sized and situated. Rhythm is regular. First and second heart sounds normal. No murmurs, rubs or gallops. Abdominal exam reveals normal bowel sounds, no masses, no organomegaly and no aortic enlargement. Extremities are nonedematous and both femoral and pedal pulses are normal. Msk: No traumua Neuro: No focal deficits CURRENT MEDICATIONS: Current Medications Medications (Trade) Dose Ordered Sig/Eloisa Route PRN Reason Start Time Stop Time Status Last Admin Dose Admin Acetaminophen (Tylenol) 650 mg PRN Q6HRS PRN PO MILD PAIN / TEMP > 100.3'F 10/26/21 15:45 10/26/21 21:46 Psyllium Hydrophilic Mucilloid (Metamucil Fiber Packet) 1 pkt QHS PO 10/26/21 21:00 10/26/21 21:47 Aspirin (Ecotrin) 81 mg DAILY PO 10/27/21 09:00 10/27/21 09:00 Gabapentin (Neurontin) 300 mg QHS PO 10/26/21 21:00 10/26/21 21:47 Levothyroxine Sodium (Synthroid) 112 mcg DAILYAC PO 10/27/21 07:30 10/27/21 07:30 Lisinopril (Prinivil) 20 mg DAILY PO 10/27/21 09:00 10/27/21 09:00 Metoprolol Succinate (Toprol Xl) 100 mg DAILY PO 10/27/21 09:00 10/27/21 09:00 Pantoprazole Sodium (Protonix) 40 mg BIDAC PO 10/26/21 17:30 10/27/21 07:30 Trazodone HCl (Desyrel) 50 mg HS PO 10/26/21 21:00 10/26/21 21:47 Cetirizine HCl (ZyrTEC) 10 mg DAILY PO 10/27/21 09:00 10/27/21 09:00 Folic Acid (Folic Acid) 1 mg DAILY PO 10/27/21 09:00 10/27/21 09:00 Atorvastatin Calcium (Lipitor) 40 mg QHS PO 10/26/21 21:00 10/26/21 21:46 Sertraline HCl (Zoloft) 100 mg DAILY PO 10/27/21 09:00 10/27/21 09:00 Verapamil HCl (Calan Sr) 240 mg DAILY PO 10/27/21 09:00 10/27/21 12:57 DIAGNOSTIC TESTING: No new diagnostic studies Labs: Laboratory Tests Test 10/26/21 16:40 10/26/21 20:24 10/27/21 07:41 10/27/21 12:05 Troponin I High Sensitivity 14 ng/L (4-50) Glucose (Fingerstick) 114 mg/dL (70-99) H 72 mg/dL (70-99) 108 mg/dL (70-99) H ASSESSMENT: 1. Noncardiac chest pain 2. Labile blood pressure 3. Coronary artery disease currently without angina and recent cardiac catheterization unremarkable 4. Tachybradycardia syndrome status post pacemaker, remote, normal function on recent evaluation PLAN: 1. Continue current medical therapy. No further cardiovascular testing or changes necessary. Okay to discharge from a cardiac standpoint. We will follow-up with her in the office in discuss any titration of medical therapy as needed. Justicifation of Admission Dx: Justifications for Admission: Justification of Admission Dx: Yes CATHLEEN ZENDEJAS MD Oct 27, 2021 15:31
--- NOTE | 2021-10-27 17:08 | NUR ---
Patient discharged home to son. Patient took belongings from room, including shirt, pants, shoes, jacket and cell phone. (Glasses were not brought up yesterday, and purse had been taken home after arrival to hospital by son)
--- NOTE | 2021-11-04 13:02 | PDOC3 ---
[facility]-Discharge Summary Date of Admission: Date of Admission: Oct 26, 2021 Date of Discharge: Date of Discharge: Oct 27, 2021 Discharge Diagnosis: Discharge Diagnosis: Chest pain - likely GI/GERD related. Atypical for chest pain. Had negative LHC 1 year ago Coronary artery disease status post PCI - patent stents as of 1 year ago HTN - metoprolol and verapamil. May need to adjust meds HLD - statin DM2 - sliding scale insulin. Hold actos for now Anxiety - on zoloft History of TIA - stable on ASA, statin S/p dual chamber pacemaker - interrogated Diarrhea - possibly with some PUD as well given her symptoms Will place on PPI BID, simethicone Consults: Consults: Per cardiology: ASSESSMENT: 1. Noncardiac chest pain 2. Labile blood pressure 3. Coronary artery disease currently without angina and recent cardiac catheterization unremarkable 4. Tachybradycardia syndrome status post pacemaker, remote, normal function on recent evaluation PLAN: 1. Continue current medical therapy. No further cardiovascular testing or changes necessary. Okay to discharge from a cardiac standpoint. We will follow-up with her in the office in discuss any titration of medical therapy as needed. Hospital Course: Hospital Course: 80-year-old female with PMH CAD status post PCI with VANITA, HTN, HLD, DM2, anxiety, prior TIA SSS status post dual-chamber pacemaker who comes to the ED today at the behest of her family for progressive chest pain. Pain began 3 days ago stabbing sternal area sometimes radiates to her back with some associated nausea. She also has associated diarrhea. Repositioning and activity do not affect it. She notes that sometimes improves with eating and drinking. On further review she notes that diarrhea has been ongoing for several months and she was instructed to take Imodium A-D and feels that it occasionally helps. No other significant medication changes. She takes Tums occasionally for heartburn. WBC 4.1, Hb 10.8, platelets 200 3, K4.2, BUN 32, CR 1.6, glucose 133, LFTs within normal laboratory limits, high-sensitivity troponin is 13, NT proBNP is 13, INR 1, D-dimer minimally elevated at 0.78 chest radiograph with no acute abnormality left-sided dual-chamber pacemaker noted Admitted for further care. 10/27/2021 No acute events overnight. Patient seen examined bedside. Patient's blood pressures are better controlled but continues to have some labile blood pressures. Measured at 174/64 around 11:00 AM. We will continue to observe today and see if we need to adjust her blood pressure medications any further. Patient's chart, labs, images were reviewed and discussed with RN Patient clinically stable on day of discharge. Chest pain-free. Rest of hospital course was uneventful Disposition: Disposition/Orders: D/C to Home Activity: Activity: Resume previous activity Diet: Diet: Cardiac Medications: Home Meds Active Scripts Atorvastatin Calcium (ATORVASTATIN CALCIUM) 40 Mg Tablet, 40 MG PO QHS for cholesterol for 30 Days, #30 TAB 2 Refills Prov:NILO SANDERS MD 10/27/21 Pantoprazole Sodium (PANTOPRAZOLE SODIUM ) 40 Mg Tablet.dr, 40 MG PO BIDAC for reflux disease for 30 Days, #60 TAB.SR 2 Refills Prov:NILO SANDERS MD 10/27/21 Dicyclomine Hcl (DICYCLOMINE HCL) 10 Mg Capsule, 10 MG PO PRN TID PRN for abd pain for 10 Days, #30 CAP Prov:KERRY REEVES MD 05/18/19 Metoprolol Succinate (METOPROLOL SUCCINATE ( XL )) 100 Mg Tab.er.24h, 100 MG PO DAILY, #30 TAB 0 Refills Prov:JOAN HAMMOND MD 08/06/16 Reported Medications Primidone (MYSOLINE) 50 Mg Tablet, 3 TAB PO QHS for TREMORS for 30 Days, #90 TAB 0 Refills 02/13/21 Loperamide HCl (Imodium A-D) 2 Mg Capsule, 2 MG PO TID PRN PRN for DIARRHEA, CAP 02/13/21 [place]-3 Fatty Acids/Fish Oil (FISH OIL 1,000 MG SOFTGEL) 1 Each Capsule, 1000 EACH PO DAILY for SUPPLEMENT, CAP 02/13/21 Folic Acid (FOLIC ACID) 0.4 Mg Tablet, 0.4 MG PO DAILY for SUPPLEMENT, TAB 02/13/21 Tramadol Hcl (TRAMADOL HCL) 50 Mg Tablet, 50 MG PO DAILY PRN for PAIN, TAB 0 Refills 03/28/19 Benzonatate (TESSALON PERLE) 100 Mg Capsule, 1 CAP PO PRN TID PRN for COUGH, #21 CAP 03/28/19 Gemfibrozil (LOPID) 600 Mg Tablet, 1 TAB PO BID for high cholestrol , #60 TAB 5 Refills 12/01/18 Pioglitazone Hcl (ACTOS) 15 Mg Tablet, 1 TAB PO DAILY for f, #30 TAB 5 Refills 12/01/18 Lisinopril (LISINOPRIL) 20 Mg Tablet, 1 TAB PO DAILY for HTN, #30 TAB 5 Refills 12/01/18 Gabapentin (GABAPENTIN ) 300 Mg Capsule, 300 MG PO TID for NEUROGENIC PAIN, CAP 12/01/18 Verapamil Hcl (VERAPAMIL ER) 240 Mg Cap24h.pel, 240 MG PO DAILY, CAP.SR 07/13/17 Levothyroxine Sodium (LEVOTHYROXINE SODIUM) 112 Mcg Tablet, 112 MCG PO DAILYAC for THYROID SUPPLEMENT, #30 TAB 0 Refills 07/13/17 Albuterol Sulfate (PROAIR HFA INHALER) 8.5 Gm Hfa.aer.ad, 1 PUFF INH PRN Q6HRS PRN for SHORTNESS OF BREATH, INHALER 0 Refills 04/09/15 Trazodone Hcl (TRAZODONE HCL) 50 Mg Tablet, 50 MG PO HS, TAB 04/09/15 Sertraline Hcl (SERTRALINE HCL) 100 Mg Tablet, 100 MG PO DAILY for ANTI-DEPRES KATIE, TAB 0 Refills 04/09/15 Ipratropium/Albuterol Sulfate (COMBIVENT RESPIMAT INHAL) 4 Gm Aer.w.adap, 2 INH IH QID, INHALER 04/09/15 Fexofenadine Hcl (ADORE ALLERGY) 60 Mg Tablet, 60 MG PO DAILY, TAB 04/09/15 Nitroglycerin (NITROSTAT) 0.4 Mg Tab.subl, 1 TAB SL UD, #100 TAB 3 Refills 04/09/15 Aspirin (ASPIR 81) 81 Mg Tablet.dr, 1 TAB PO DAILY for heart health, #30 TAB 5 Refills 04/09/15 Multivitamin (MULTI VITAMIN DAILY) 1 Each Tablet, 1 EACH PO 04/09/15 Scheduled Aspirin (Aspir 81), 1 TAB PO DAILY, (Reported) Atorvastatin Calcium (Atorvastatin Calcium), 40 MG PO QHS Fexofenadine Hcl (Adore Allergy), 60 MG PO DAILY, (Reported) Folic Acid (Folic Acid), 0.4 MG PO DAILY, (Reported) Gabapentin (Gabapentin ), 300 MG PO TID, (Reported) Gemfibrozil (Lopid), 1 TAB PO BID, (Reported) Ipratropium/Albuterol Sulfate (Combivent Respimat Inhal), 2 INH IH QID, (Reported) Levothyroxine Sodium (Levothyroxine Sodium), 112 MCG PO DAILYAC, (Reported) Lisinopril (Lisinopril), 1 TAB PO DAILY, (Reported) Metoprolol Succinate (Metoprolol Succinate ( Xl )), 100 MG PO DAILY Nitroglycerin (Nitrostat), 1 TAB SL UD, (Reported) [place]-3 Fatty Acids/Fish Oil (Fish Oil 1,000 Mg Softgel), 1,000 EACH PO DAILY, (Reported) Pantoprazole Sodium (Pantoprazole Sodium ), 40 MG PO BIDAC Pioglitazone Hcl (Actos), 1 TAB PO DAILY, (Reported) Primidone (Mysoline), 3 TAB PO QHS, (Reported) Sertraline Hcl (Sertraline Hcl), 100 MG PO DAILY, (Reported) Trazodone Hcl (Trazodone Hcl), 50 MG PO HS, (Reported) Verapamil Hcl (Verapamil Er), 240 MG PO DAILY, (Reported) Scheduled PRN Albuterol Sulfate (Proair Hfa Inhaler), 1 PUFF INH PRN Q6HRS PRN for SHORTNESS OF BREATH, (Reported) Benzonatate (Tessalon Perle), 1 CAP PO PRN TID PRN for COUGH, (Reported) Dicyclomine Hcl (Dicyclomine Hcl), 10 MG PO PRN TID PRN for abd pain Loperamide HCl (Imodium A-D), 2 MG PO TID PRN PRN for DIARRHEA, (Reported) Tramadol Hcl (Tramadol Hcl), 50 MG PO DAILY PRN for PAIN, (Reported) Miscellaneous Medications Multivitamin (Multi Vitamin Daily), 1 EACH PO, (Reported) Total Time: Total Time: Total time spent was 32 minutes in preparing scripts, discharge planning with SWI and RN and preparing this discharge summary Patient seen and examined on day of discharge. No acute abnormal findings. Justicifation of Admission Dx: Justifications for Admission: Justification of Admission Dx: Yes NILO SANDERS MD Nov 04, 2021 13:02
== END 2021-10-27 17:08 | disposition home or self-care (01) | DRG 305 ==
LOC: ER 10:20 → 5 NORTH 12:15
PROVIDERS: ADMIT Internal Medicine; ATTEND Internal Medicine
PROC: 4B02XSZ Measurement of Cardiac Pacemaker, External Approach (ICD-10-PCS; principal; 2021-10-26)
DX: I16.0 Hypertensive urgency (principal); K21.9 Gastro-esophageal reflux disease without esophagitis; Z79.01 Long term (current) use of anticoagulants; E03.9 Hypothyroidism, unspecified; E11.9 Type 2 diabetes mellitus without complications; E66.9 Obesity, unspecified; E78.00 Pure hypercholesterolemia, unspecified; E78.5 Hyperlipidemia, unspecified; F41.9 Anxiety disorder, unspecified; I10 Essential (primary) hypertension; I25.10 Atherosclerotic heart disease of native coronary artery without angina pectoris; J44.9 Chronic obstructive pulmonary disease, unspecified; Z66 Do not resuscitate; Z79.82 Long term (current) use of aspirin; Z79.899 Other long term (current) drug therapy; Z82.49 Family history of ischemic heart disease and other diseases of the circulatory system; Z86.73 Personal history of transient ischemic attack (TIA), and cerebral infarction without residual deficits; Z90.710 Acquired absence of both cervix and uterus; Z95.0 Presence of cardiac pacemaker; Z95.5 Presence of coronary angioplasty implant and graft; F32.A Depression, unspecified; G62.9 Polyneuropathy, unspecified; M19.90 Unspecified osteoarthritis, unspecified site; Z20.822 Contact with and (suspected) exposure to COVID-19
CPT/HCPCS: 36415; 71045; 80053; 82962; 83735; 83880; 84484; 85025; 85379; 85610; 85730; 87428; 93005; 94640; J1815; U0003; U0005; 99285-25; G0378

== ENCOUNTER 2021-12-04 15:41 | Inpatient (IN) | payer MEDICARE, BC ==
[~2021-12-04] VITALS: Ht 156.2 cm; Wt 116.1 kg
[~2021-12-04 15:41] MED LIST changes: +ATOR40TA59 PO
--- NOTE | 2021-12-04 15:54 | PHYS DOC ---
Past Medical History Past Medical History: Anemia, Anxiety, Bronchitis, CAD, COPD, Depression, Diabetes-Type II, High Cholesterol, Hypertension, Hypothyroid, [place], Renal Disease, TIA, Other Additional Past Medical Histor: COVID-AUG 2020,NEUROPATHY Past Surgical History: Angioplasty, Appendectomy, Cholecystectomy, Hysterectomy, Pacemaker, Tonsillectomy Additional Past Surgical Histo: 6 cardiac stents, Smoking Status: Never Smoker Alcohol Use: None Drug Use: None General Adult HPI: HPI: Patient is a 81 year old female who presents with progressive dyspnea for the past 1 or 2 weeks. She describes PND and orthopnea symptoms. She denies chest pain. She has noticed progressive lower extremity swelling for the several months. She denies cough, wheezing, hemoptysis, fevers or chills. She had not contacted her doctor until today, and her doctor recommended she go to the hospital to be seen. Also, she tripped and fell on the edge of her bed a few days ago and she has pain on her anterior left lower extremity. She requests an x-ray for this. She denies any calf pain. No asymmetric lower extremity swelling. The patient reports that she has a history of COPD, and she still believes that she has "smokers lungs." She has never smoked, but has reportedly had significant secondhand smoke exposure. She denies recent travel, surgery, hospitalization. No recent immobilization. Review of Systems: Review of Systems: Constitutional: Denies fever or chills. [] HENT: Denies nasal congestion or sore throat. [] Respiratory: Denies cough. Reports dyspnea, PND, orthopnea and dyspnea with exertion Cardiovascular: Denies chest pain. Bilateral lower extremity edema. GI: Denies abdominal pain, nausea, vomiting : Denies urinary symptoms Musculoskeletal: Denies back pain or joint pain. Reports proximal anterior left lower extremity/tibial pain. Integument: Denies rash. Open wounds. Neurologic: Denies headache, focal weakness or sensory changes. Denies dizziness or syncope. Psychiatric: Denies depression or anxiety. [] Heart Score: C/O Chest Pain: No Risk Factors: Risk Factors: DM, Current or recent (<one month) smoker, HTN, HLP, family histo ry of CAD, obesity. Risk Scores: Score 0 - 3: 2.5% MACE over next 6 weeks - Discharge Home Score 4 - 6: 20.3% MACE over next 6 weeks - Admit for Clinical Observation Score 7 - 10: 72.7% MACE over next 6 weeks - Early Invasive Strategies Allergies: Allergies: Allergies Coded Allergies Type Severity Reaction Last Updated Verified Iodinated Contrast Media Allergy Intermediate FLU SYMPTOMS, NASAL CONGESTION 07/18/19 Yes Tetracyclines Allergy Intermediate 08/04/16 Yes codeine Allergy Intermediate 02/13/21 Yes morphine Allergy Intermediate 08/04/16 Yes nitrofurantoin Allergy Intermediate 08/04/16 Yes tetrabenazine Allergy Intermediate 03/29/19 Yes Physical Exam: PE: Constitutional: Well developed, well nourished, nontoxic, chronically ill- appearing female mildly anxious. HENT: Normocephalic, atraumatic Eyes: There are clear and anicteric, conjunctive a are clear Neck: Normal range of motion, no tenderness, supple, no stridor. Trachea midline. Cardiovascular:Heart rate regular rhythm, 2 radial and +2 posterior tibial pulses bilaterally Lungs & Thorax: Diminished breath sounds in bilateral bases, fine rales bilateral bases. Mild tachypnea. No retractions. No wheezing, no stridor. No cyanosis. Abdomen: Abdomen is obese, soft, nondistended, nontender to palpation. Skin: Warm, dry, no erythema, no rash. [] Back: No tenderness, no CVA tenderness. [] Extremities: Bilateral, symmetric lower extremity +2 pitting edema. No calf tenderness. No evidence of deformity. Mild left anterior tibial tenderness to palpation. Negative Homans. No palpable cord. No warmth erythema Neurologic: Alert and oriented X 3, normal motor function, normal sensory fun ction, no focal deficits noted. [] Psychologic: Affect normal, judgement normal, mood normal. She is pleasant and cooperative. EKG: EKG: EKG is interpreted at 1552 Rhythm is sinus Rate is 75 bpm Arnold is left artifact No obvious acute ischemia No STEMI Q waves V1, V2, V3, V4, V5, III, aVF Radiology/Procedures: Radiology/Procedures: IMAGING REPORT Signed PATIENT: REESE ERICKSON ACCOUNT: [id number] : 1940 LOCATION: ER AGE: 81 SEX: F EXAM STATUS: REG ER ORD. PHYSICIAN: GARLAND [place]ES DO REASON: dyspnea PROCEDURE: PORTABLE CHEST 1V AP chest. HISTORY: Dyspnea AP view was taken of the chest. There is a left pacemaker with atrial ventricular pacing leads. There are no confluent infiltrates. There is mild vascular congestion. IMPRESSION: 1. Heart upper normal in size. 2. Mild vascular congestion. 3. No confluent infiltrates. Electronically signed by: Chuck Chapman MD (12/04/2021 4:43 PM) [facility] DICTATED and SIGNED BY: CHUCK CHAPMAN MD DATE: 12/04/[id number] 0 IMAGING REPORT Signed PATIENT: REESE ERICKSON ACCOUNT: [id number] : 1940 LOCATION: ER AGE: 81 SEX: F EXAM STATUS: REG ER ORD. PHYSICIAN: GARLAND NAPOLES DO REASON: fall PROCEDURE: TIBIA FIBULA LEFT Exam: XR LT TIBIA + FIBULA History: Fall Comparison: None. Findings: Osseous mineralization is normal. No acute fracture or dislocaton. Degenerative changes of the knee with joint space narrowing and marginal osteophyte formation. No focal soft tissue swelling. Impression: 1. No acute osseous abnormality in the tibia and fibula. Electronically signed by: Luis A Davis MD (12/04/2021 4:45 PM) [id number] DICTATED and SIGNED BY: LUIS A DAVIS MD DATE: 12/04/[id number] 0 Course & Med Decision Making: Course & Med Decision Making Pertinent Labs and Imaging studies reviewed. (See chart for details) The patient was significantly hypertensive. She is given Nitropaste and oral aspirin. IV Lasix ordered. She is resting very comfortably. She reports improvement in dyspnea. She is manifesting no evidence of acute respiratory distress or hypoxia. I have discussed the findings, differential diagnosis and plan of care with her. I have recommended hospitalization and cardiology consultation. She declines any pain medication for her left lower extremity pain. No fracture noted on x-ray. She is comfortable with the plan for admission. She is excepted for admission by Dr. Vargas. Celso Disclaimer: Celso Disclaimer: This electronic medical record was generated, in whole or in part, using a voice recognition dictation system. Departure Departure Impression: Primary Impression: Congestive heart failure Additional Impression: Hypertensive emergency Disposition: ADMITTED INPATIENT Admitting Physician: BECKY (Dr. Vargas) Condition: GUARDED Referrals: NAIF GONZALES MD (PCP) GARLAND [place] DO Dec 04, 2021 15:54
[2021-12-04 16:13] LABS: BASO # 0.1 x10^3/uL (0.0-0.2); BASO % 1 % (0-3); EOS # 0.1 x10^3/uL (0.0-0.7); EOS % 3 % (0-3); HEMATOCRIT 30.6 % (36.0-47.0); HEMOGLOBIN 10.1 g/dL (12.0-15.5); LYMPH # 0.9 x10^3/uL (1.0-4.8); LYMPH % 21 % (24-48); MEAN CORPUSCULAR HEMOGLOBIN 31 pg (25-35); MEAN CORPUSCULAR HGB CONC 33 g/dL (31-37); MEAN CORPUSCULAR VOLUME 95 fL (79-100); MONO # 0.3 x10^3/uL (0.0-1.1); MONO % 6 % (0-9); NEUT # 3.1 x10^3/uL (1.8-7.7); NEUT % 69 % (31-73); PLATELET COUNT 213 x10^3/uL (140-400); RED BLOOD COUNT 3.24 x10^6/uL (3.50-5.40); RED CELL DISTRIBUTION WIDTH 13.4 % (11.5-14.5); WHITE BLOOD COUNT 4.4 x10^3/uL (4.0-11.0)
[2021-12-04] MEDS ORDERED: NITROGLYCERIN OINT 1 GM PACKET. TP ONE (16:15)
[2021-12-04] MEDS ORDERED: ASPIRIN ENTERIC COATED 325 MG TABLET.DR. PO ONE (16:15)
[2021-12-04 16:24] LABS: CALCIUM 8.3 mg/dL (8.5-10.1); CREATININE 1.3 mg/dL (0.6-1.0); GFR 39.4; POTASSIUM 4.3 mmol/L (3.5-5.1)
[2021-12-04 16:31] LABS: ALBUMIN 3.1 g/dL (3.4-5.0); ALBUMIN/GLOBULIN RATIO 0.7 (1.0-1.7); MAGNESIUM 1.7 mg/dL (1.8-2.4); TOTAL BILIRUBIN 0.2 mg/dL (0.2-1.0); TOTAL PROTEIN 7.3 g/dL (6.4-8.2)
--- NOTE | 2021-12-04 16:46 | RAD ---
AP chest. HISTORY: Dyspnea AP view was taken of the chest. There is a left pacemaker with atrial ventricular pacing leads. There are no confluent infiltrates. There is mild vascular congestion. IMPRESSION: 1. Heart upper normal in size. 2. Mild vascular congestion. 3. No confluent infiltrates. Electronically signed by: Chuck Chapman MD (12/04/2021 4:43 PM) [facility]
--- NOTE | 2021-12-04 16:48 | RAD ---
Exam: XR LT TIBIA + FIBULA History: Fall Comparison: None. Findings: Osseous mineralization is normal. No acute fracture or dislocaton. Degenerative changes of the knee w ith joint space narrowing and marginal osteophyte formation. No focal soft tissue swelling. Impression: 1. No acute osseous abnormality in the tibia and fibula. Electronically signed by: Luis A Quezada MD (12/04/2021 4:45 PM) [id number]
[2021-12-04 17:28] LABS: INFLUENZA A PATIENT NEGATIVE (NEGATIVE); INFLUENZA B PATIENT NEGATIVE (NEGATIVE)
[2021-12-04 19:00] VITALS: BP 167/77
[2021-12-04] MEDS ORDERED: FUROSEMIDE 20 MG/2 ML VIAL. IVP ONE (19:15)
--- NOTE | 2021-12-04 19:23 | PDOC1 ---
History and Physical Date of Service: DOS: DATE: 12/04/21 TIME: 19:04 Chief Complaint: Chief Complain: Shortness of breath History of Present Illness: HPI: 81-year-old female with past medical history of CAD, COPD, depression, diabetes mellitus type 2, hypothyroidism, and diastolic CHF comes in with shortness of breath. Patient states she has been compliant with her all her medications. Unfortunately she has not been noncompliant with her diet and she has likely eat a lot of salty foods. She lives with her 2 sons that mainly cooks and buys food for her. Denies any lower extremity swelling. Denies fevers, chest pain, palpitations or syncope. Patient does endorse orthopnea at night. Past Medical/Surgical History: PMH/PSH: Past Medical History: Anemia, Anxiety, Bronchitis, CAD, COPD, Depression, Diabetes-Type II, High Cholesterol, Hypertension, Hypothyroid, [place], Renal Disease, TIA, COVID-AUG 2020,NEUROPATHY Past Surgical History: Angioplasty, Appendectomy, Cholecystectomy, Hysterectomy, Pacemaker, Tonsillectomy, 6 cardiac stents, Allergies: Allergies: Coded Allergies: Iodinated Contrast Media (Verified Allergy, Intermediate, FLU SYMPTOMS, NASAL CONGESTION, 12/04/21) REACTION WAS 40 YEARS AGO. NO ALLERGY TO BETADINE, [place] WITH BENADRYL PRIOR Tetracyclines (Verified Allergy, Intermediate, 12/04/21) codeine (Verified Allergy, Intermediate, 12/04/21) nitrofurantoin (Verified Allergy, Intermediate, 12/04/21) tetrabenazine (Verified Allergy, Intermediate, 12/04/21) morphine (Verified Adverse Reaction, Intermediate, HALLUCINATIONS, 12/04/21) Family History: Family History: Reviewed with no relative findings in the chart Social History: Social History: Smoking Status: Never Smoker Alcohol Use: None Drug Use: None Current Medications: Current Medications Current Medications Nitroglycerin (Nitro-Bid Oint) 1 inch 1X ONCE TP Last administered on 12/04/21at 16:15; Start 12/04/21 at 16:15; Stop 12/04/21 at 16:16; Status DC Aspirin (Ecotrin) 325 mg 1X ONCE PO Last administered on 12/04/21at 16:15; Start 12/04/21 at 16:15; Stop 12/04/21 at 16:16; Status DC Active Scripts Active Atorvastatin Calcium 40 Mg Tablet 40 Mg PO QHS 30 Days Pantoprazole Sodium (Pantoprazole Sodium) 40 Mg Tablet.dr 40 Mg PO BIDAC 30 Days Dicyclomine Hcl 10 Mg Capsule 10 Mg PO PRN TID PRN 10 Days Metoprolol Succinate ( Xl ) (Metoprolol Succinate) 100 Mg Tab.er.24h 100 Mg PO DAILY Reported Mysoline (Primidone) 50 Mg Tablet 3 Tab PO QHS 30 Days Imodium A-D (Loperamide HCl) 2 Mg Capsule 2 Mg PO TID PRN PRN Fish Oil 1,000 Mg Softgel ([employer]-3 Fatty Acids/Fish Oil) 1 Each Capsule 1,000 Each PO DAILY Folic Acid 0.4 Mg Tablet 0.4 Mg PO DAILY Tramadol Hcl 50 Mg Tablet 50 Mg PO DAILY PRN Tessalon Perle (Benzonatate) 100 Mg Capsule 1 Cap PO PRN TID PRN Lopid (Gemfibrozil) 600 Mg Tablet 1 Tab PO BID Actos (Pioglitazone Hcl) 15 Mg Tablet 1 Tab PO DAILY Lisinopril 20 Mg Tablet 1 Tab PO DAILY Gabapentin (Gabapentin) 300 Mg Capsule 300 Mg PO TID Verapamil Er (Verapamil Hcl) 240 Mg Cap24h.pel 240 Mg PO DAILY Levothyroxine Sodium 112 Mcg Tablet 112 Mcg PO DAILYAC Proair Hfa Inhaler (Albuterol Sulfate) 8.5 Gm Hfa.aer.ad 1 Puff INH PRN Q6HRS PRN Trazodone Hcl 50 Mg Tablet 50 Mg PO HS Sertraline Hcl 100 Mg Tablet 100 Mg PO DAILY Combivent Respimat Inhal (Ipratropium/Albuterol Sulfate) 4 Gm Aer.w.adap 2 Inh IH QID Maryanne Allergy (Fexofenadine Hcl) 60 Mg Tablet 60 Mg PO DAILY Nitrostat (Nitroglycerin) 0.4 Mg Tab.subl 1 Tab SL UD Aspir 81 (Aspirin) 81 Mg Tablet.dr 1 Tab PO DAILY Multi Vitamin Daily (Multivitamin) 1 Each Tablet 1 Each PO ROS: Review of Systems Review of System REVIEW OF SYSTEMS: GENERAL: Denies weakness SKIN: No bruising, hair changes or rashes. EYES: No blurred, double or loss of vision. NOSE AND THROAT: No history of nosebleeds, hoarseness or sore throat. HEART: No history of palpitations, chest pain or shortness of breath on exertion. LUNGS: Denies cough, hemoptysis, wheezing or shortness of breath. GASTROINTESTINAL: Denies changes in appetite, nausea, vomiting, diarrhea or constipation. GENITOURINARY: No history of frequency, urgency, hesitancy or nocturia. NEUROLOGIC: Denies history of numbness, tingling, or tremor. PSYCHIATRIC: No history of panic, anxiety or depression. ENDOCRINE: No history of heat or cold intolerance, polyuria or polydipsia. EXTREMITIES: Denies joint pain, pain on walking or stiffness. Physical Exam: Vital Signs: Vital Signs Date Time Temp Pulse Resp B/P (MAP) Pulse Ox O2 Delivery O2 Flow Rate FiO2 12/04/21 18:24 64 17 189/83 (118) 97 Room Air 12/04/21 15:44 98.3 98.3 Physcial Exam: General: Well developed, well nourished, no acute distress, well appearing HEENT: Pupils equally round and reactive to light, EOMI, no discharge, normal conjunctiva Neck: Supple, no nuchal rigidity, no JVD, trachea midline, no tenderness Cardiac: RRR, no murmurs, no gallops, no rubs Chest/Lungs: CTAB, no wheeze, no rhonchi, no crackles Abdomen: soft, non-distended, no guarding, no peritoneal signs, non-tender Back: No tenderness Extremities: no edema, pulses intact, non-tender,capillary refill <3 sec bilateral upper and lower extremities, Neuro: Alert and oriented x 4, no focal deficits, normal speech Labs: Labs: Laboratory Tests Test 12/04/21 16:00 12/04/21 16:50 White Blood Count 4.4 x10^3/uL (4.0-11.0) Red Blood Count 3.24 x10^6/uL (3.50-5.40) Hemoglobin 10.1 g/dL (12.0-15.5) Hematocrit 30.6 % (36.0-47.0) Mean Corpuscular Volume 95 fL (79-100) Mean Corpuscular Hemoglobin 31 pg (25-35) Mean Corpuscular Hemoglobin Concent 33 g/dL (31-37) Red Cell Distribution Width 13.4 % (11.5-14.5) Platelet Count 213 x10^3/uL (140-400) Neutrophils (%) (Auto) 69 % (31-73) Lymphocytes (%) (Auto) 21 % (24-48) Monocytes (%) (Auto) 6 % (0-9) Eosinophils (%) (Auto) 3 % (0-3) Basophils (%) (Auto) 1 % (0-3) Neutrophils # (Auto) 3.1 x10^3/uL (1.8-7.7) Lymphocytes # (Auto) 0.9 x10^3/uL (1.0-4.8) Monocytes # (Auto) 0.3 x10^3/uL (0.0-1.1) Eosinophils # (Auto) 0.1 x10^3/uL (0.0-0.7) Basophils # (Auto) 0.1 x10^3/uL (0.0-0.2) Sodium Level 146 mmol/L (136-145) Potassium Level 4.3 mmol/L (3.5-5.1) Chloride Level 104 mmol/L (98-107) Carbon Dioxide Level 32 mmol/L (21-32) Anion Gap 10 (6-14) Blood Urea Nitrogen 19 mg/dL (7-20) Creatinine 1.3 mg/dL (0.6-1.0) Estimated GFR (Cockcroft-Gault) 39.4 BUN/Creatinine Ratio 15 (6-20) Glucose Level 133 mg/dL (70-99) Calcium Level 8.3 mg/dL (8.5-10.1) Magnesium Level 1.7 mg/dL (1.8-2.4) Total Bilirubin 0.2 mg/dL (0.2-1.0) Aspartate Amino Transf (AST/SGOT) 15 U/L (15-37) Alanine Aminotransferase (ALT/SGPT) 20 U/L (14-59) Alkaline Phosphatase 88 U/L (46-116) Troponin I High Sensitivity 14 ng/L (4-50) RG-Qvf-X-Type Natriuretic Peptide 1245 pg/mL (0-449) Total Protein 7.3 g/dL (6.4-8.2) Albumin 3.1 g/dL (3.4-5.0) Albumin/Globulin Ratio 0.7 (1.0-1.7) Influenza Type A Antigen Negative (NEGATIVE) Influenza Type B Antigen Negative (NEGATIVE) SARS-CoV-2 Antigen (Rapid) Negative (NEGATIVE) Laboratory Tests Test 12/04/21 16:00 12/04/21 16:50 White Blood Count 4.4 x10^3/uL (4.0-11.0) Red Blood Count 3.24 x10^6/uL (3.50-5.40) Hemoglobin 10.1 g/dL (12.0-15.5) Hematocrit 30.6 % (36.0-47.0) Mean Corpuscular Volume 95 fL (79-100) Mean Corpuscular Hemoglobin 31 pg (25-35) Mean Corpuscular Hemoglobin Concent 33 g/dL (31-37) Red Cell Distribution Width 13.4 % (11.5-14.5) Platelet Count 213 x10^3/uL (140-400) Neutrophils (%) (Auto) 69 % (31-73) Lymphocytes (%) (Auto) 21 % (24-48) Monocytes (%) (Auto) 6 % (0-9) Eosinophils (%) (Auto) 3 % (0-3) Basophils (%) (Auto) 1 % (0-3) Neutrophils # (Auto) 3.1 x10^3/uL (1.8-7.7) Lymphocytes # (Auto) 0.9 x10^3/uL (1.0-4.8) Monocytes # (Auto) 0.3 x10^3/uL (0.0-1.1) Eosinophils # (Auto) 0.1 x10^3/uL (0.0-0.7) Basophils # (Auto) 0.1 x10^3/uL (0.0-0.2) Sodium Level 146 mmol/L (136-145) Potassium Level 4.3 mmol/L (3.5-5.1) Chloride Level 104 mmol/L (98-107) Carbon Dioxide Level 32 mmol/L (21-32) Anion Gap 10 (6-14) Blood Urea Nitrogen 19 mg/dL (7-20) Creatinine 1.3 mg/dL (0.6-1.0) Estimated GFR (Cockcroft-Gault) 39.4 BUN/Creatinine Ratio 15 (6-20) Glucose Level 133 mg/dL (70-99) Calcium Level 8.3 mg/dL (8.5-10.1) Magnesium Level 1.7 mg/dL (1.8-2.4) Total Bilirubin 0.2 mg/dL (0.2-1.0) Aspartate Amino Transf (AST/SGOT) 15 U/L (15-37) Alanine Aminotransferase (ALT/SGPT) 20 U/L (14-59) Alkaline Phosphatase 88 U/L (46-116) Troponin I High Sensitivity 14 ng/L (4-50) DL-Gtm-Q-Type Natriuretic Peptide 1245 pg/mL (0-449) Total Protein 7.3 g/dL (6.4-8.2) Albumin 3.1 g/dL (3.4-5.0) Albumin/Globulin Ratio 0.7 (1.0-1.7) Influenza Type A Antigen Negative (NEGATIVE) Influenza Type B Antigen Negative (NEGATIVE) SARS-CoV-2 Antigen (Rapid) Negative (NEGATIVE) Images: Images PROCEDURE: TIBIA FIBULA LEFT Exam: XR LT TIBIA + FIBULA History: Fall Comparison: None. Findings: Osseous mineralization is normal. No acute fracture or dislocaton. Degenerative changes of the knee with joint space narrowing and marginal osteophyte formation. No focal soft tissue swelling. Impression: 1. No acute osseous abnormality in the tibia and fibula. PROCEDURE: PORTABLE CHEST 1V AP chest. HISTORY: Dyspnea AP view was taken of the chest. There is a left pacemaker with atrial ventricular pacing leads. There are no confluent infiltrates. There is mild vascular congestion. IMPRESSION: 1. Heart upper normal in size. 2. Mild vascular congestion. 3. No confluent infiltrates. Assessment/Plan Assessment/Plan Hypertensive urgency Acute on chronic CHF exacerbation Elevated BNP likely due to volume overload History of diastolic CHF Coronary artery disease status post PCI - patent stents as of 1 year ago HTN - metoprolol and verapamil. May need to adjust meds HLD - statin DM2 - sliding scale insulin. Hold actos for now Anxiety - on zoloft History of TIA - stable on ASA, statin S/p dual chamber pacemaker - interrogated Admit to hospitalist service for further management Continue telemetry monitoring IV antihypertensive regimen to maintain systolic blood pressure between [id number] Strict I/O Monitor urine output Sodium and fluid restriction Encourage DASH diet IV Lasix daily as needed Cardiology consult Resume cardioprotective medications Heparin for DVT prophylaxis Protonix GI prophylaxis ADA diet CODE STATUS [full Discussed with RN and SW Disposition inpatient management as above DPOA: Son Justifications for Admission Other Justification NILO SANDERS MD Dec 04, 2021 19:23
[2021-12-04] MEDS ORDERED: diphenhydrAMINE 50 MG/ML VIAL IVP PRN (19:30)
[2021-12-04] MEDS ORDERED: SENNOSIDES 8.6 MG TABLET PO PRN (19:30)
[2021-12-04] MEDS ORDERED: LABETALOL 20 MG/4 ML DISP.SYRIN. IVP PRN (19:30)
[2021-12-04] MEDS ORDERED: ZOLPIDEM 5 MG TABLET. PO PRN (19:30)
[2021-12-04] MEDS ORDERED: hydrALAZINE 20 MG/ML VIAL. IVP PRN (19:30)
[2021-12-04] MEDS ORDERED: DEXTROSE 50% 25 GM / 50ML DISP.SYRIN. IV PRN (19:30)
[2021-12-04] MEDS ORDERED: ONDANSETRON PF 4 MG/2 ML VIAL. IVP PRN (19:30)
[2021-12-04] MEDS ORDERED: LORazepam 0.5 MG TABLET PO PRN (19:30)
[2021-12-04] MEDS ORDERED: diphenhydrAMINE HCL 25 MG CAPSULE PO PRN ×2 (19:30)
[2021-12-04] MEDS ORDERED: PROCHLORPERAZINE 10 MG/2 ML VIAL. IV PRN (19:30)
[2021-12-04] MEDS ORDERED: DOCUSATE SODIUM 100 MG CAPSULE. PO PRN (19:30)
[2021-12-04] MEDS ORDERED: BENZONATATE 100 MG CAPSULE. PO PRN (21:15)
[2021-12-04] MEDS ORDERED: DICYCLOMINE HCL 10 MG CAPSULE PO PRN (21:15)
[2021-12-04] MEDS ORDERED: traMADol 50 MG TABLET PO PRN (21:15)
[2021-12-04] MEDS: ENOXAPARIN 40 MG/0.4 ML SYRINGE. SQ SCH (22:47)
[2021-12-04 23:00] VITALS: BP 168/85
[2021-12-05] MEDS: ATORVASTATIN CALCIUM 40 MG TABLET. PO SCH ×2 (00:05→21:25)
[2021-12-05] MEDS: PRIMIDONE 50 MG TABLET PO SCH ×2 (00:05→21:26)
[2021-12-05] MEDS: ASPIRIN ENTERIC COATED 81 MG TABLET.DR. PO SCH ×2 (00:05→21:25)
[2021-12-05] MEDS: traZODone 50 MG TABLET. PO SCH ×2 (00:06→21:25)
[2021-12-05] MEDS: GABAPENTIN 300 MG CAPSULE. PO SCH ×4 (00:06→21:25)
[2021-12-05] MEDS: ACETAMINOPHEN 325 MG TABLET. PO PRN ×2 (00:08→21:33)
[2021-12-05 03:15] VITALS: BP 155/62
[2021-12-05 07:00] VITALS: BP 169/72
[2021-12-05] MEDS: LEVOTHYROXINE 112 MCG TABLET PO SCH (07:30)
--- NOTE | 2021-12-05 07:45 | EKG ---
[facility] [address] [place] [address] Test Date: 2021-12-04 Test Time: 15:49:29 Pat Name: REESE ERICKSON Department: Room: 536 1 Gender: F River Guide: : 1940 Requested By: GARLAND NAPOLES Order Number: [id number] Reading MD: Noah Jack MD Measurements Intervals [place] Rate: 75 P: 37 CO: 206 QRS: -1 QRSD: 128 T: 68 QT: 384 QTc: 431 Interpretive Statements SINUS RHYTHM PROBABLE V-PACED Electronically Signed On 12-05-2021 17:11:11 FURNITURE INSPECTOR by Noah Jack MD
[2021-12-05 07:52] LABS: BILIRUBIN,URINE NEGATIVE (NEG); CLARITY,URINE CLEAR; COLOR,URINE STRAW; NITRITE,URINE NEGATIVE (NEG); PROTEIN,URINE NEGATIVE (NEG-TRACE); UROBILINOGEN,URINE 0.2 mg/dL (0.2 mg/dL)
[2021-12-05 07:54] LABS: BACTERIA,URINE 0 /HPF (0-FEW); RBC,URINE 0 /HPF (0-2); WBC,URINE 20-40 /HPF (0-4)
[2021-12-05] MEDS ORDERED: ASPIRIN ENTERIC COATED 81 MG TABLET.DR. PO SCH (08:00)
[2021-12-05] MEDS: INSULIN LISPRO 300 UNITS/3 ML VIAL. SQ SCH ×3 (08:00→17:00)
[2021-12-05 08:04] LABS: BASO % 1 % (0-3); EOS # 0.1 x10^3/uL (0.0-0.7); EOS % 4 % (0-3); HEMATOCRIT 28.1 % (36.0-47.0); HEMOGLOBIN 9.1 g/dL (12.0-15.5); LYMPH # 1.1 x10^3/uL (1.0-4.8); LYMPH % 27 % (24-48); MEAN CORPUSCULAR HEMOGLOBIN 31 pg (25-35); MEAN CORPUSCULAR HGB CONC 32 g/dL (31-37); MEAN CORPUSCULAR VOLUME 96 fL (79-100); MONO # 0.3 x10^3/uL (0.0-1.1); MONO % 7 % (0-9); NEUT # 2.6 x10^3/uL (1.8-7.7); NEUT % 62 % (31-73); PLATELET COUNT 181 x10^3/uL (140-400); RED BLOOD COUNT 2.94 x10^6/uL (3.50-5.40); RED CELL DISTRIBUTION WIDTH 13.7 % (11.5-14.5); WHITE BLOOD COUNT 4.2 x10^3/uL (4.0-11.0)
[2021-12-05 08:19] LABS: CALCIUM 8.5 mg/dL (8.5-10.1); CREATININE 1.3 mg/dL (0.6-1.0); GFR 39.4; MAGNESIUM 1.8 mg/dL (1.8-2.4); PHOSPHORUS 3.8 mg/dL (2.6-4.7); POTASSIUM 3.6 mmol/L (3.5-5.1)
[2021-12-05] MEDS: LISINOPRIL 20 MG TABLET PO SCH (08:39)
[2021-12-05] MEDS: FOLIC ACID 1 MG TABLET. PO SCH (08:39)
[2021-12-05] MEDS: VERAPAMIL SR 120 MG TABLET.ER. PO SCH (08:39)
[2021-12-05] MEDS: METOPROLOL SUCC 24HR ER 100 MG TAB.ER.24H. PO SCH (08:40)
[2021-12-05] MEDS: SERTRALINE 50 MG TABLET. PO SCH (08:40)
[2021-12-05] MEDS ORDERED: GABAPENTIN 300 MG CAPSULE. PO SCH (09:00)
--- NOTE | 2021-12-05 10:53 | NUR ---
SW following. Discussed with RN, pt from home with family, room air, cardiac diet, flu and Rapid COVID-19 negative. PT/OT ordered. Cardiology following. RN advised no SW needs at this time. SW will continue to follow.
[2021-12-05 11:00] VITALS: BP 165/67
--- NOTE | 2021-12-05 11:08 | PDOC2 ---
MENDEZ YUN MEDIA PLANNER / BUYER 12/05/21 1108: CARDIAC CONSULT DATE OF CONSULT Date of Consult DATE: 12/05/21 TIME: 10:59 REASON FOR CONSULT Reason for Consult: CHF exacerbation REFERRING PHYSICIAN Referring Physician: Sam SOURCE Source: Chart review, Patient HISTORY OF PRESENT ILLNESS HISTORY OF PRESENT ILLNESS This is an 81 yo female admitted for complains of shortness of breath which has been ongoing for the past week at least.. Hs been having dry cough. Positive for orthopnea and PND. also with increasing leg swelling. She has gained 7# in the last month. She does have sharp pain mainly subcotal region from mid to left anterior chest. She fell the other day because her left knee got weak. No associated presyncopal symptoms and no apparent injury. No fever or chills. Denies any palpitations. PAST MEDICAL HISTORY Past Medical History Cardiovascular: CAD (with stenting ), HTN, [place], Hyperlipidemia, Other (SSS s/p pacemaker with recent generator change with [facility] Juan R), murmur ) Pulmonary: COPD CENTRAL NERVOUS SYSTEM: Peripheral neuropathy GI: GERD Heme/Onc: No pertinent hx Hepatobiliary: No pertinent hx Psych: No pertinent hx Musculoskeletal: Osteoarthritis Infectious disease: No pertinent hx ENT: No pertinent hx Renal/: No pertinent hx Endocrine: Diabetes, Hypothyroidism Dermatology: No pertinent hx PAST SURGICAL HISTORY Past Surgical History Pacemaker, Appendectomy, Cholecystectomy, Tonsillectomy, Hysterectomy, PCI/stent FAMILY HISTORY Family History: Coronary Artery Disease SOCIAL HISTORY Smoke: No ALCOHOL: none Drugs: None Lives: with Family CURRENT MEDICATIONS CURRENT MEDICATIONS Current Medications Medications (Trade) Dose Ordered Sig/Eloisa Route PRN Reason Start Time Stop Time Status Last Admin Dose Admin Nitroglycerin (Nitro-Bid Oint) 1 inch 1X ONCE TP 12/04/21 16:15 12/04/21 16:16 DC 12/04/21 16:15 Aspirin (Ecotrin) 325 mg 1X ONCE PO 12/04/21 16:15 12/04/21 16:16 DC 12/04/21 16:15 Furosemide (Lasix) 20 mg 1X ONCE IVP 12/04/21 19:15 12/04/21 19:16 DC 12/04/21 19:42 Acetaminophen (Tylenol) 650 mg PRN Q4HRS PRN PO TEMP OVER 100.4F OR MILD PAIN 12/04/21 19:30 12/05/21 00:08 Enoxaparin Sodium (Lovenox 40mg Syringe) 40 mg Q24H SQ 12/04/21 21:00 12/04/21 22:47 Levothyroxine Sodium (Synthroid) 112 mcg DAILYAC PO 12/05/21 07:30 12/05/21 07:30 Lisinopril (Prinivil) 20 mg DAILY PO 12/05/21 09:00 12/05/21 08:39 Metoprolol Succinate (Toprol Xl) 100 mg DAILY PO 12/05/21 09:00 12/05/21 08:40 Folic Acid (Folic Acid) 1 mg DAILY PO 12/05/21 09:00 12/05/21 08:39 Sertraline HCl (Zoloft) 100 mg DAILY PO 12/05/21 09:00 12/05/21 08:40 Verapamil HCl (Calan Sr) 240 mg DAILY PO 12/05/21 09:00 12/05/21 08:39 Aspirin (Ecotrin) 81 mg HS PO 12/04/21 23:15 12/05/21 00:05 Atorvastatin Calcium (Lipitor) 40 mg QHS PO 12/04/21 23:15 12/05/21 00:05 Gabapentin (Neurontin) 300 mg TID PO 12/04/21 23:15 12/05/21 08:39 Trazodone HCl (Desyrel) 50 mg HS PO 12/04/21 23:15 12/05/21 00:06 Primidone (Mysoline) 150 mg HS PO 12/04/21 23:15 12/05/21 00:05 ALLERGIES ALLERGIES: Coded Allergies: Iodinated Contrast Media (Verified Allergy, Intermediate, FLU SYMPTOMS, NASAL CONGESTION, 12/04/21) REACTION WAS 40 YEARS AGO. NO ALLERGY TO BETADINE, [place] WITH BENADRYL PRIOR Tetracyclines (Verified Allergy, Intermediate, 12/04/21) codeine (Verified Allergy, Intermediate, 12/04/21) nitrofurantoin (Verified Allergy, Intermediate, 12/04/21) tetrabenazine (Verified Allergy, Intermediate, 12/04/21) morphine (Verified Adverse Reaction, Intermediate, HALLUCINATIONS, 12/04/21) ROS Review of System 14 point ROS evaluated with pertinent positives noted per HPI PHYSICAL EXAM General: Alert, Oriented X3, Cooperative, No acute distress HEENT: Atraumatic, Mucous membr. moist/pink Lungs: Other (basilar crackles) Heart: Regular rate (Sr with intermittent pacing), Normal S1, Normal S2, Other (distant heart sounds) Abdomen: Soft, No tenderness, Other (obese) Extremities: No cyanosis, Other (1+ bilateral LE pitting edema) Skin: No breakdown, No significant lesion Neuro: Normal speech, Sensation intact Psych/Mental Status: Mental status NL, Mood NL MUSCULOSKELETAL: Osteoarthritic changes both hands VITALS/I&O VITALS/I&O: Vital Signs Date Time Temp Pulse Resp B/P (MAP) Pulse Ox O2 Delivery O2 Flow Rate FiO2 12/05/21 08:40 56 169/72 12/05/21 07:00 97.8 18 92 Room Air 97.8 LABS Lab: Laboratory Tests Test 12/04/21 16:00 12/04/21 16:50 12/05/21 06:30 12/05/21 07:00 White Blood Count 4.4 x10^3/uL (4.0-11.0) 4.2 x10^3/uL (4.0-11.0) Red Blood Count 3.24 x10^6/uL (3.50-5.40) L 2.94 x10^6/uL (3.50-5.40) L Hemoglobin 10.1 g/dL (12.0-15.5) L 9.1 g/dL (12.0-15.5) L Hematocrit 30.6 % (36.0-47.0) L 28.1 % (36.0-47.0) L Mean Corpuscular Volume 95 fL (79-100) 96 fL (79-100) Mean Corpuscular Hemoglobin 31 pg (25-35) 31 pg (25-35) Mean Corpuscular Hemoglobin Concent 33 g/dL (31-37) 32 g/dL (31-37) Red Cell Distribution Width 13.4 % (11.5-14.5) 13.7 % (11.5-14.5) Platelet Count 213 x10^3/uL (140-400) 181 x10^3/uL (140-400) Neutrophils (%) (Auto) 69 % (31-73) 62 % (31-73) Lymphocytes (%) (Auto) 21 % (24-48) L 27 % (24-48) Monocytes (%) (Auto) 6 % (0-9) 7 % (0-9) Eosinophils (%) (Auto) 3 % (0-3) 4 % (0-3) H Basophils (%) (Auto) 1 % (0-3) 1 % (0-3) Neutrophils # (Auto) 3.1 x10^3/uL (1.8-7.7) 2.6 x10^3/uL (1.8-7.7) Lymphocytes # (Auto) 0.9 x10^3/uL (1.0-4.8) L 1.1 x10^3/uL (1.0-4.8) Monocytes # (Auto) 0.3 x10^3/uL (0.0-1.1) 0.3 x10^3/uL (0.0-1.1) Eosinophils # (Auto) 0.1 x10^3/uL (0.0-0.7) 0.1 x10^3/uL (0.0-0.7) Basophils # (Auto) 0.1 x10^3/uL (0.0-0.2) 0.0 x10^3/uL (0.0-0.2) Sodium Level 146 mmol/L (136-145) H 146 mmol/L (136-145) H Potassium Level 4.3 mmol/L (3.5-5.1) 3.6 mmol/L (3.5-5.1) Chloride Level 104 mmol/L (98-107) 104 mmol/L (98-107) Carbon Dioxide Level 32 mmol/L (21-32) 33 mmol/L (21-32) H Anion Gap 10 (6-14) 9 (6-14) Blood Urea Nitrogen 19 mg/dL (7-20) 18 mg/dL (7-20) Creatinine 1.3 mg/dL (0.6-1.0) H 1.3 mg/dL (0.6-1.0) H Estimated GFR (Cockcroft-Gault) 39.4 39.4 BUN/Creatinine Ratio 15 (6-20) Glucose Level 133 mg/dL (70-99) H 106 mg/dL (70-99) H Calcium Level 8.3 mg/dL (8.5-10.1) L 8.5 mg/dL (8.5-10.1) Magnesium Level 1.7 mg/dL (1.8-2.4) L 1.8 mg/dL (1.8-2.4) Total Bilirubin 0.2 mg/dL (0.2-1.0) Aspartate Amino Transferase (AST) 15 U/L (15-37) Alanine Aminotransferase (ALT) 20 U/L (14-59) Alkaline Phosphatase 88 U/L (46-116) Troponin I High Sensitivity 14 ng/L (4-50) UH-Ocy-J-Type Natriuretic Peptide 1245 pg/mL (0-449) H Total Protein 7.3 g/dL (6.4-8.2) Albumin 3.1 g/dL (3.4-5.0) L Albumin/Globulin Ratio 0.7 (1.0-1.7) L Influenza Type A Antigen Negative (NEGATIVE) Influenza Type B Antigen Negative (NEGATIVE) SARS-CoV-2 Antigen (Rapid) Negative (NEGATIVE) Urine Collection Type Unknown Urine Color Straw Urine Clarity Clear Urine pH 6.0 (<5.0-8.0) Urine Specific Grant <=1.005 (1.000-1.030) Urine Protein Negative mg/dL (NEG-TRACE) Urine Glucose (UA) Negative mg/dL (NEG) Urine Ketones (Stick) Negative mg/dL (NEG) Urine Blood Negative (NEG) Urine Nitrite Negative (NEG) Urine Bilirubin Negative (NEG) Urine Urobilinogen Dipstick 0.2 mg/dL (0.2 mg/dL) Urine Leukocyte Esterase Moderate (NEG) Urine RBC 0 /HPF (0-2) Urine WBC 20-40 /HPF (0-4) Urine Squamous Epithelial Cells Mod /LPF Urine Renal Epithelial Cells Few /LPF Urine Bacteria 0 /HPF (0-FEW) Phosphorus Level 3.8 mg/dL (2.6-4.7) Test 12/05/21 07:37 Glucose (Fingerstick) 113 mg/dL (70-99) H Laboratory Tests 12/04/21 16:00 12/05/21 07:00 Laboratory Tests 12/04/21 16:00 12/05/21 07:00 ECHOCARDIOGRAM ECHOCARDIOGRAM CONCLUSION 1. The left ventricular systolic function is normal. 2. The ejection fraction is 60-65%. 3. There is normal LV segmental wall motion. 4. Transmitral Doppler flow pattern is Grade I-abnormal relaxation pattern. 5. Pacemaker wire noted in RV/RA. 6. Mild aortic regurgitation. 7. Trace to mild mitral regurgitation. 8. Trace tricuspid regurgitation. 9. There is no evidence of significant pericardial effusion. Signed by: Deion Soto, Electronically Approved: 04/16/2021 10:22:14 DATE: 04/16/21 [id number] HEART CATH HEART CATH Coronary angiography: LM: Large caliber vessel with a distal 20% stenosis LAD: Large caliber vessel with patent proximal stent. D1: Small caliber vessel with ostial 95% stenosis and a distal subtotal occlusion. There is an apical LAD collateral feeding the inferior branch. Ramus is a moderate to large caliber vessel with mild luminal irregularities LCX: Moderate caliber non-dominant vessel with mild luminal irregularities LPL1: Small caliber vessel with mild luminal irregularities RCA: Large caliber dominant vessel with patent proximal and mid stents. There is less than 20% in-stent restenosis in the midportion. RPDA: Moderate caliber vessel with mild luminal irregularities. CLOSURE: At case completion the left radial sheath was removed and a Terumo radial band was applied with 11 mL of air. Hemostasis was achieved. COMPLICATIONS: No acute complications noted Conclusion 1. Normal left-sided filling pressures 2. Two-vessel coronary artery disease with patent stents in the LAD and RCA unchanged from prior catheterization in 2017 Recommendations Aggressive Medical Therapy DATE: 02/14/21 [id number] 0 ASSESSMENT/PLAN ASSESSMENT/PLAN 1. Acute on chronic diastolic CHF 2. CKD3 3. GERD 4. CAD: past stents, clinically stable 5. SSS/PPM in situ: [facility]. Juan R currently Vpaced with hx of SSS 6. HLP 7. HTN urgency 8. Hypothyroidism: on replacement 9. Nontraumatic mechanical fall: due to left knee weakness 10. Atypical CP: MSK Recommendations 1. Continue with secondary prevention measures 2. Lasix 3. Resume home BP regimen CATHLEEN ZENDEJAS MD 12/05/21 1712: CARDIAC CONSULT ASSESSMENT/PLAN ASSESSMENT/PLAN Pt. seen and examined. 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 Probable etiology of dyspnea and HF is uncontrolled BP. Will continue BP mgmt. Outpt ischemic evaluation. MENDEZ YUN APRN Dec 05, 2021 11:08 CATHLEEN ZENDEJAS MD Dec 05, 2021 17:12
[2021-12-05] MEDS ORDERED: FUROSEMIDE 40 MG/4 ML VIAL. IVP ONE (12:15)
--- NOTE | 2021-12-05 14:03 | PDOC ---
[facility] [facility] PROGRESS NOTE Date of Service DOS: DATE: 12/05/21 TIME: 14:01 Chief Complaint Chief Complaint Assessment/Plan Hypertensive urgency Acute on chronic CHF exacerbation Elevated BNP likely due to volume overload History of diastolic CHF Coronary artery disease status post PCI - patent stents as of 1 year ago HTN - metoprolol and verapamil. May need to adjust meds HLD - statin DM2 - sliding scale insulin. Hold actos for now Anxiety - on zoloft History of TIA - stable on ASA, statin S/p dual chamber pacemaker - interrogated Admit to hospitalist service for further management Continue telemetry monitoring IV antihypertensive regimen to maintain systolic blood pressure between [id number] Strict I/O Monitor urine output Sodium and fluid restriction Encourage DASH diet IV Lasix daily as needed Cardiology consult Resume cardioprotective medications Heparin for DVT prophylaxis Protonix GI prophylaxis ADA diet CODE STATUS [full Discussed with RN and SW Disposition inpatient management as above DPOA: Son History of Present Illness History of Present Illness 81-year-old female with past medical history of CAD, COPD, depression, diabetes mellitus type 2, hypothyroidism, and diastolic CHF comes in with shortness of breath. Patient states she has been compliant with her all her medications. Unfortunately she has not been noncompliant with her diet and she has likely eat a lot of salty foods. She lives with her 2 sons that mainly cooks and buys food for her. Denies any lower extremity swelling. Denies fevers, chest pain, palpitations or syncope. Patient does endorse orthopnea at night. 12/05/2021 No acute events overnight. Patient seen examined bedside. Blood pressures are better controlled. Afebrile. Vitals/I&O Vitals/I&O: Vital Signs Date Time Temp Pulse Resp B/P (MAP) Pulse Ox O2 Delivery O2 Flow Rate FiO2 12/05/21 11:00 97.9 66 18 165/67 (99) 94 97.9 12/05/21 07:00 Room Air Physical Exam General: Alert, Oriented X3, Cooperative, No acute distress Heart: Regular rate (Sr with intermittent pacing), Normal S1, Normal S2, Other (distant heart sounds) Lungs: Clear Abdomen: Soft, No tenderness, Other (obese) Extremities: No cyanosis, Other (1+ bilateral LE pitting edema) Skin: No breakdown, No significant lesion Labs Labs: Laboratory Tests Test 12/04/21 16:00 12/04/21 16:50 12/05/21 06:30 12/05/21 07:00 White Blood Count 4.4 x10^3/uL (4.0-11.0) 4.2 x10^3/uL (4.0-11.0) Red Blood Count 3.24 x10^6/uL (3.50-5.40) 2.94 x10^6/uL (3.50-5.40) Hemoglobin 10.1 g/dL (12.0-15.5) 9.1 g/dL (12.0-15.5) Hematocrit 30.6 % (36.0-47.0) 28.1 % (36.0-47.0) Mean Corpuscular Volume 95 fL (79-100) 96 fL (79-100) Mean Corpuscular Hemoglobin 31 pg (25-35) 31 pg (25-35) Mean Corpuscular Hemoglobin Concent 33 g/dL (31-37) 32 g/dL (31-37) Red Cell Distribution Width 13.4 % (11.5-14.5) 13.7 % (11.5-14.5) Platelet Count 213 x10^3/uL (140-400) 181 x10^3/uL (140-400) Neutrophils (%) (Auto) 69 % (31-73) 62 % (31-73) Lymphocytes (%) (Auto) 21 % (24-48) 27 % (24-48) Monocytes (%) (Auto) 6 % (0-9) 7 % (0-9) Eosinophils (%) (Auto) 3 % (0-3) 4 % (0-3) Basophils (%) (Auto) 1 % (0-3) 1 % (0-3) Neutrophils # (Auto) 3.1 x10^3/uL (1.8-7.7) 2.6 x10^3/uL (1.8-7.7) Lymphocytes # (Auto) 0.9 x10^3/uL (1.0-4.8) 1.1 x10^3/uL (1.0-4.8) Monocytes # (Auto) 0.3 x10^3/uL (0.0-1.1) 0.3 x10^3/uL (0.0-1.1) Eosinophils # (Auto) 0.1 x10^3/uL (0.0-0.7) 0.1 x10^3/uL (0.0-0.7) Basophils # (Auto) 0.1 x10^3/uL (0.0-0.2) 0.0 x10^3/uL (0.0-0.2) Sodium Level 146 mmol/L (136-145) 146 mmol/L (136-145) Potassium Level 4.3 mmol/L (3.5-5.1) 3.6 mmol/L (3.5-5.1) Chloride Level 104 mmol/L (98-107) 104 mmol/L (98-107) Carbon Dioxide Level 32 mmol/L (21-32) 33 mmol/L (21-32) Anion Gap 10 (6-14) 9 (6-14) Blood Urea Nitrogen 19 mg/dL (7-20) 18 mg/dL (7-20) Creatinine 1.3 mg/dL (0.6-1.0) 1.3 mg/dL (0.6-1.0) Estimated GFR (Cockcroft-Gault) 39.4 39.4 BUN/Creatinine Ratio 15 (6-20) Glucose Level 133 mg/dL (70-99) 106 mg/dL (70-99) Calcium Level 8.3 mg/dL (8.5-10.1) 8.5 mg/dL (8.5-10.1) Magnesium Level 1.7 mg/dL (1.8-2.4) 1.8 mg/dL (1.8-2.4) Total Bilirubin 0.2 mg/dL (0.2-1.0) Aspartate Amino Transf (AST/SGOT) 15 U/L (15-37) Alanine Aminotransferase (ALT/SGPT) 20 U/L (14-59) Alkaline Phosphatase 88 U/L (46-116) Troponin I High Sensitivity 14 ng/L (4-50) CF-Goj-I-Type Natriuretic Peptide 1245 pg/mL (0-449) Total Protein 7.3 g/dL (6.4-8.2) Albumin 3.1 g/dL (3.4-5.0) Albumin/Globulin Ratio 0.7 (1.0-1.7) Influenza Type A Antigen Negative (NEGATIVE) Influenza Type B Antigen Negative (NEGATIVE) SARS-CoV-2 Antigen (Rapid) Negative (NEGATIVE) Urine Collection Type Unknown Urine Color Straw Urine Clarity Clear Urine pH 6.0 (<5.0-8.0) Urine Specific [place] <=1.005 (1.000-1.030) Urine Protein Negative mg/dL (NEG-TRACE) Urine Glucose (UA) Negative mg/dL (NEG) Urine Ketones (Stick) Negative mg/dL (NEG) Urine Blood Negative (NEG) Urine Nitrite Negative (NEG) Urine Bilirubin Negative (NEG) Urine Urobilinogen Dipstick 0.2 mg/dL (0.2 mg/dL) Urine Leukocyte Esterase Moderate (NEG) Urine RBC 0 /HPF (0-2) Urine WBC 20-40 /HPF (0-4) Urine Squamous Epithelial Cells Mod /LPF Urine Renal Epithelial Cells Few /LPF Urine Bacteria 0 /HPF (0-FEW) Phosphorus Level 3.8 mg/dL (2.6-4.7) Test 12/05/21 07:37 12/05/21 11:54 Glucose (Fingerstick) 113 mg/dL (70-99) 139 mg/dL (70-99) Assessment and Plan Assessmemt and Plan Problems Medical Problems: (1) Congestive heart failure Status: Acute (2) Hypertensive emergency Status: Acute Comment Review of Relevant I have reviewed the following items donna (where applicable) has been applied. Medications: Current Medications Medications (Trade) Dose Ordered Sig/Eloisa Route PRN Reason Start Time Stop Time Status Last Admin Dose Admin Nitroglycerin (Nitro-Bid Oint) 1 inch 1X ONCE TP 12/04/21 16:15 12/04/21 16:16 DC 12/04/21 16:15 Aspirin (Ecotrin) 325 mg 1X ONCE PO 12/04/21 16:15 12/04/21 16:16 DC 12/04/21 16:15 Furosemide (Lasix) 20 mg 1X ONCE IVP 12/04/21 19:15 12/04/21 19:16 DC 12/04/21 19:42 Acetaminophen (Tylenol) 650 mg PRN Q4HRS PRN PO TEMP OVER 100.4F OR MILD PAIN 12/04/21 19:30 12/05/21 00:08 Enoxaparin Sodium (Lovenox 40mg Syringe) 40 mg Q24H SQ 12/04/21 21:00 12/04/21 22:47 Levothyroxine Sodium (Synthroid) 112 mcg DAILYAC PO 12/05/21 07:30 12/05/21 07:30 Lisinopril (Prinivil) 20 mg DAILY PO 12/05/21 09:00 12/05/21 08:39 Metoprolol Succinate (Toprol Xl) 100 mg DAILY PO 12/05/21 09:00 12/05/21 08:40 Folic Acid (Folic Acid) 1 mg DAILY PO 12/05/21 09:00 12/05/21 08:39 Sertraline HCl (Zoloft) 100 mg DAILY PO 12/05/21 09:00 12/05/21 08:40 Verapamil HCl (Calan Sr) 240 mg DAILY PO 12/05/21 09:00 12/05/21 08:39 Aspirin (Ecotrin) 81 mg HS PO 12/04/21 23:15 12/05/21 00:05 Atorvastatin Calcium (Lipitor) 40 mg QHS PO 12/04/21 23:15 12/05/21 00:05 Gabapentin (Neurontin) 300 mg TID PO 12/04/21 23:15 12/05/21 13:43 Trazodone HCl (Desyrel) 50 mg HS PO 12/04/21 23:15 12/05/21 00:06 Primidone (Mysoline) 150 mg HS PO 12/04/21 23:15 12/05/21 00:05 Furosemide (Lasix) 40 mg 1X ONCE IVP 12/05/21 12:15 12/05/21 12:16 DC 12/05/21 12:45 Justifications for Admission Other Justification Hypertensive urgency NILO SANDERS MD Dec 05, 2021 14:03
[2021-12-05 15:00] VITALS: BP 166/70
[2021-12-05 19:00] VITALS: BP 165/76
[2021-12-05] MEDS ORDERED: ATORVASTATIN CALCIUM 40 MG TABLET. PO SCH (21:00)
[2021-12-05] MEDS ORDERED: traZODone 50 MG TABLET. PO SCH (21:00)
[2021-12-05] MEDS: ENOXAPARIN 40 MG/0.4 ML SYRINGE. SQ SCH (21:25)
[2021-12-05] MEDS: THIAMINE 100 MG TABLET. PO SCH (21:28)
[2021-12-05 23:53] VITALS: BP 153/60
[2021-12-06] VITALS (7 sets, daily range): BP systolic 142–182; BP diastolic 52–76
[2021-12-06 06:43] LABS: CALCIUM 8.8 mg/dL (8.5-10.1); CREATININE 1.5 mg/dL (0.6-1.0); GFR 33.4; MAGNESIUM 1.7 mg/dL (1.8-2.4); POTASSIUM 3.5 mmol/L (3.5-5.1)
[2021-12-06 06:57] LABS: BASO % 1 % (0-3); EOS # 0.2 x10^3/uL (0.0-0.7); EOS % 4 % (0-3); HEMATOCRIT 29.3 % (36.0-47.0); HEMOGLOBIN 9.5 g/dL (12.0-15.5); LYMPH # 1.1 x10^3/uL (1.0-4.8); LYMPH % 27 % (24-48); MEAN CORPUSCULAR HEMOGLOBIN 31 pg (25-35); MEAN CORPUSCULAR HGB CONC 32 g/dL (31-37); MEAN CORPUSCULAR VOLUME 95 fL (79-100); MONO # 0.3 x10^3/uL (0.0-1.1); MONO % 7 % (0-9); NEUT # 2.6 x10^3/uL (1.8-7.7); NEUT % 62 % (31-73); PLATELET COUNT 185 x10^3/uL (140-400); RED BLOOD COUNT 3.09 x10^6/uL (3.50-5.40); RED CELL DISTRIBUTION WIDTH 13.3 % (11.5-14.5); WHITE BLOOD COUNT 4.2 x10^3/uL (4.0-11.0)
[2021-12-06] MEDS: INSULIN LISPRO 300 UNITS/3 ML VIAL. SQ SCH ×3 (08:00→17:00)
[2021-12-06] MEDS: VERAPAMIL SR 120 MG TABLET.ER. PO SCH (08:55)
[2021-12-06] MEDS: METOPROLOL SUCC 24HR ER 100 MG TAB.ER.24H. PO SCH (08:56)
[2021-12-06] MEDS: SERTRALINE 50 MG TABLET. PO SCH (08:56)
[2021-12-06] MEDS: THIAMINE 100 MG TABLET. PO SCH (08:56)
[2021-12-06] MEDS: FOLIC ACID 1 MG TABLET. PO SCH (08:56)
[2021-12-06] MEDS: LEVOTHYROXINE 112 MCG TABLET PO SCH (08:56)
[2021-12-06] MEDS: GABAPENTIN 300 MG CAPSULE. PO SCH ×3 (08:57→20:33)
[2021-12-06] MEDS: LISINOPRIL 20 MG TABLET PO SCH (08:57)
[2021-12-06] MEDS: ACETAMINOPHEN 325 MG TABLET. PO PRN ×2 (09:02→20:43)
--- NOTE | 2021-12-06 11:15 | PDOC ---
MENDEZ YUN SNUBBER 12/06/21 1115: CARDIO Progress Notes Date and Time Date of Service 12/06/2021 Time of Evaluation 1050 Subjective Subjective: No Chest Pain, No shortness of breath, No Palpitations Vitals Vitals Vital Signs Date Time Temp Pulse Resp B/P (MAP) Pulse Ox O2 Delivery O2 Flow Rate FiO2 12/06/21 08:57 63 175/76 12/06/21 07:00 97.7 20 94 97.7 12/06/21 03:56 Room Air Weight Weight [ ] Laboratory Labs Laboratory Tests Test 12/05/21 11:54 12/05/21 16:52 12/06/21 05:30 12/06/21 07:52 Glucose (Fingerstick) 139 mg/dL (70-99) 127 mg/dL (70-99) 115 mg/dL (70-99) White Blood Count 4.2 x10^3/uL (4.0-11.0) Red Blood Count 3.09 x10^6/uL (3.50-5.40) Hemoglobin 9.5 g/dL (12.0-15.5) Hematocrit 29.3 % (36.0-47.0) Mean Corpuscular Volume 95 fL (79-100) Mean Corpuscular Hemoglobin 31 pg (25-35) Mean Corpuscular Hemoglobin Concent 32 g/dL (31-37) Red Cell Distribution Width 13.3 % (11.5-14.5) Platelet Count 185 x10^3/uL (140-400) Neutrophils (%) (Auto) 62 % (31-73) Lymphocytes (%) (Auto) 27 % (24-48) Monocytes (%) (Auto) 7 % (0-9) Eosinophils (%) (Auto) 4 % (0-3) Basophils (%) (Auto) 1 % (0-3) Neutrophils # (Auto) 2.6 x10^3/uL (1.8-7.7) Lymphocytes # (Auto) 1.1 x10^3/uL (1.0-4.8) Monocytes # (Auto) 0.3 x10^3/uL (0.0-1.1) Eosinophils # (Auto) 0.2 x10^3/uL (0.0-0.7) Basophils # (Auto) 0.0 x10^3/uL (0.0-0.2) Sodium Level 144 mmol/L (136-145) Potassium Level 3.5 mmol/L (3.5-5.1) Chloride Level 100 mmol/L (98-107) Carbon Dioxide Level 34 mmol/L (21-32) Anion Gap 10 (6-14) Blood Urea Nitrogen 19 mg/dL (7-20) Creatinine 1.5 mg/dL (0.6-1.0) Estimated GFR (Cockcroft-Gault) 33.4 Glucose Level 114 mg/dL (70-99) Calcium Level 8.8 mg/dL (8.5-10.1) Magnesium Level 1.7 mg/dL (1.8-2.4) Microbiology Micro Microbiology 12/05/21 Urine Culture - Preliminary, Resulted Escherichia Coli Physical Exam HEENT: Neck Supple W Full Motion Chest: Symmetric LUNGS: Other (diminished) Abdomen: Soft N/T Extremities: No Calf Tenderness Neurology: alert, oriented, follow commands Assessment Assessment 1. Acute on chronic diastolic CHF: compensated 2. CKD3 3. GERD 4. CAD: past stents, clinically stable 5. SSS/PPM in situ: [facility] currently Vpaced with hx of SSS 6. HLP 7. HTN urgency: labile 8. Hypothyroidism: on replacement 9. Nontraumatic mechanical fall: due to left knee weakness 10. Atypical CP: MSK Recommendations 1. Continue with secondary prevention measures 2. Resume home BP regimen. Increase lisinopril and add HCTZ Justicifation of Admission Dx: Justifications for Admission: Justification of Admission Dx: Yes CATHLEEN ZENDEJAS MD 12/06/21 1640: CARDIO Progress Notes Plan Plan The patient was seen and interviewed as well as examined at the bedside. The chart was reviewed. The case was discussed. Agree with the plan of care. MENDEZ YUN APRN Dec 06, 2021 11:15 CATHLEEN ZENDEJAS MD Dec 06, 2021 16:40
--- NOTE | 2021-12-06 11:45 | PDOC ---
[facility] [facility] PROGRESS NOTE Date of Service DOS: DATE: 12/06/21 TIME: 11:44 Chief Complaint Chief Complaint Assessment/Plan Hypertensive urgency Acute on chronic CHF exacerbation Elevated BNP likely due to volume overload History of diastolic CHF Coronary artery disease status post PCI - patent stents as of 1 year ago HTN - metoprolol and verapamil. May need to adjust meds HLD - statin DM2 - sliding scale insulin. Hold actos for now Anxiety - on zoloft History of TIA - stable on ASA, statin S/p dual chamber pacemaker - interrogated Admit to hospitalist service for further management Continue telemetry monitoring IV antihypertensive regimen to maintain systolic blood pressure between [id number] Strict I/O Monitor urine output Sodium and fluid restriction Encourage DASH diet IV Lasix daily as needed Cardiology consult Resume cardioprotective medications Heparin for DVT prophylaxis Protonix GI prophylaxis ADA diet CODE STATUS [full Discussed with RN and SW Disposition inpatient management as above DPOA: Son History of Present Illness History of Present Illness 12/07/2019 Patient seen and examined Discussed with RN Chart reviewed Discussed with case management Blood pressures are still in the 170s Hope to discharge tomorrow 81-year-old female with past medical history of CAD, COPD, depression, diabetes mellitus type 2, hypothyroidism, and diastolic CHF comes in with shortness of breath. Patient states she has been compliant with her all her medications. Unfortunately she has not been noncompliant with her diet and she has likely eat a lot of salty foods. She lives with her 2 sons that mainly cooks and buys food for her. Denies any lower extremity swelling. Denies fevers, chest pain, palpitations or syncope. Patient does endorse orthopnea at night. 12/05/2021 No acute events overnight. Patient seen examined bedside. Blood pressures are better controlled. Afebrile. Vitals/I&O Vitals/I&O: Vital Signs Date Time Temp Pulse Resp B/P (MAP) Pulse Ox O2 Delivery O2 Flow Rate FiO2 12/06/21 08:57 63 175/76 12/06/21 07:00 97.7 20 94 97.7 12/06/21 03:56 Room Air Physical Exam General: No acute distress, Other (Appears comfortable/sleeping) Heart: Regular rate (Sr with intermittent pacing), Normal S1, Normal S2, Other (distant heart sounds) Lungs: Clear Abdomen: Soft, No tenderness, Other (obese) Extremities: No cyanosis, Other (1+ bilateral LE pitting edema) Skin: No breakdown, No significant lesion Labs Labs: Laboratory Tests Test 12/05/21 11:54 12/05/21 16:52 12/06/21 05:30 12/06/21 07:52 Glucose (Fingerstick) 139 mg/dL (70-99) 127 mg/dL (70-99) 115 mg/dL (70-99) White Blood Count 4.2 x10^3/uL (4.0-11.0) Red Blood Count 3.09 x10^6/uL (3.50-5.40) Hemoglobin 9.5 g/dL (12.0-15.5) Hematocrit 29.3 % (36.0-47.0) Mean Corpuscular Volume 95 fL (79-100) Mean Corpuscular Hemoglobin 31 pg (25-35) Mean Corpuscular Hemoglobin Concent 32 g/dL (31-37) Red Cell Distribution Width 13.3 % (11.5-14.5) Platelet Count 185 x10^3/uL (140-400) Neutrophils (%) (Auto) 62 % (31-73) Lymphocytes (%) (Auto) 27 % (24-48) Monocytes (%) (Auto) 7 % (0-9) Eosinophils (%) (Auto) 4 % (0-3) Basophils (%) (Auto) 1 % (0-3) Neutrophils # (Auto) 2.6 x10^3/uL (1.8-7.7) Lymphocytes # (Auto) 1.1 x10^3/uL (1.0-4.8) Monocytes # (Auto) 0.3 x10^3/uL (0.0-1.1) Eosinophils # (Auto) 0.2 x10^3/uL (0.0-0.7) Basophils # (Auto) 0.0 x10^3/uL (0.0-0.2) Sodium Level 144 mmol/L (136-145) Potassium Level 3.5 mmol/L (3.5-5.1) Chloride Level 100 mmol/L (98-107) Carbon Dioxide Level 34 mmol/L (21-32) Anion Gap 10 (6-14) Blood Urea Nitrogen 19 mg/dL (7-20) Creatinine 1.5 mg/dL (0.6-1.0) Estimated GFR (Cockcroft-Gault) 33.4 Glucose Level 114 mg/dL (70-99) Calcium Level 8.8 mg/dL (8.5-10.1) Magnesium Level 1.7 mg/dL (1.8-2.4) Assessment and Plan Assessmemt and Plan Problems Medical Problems: (1) Congestive heart failure Status: Acute (2) Hypertensive emergency Status: Acute Hypertensive urgency Acute on chronic CHF exacerbation Elevated BNP likely due to volume overload History of diastolic CHF Coronary artery disease status post PCI - patent stents as of 1 year ago HTN - metoprolol and verapamil. May need to adjust meds HLD - statin DM2 - sliding scale insulin. Hold actos for now Anxiety - on zoloft History of TIA - stable on ASA, statin S/p dual chamber pacemaker - interrogated Plan Continue cardiac monitoring We are adjusting her blood pressure meds (on hydralazine lisinopril hydrochlorothiazide verapamil metoprolol and as needed labetalol) Home meds DVT prophylaxis Full code PT OT Encourage p.o. intake Appreciate cardiology input Hope to discharge tomorrow if she is improved Comment Review of Relevant I have reviewed the following items donna (where applicable) has been applied. Medications: Current Medications Medications (Trade) Dose Ordered Sig/Eloisa Route PRN Reason Start Time Stop Time Status Last Admin Dose Admin Thiamine Mononitrate (Vitamin B-1) 300 mg DAILY PO 12/05/21 21:00 12/06/21 08:56 Furosemide (Lasix) 40 mg 1X ONCE IVP 12/05/21 12:15 12/05/21 12:16 DC 12/05/21 12:45 Justifications for Admission Other Justification Hypertensive urgency DARRYL WEEKS III DO Dec 06, 2021 11:45
[2021-12-06] MEDS ORDERED: LISINOPRIL 10 MG TABLET PO ONE (12:00)
[2021-12-06] MEDS ORDERED: hydroCHLOROthiazide 12.5 MG CAPSULE PO ONE (12:00)
--- NOTE | 2021-12-06 15:22 | NUR ---
SW following. Discussed with RN, pt from home with family, room air, cardiac diet. PT/OT recommending SNF. SW met with pt, pt declining SNF and home health at this time - wants to go home and spend time with her family. Pt understands she can reach out to her PCP if she changes her mind. Pt reported she had tried to get a hospital bed through her PCP and wondered about that - SW recommend she call her PCP to see what the progress is with that. Pt agreed and declined and further SW needs. RN notified. SW will continue to follow.
[2021-12-06] MEDS: ENOXAPARIN 40 MG/0.4 ML SYRINGE. SQ SCH (20:32)
[2021-12-06] MEDS: ATORVASTATIN CALCIUM 40 MG TABLET. PO SCH (20:33)
[2021-12-06] MEDS: PRIMIDONE 50 MG TABLET PO SCH (20:33)
[2021-12-06] MEDS: traZODone 50 MG TABLET. PO SCH (20:33)
[2021-12-06] MEDS: ASPIRIN ENTERIC COATED 81 MG TABLET.DR. PO SCH (20:33)
[2021-12-07 03:00] VITALS: BP 138/65
[2021-12-07 07:00] VITALS: BP 185/74
[2021-12-07] MEDS: INSULIN LISPRO 300 UNITS/3 ML VIAL. SQ SCH ×3 (08:00→17:00)
[2021-12-07] MEDS ORDERED: MAGNESIUM OXIDE 400 MG TABLET PO SCH (09:00)
[2021-12-07] MEDS ORDERED: hydroCHLOROthiazide 12.5 MG CAPSULE PO SCH (09:00)
[2021-12-07] MEDS ORDERED: LISINOPRIL 20 MG TABLET PO SCH (09:00)
[2021-12-07 09:39] LABS: CALCIUM 9.2 mg/dL (8.5-10.1); CREATININE 1.4 mg/dL (0.6-1.0); GFR 36.2; MAGNESIUM 1.8 mg/dL (1.8-2.4); POTASSIUM 3.7 mmol/L (3.5-5.1)
--- NOTE | 2021-12-07 09:41 | PDOC ---
PROGRESS NOTES Date of Service: DATE: 12/07/21 TIME: 09:41 Subjective Subjective No new complaints Objective Objective Vital Signs Date Time Temp Pulse Resp B/P (MAP) Pulse Ox O2 Delivery O2 Flow Rate FiO2 12/07/21 03:00 97.7 67 18 138/65 (89) 95 Room Air 97.7 Intake and Output 12/07/21 07:00 Intake Total 610 ml Balance 610 ml Intake Oral 610 ml # Voids 3 # Bowel Movements 2 Physical Exam Abdomen: Soft, No tenderness, Other (obese) Heart: Regular rate (Sr with intermittent pacing), Normal S1, Normal S2, Other (distant heart sounds) Extremities: No cyanosis, Other (1+ bilateral LE pitting edema) General: No acute distress, Other (Appears comfortable/sleeping) HEENT: Atraumatic, Mucous membr. moist/pink Lungs: Other (basilar crackles) MUSCULOSKELETAL: Osteoarthritic changes both hands Neuro: Normal speech, Sensation intact Psych/Mental Status: Mental status NL, Mood NL Skin: No breakdown, No significant lesion Assessment Assessment 1. Acute on chronic diastolic CHF: compensated 2. CKD3 3. GERD 4. CAD: past stents, clinically stable 5. SSS/PPM in situ: [facility] currently Vpaced with hx of SSS 6. HLP 7. HTN urgency: labile 8. Hypothyroidism: on replacement 9. Nontraumatic mechanical fall: due to left knee weakness 10. Atypical CP: MSK Recommendations 1. Continue with secondary prevention measures 2. Change metoprolol to labetalol for better blood pressure control 3. Work-up for secondary causes as an outpatient Plan Plan of Care Problems Medical Problems: (1) Congestive heart failure Status: Acute (2) Hypertensive emergency Status: Acute Comment Review of Relevant I have reviewed the following items donna (where applicable) has been applied. Labs Laboratory Tests Test 12/06/21 12:24 12/06/21 16:56 12/07/21 07:21 12/07/21 09:10 Glucose (Fingerstick) 122 mg/dL (70-99) 123 mg/dL (70-99) 112 mg/dL (70-99) Sodium Level 143 mmol/L (136-145) Potassium Level 3.7 mmol/L (3.5-5.1) Chloride Level 101 mmol/L (98-107) Carbon Dioxide Level 32 mmol/L (21-32) Anion Gap 10 (6-14) Blood Urea Nitrogen 20 mg/dL (7-20) Creatinine 1.4 mg/dL (0.6-1.0) Estimated GFR (Cockcroft-Gault) 36.2 Glucose Level 131 mg/dL (70-99) Calcium Level 9.2 mg/dL (8.5-10.1) Magnesium Level 1.8 mg/dL (1.8-2.4) Microbiology 12/05/21 Urine Culture - Final, Complete Escherichia Coli Medications Current Medications Hydrochlorothiazide (Microzide) 12.5 mg 1X ONCE PO Last administered on 12/06/21at 13:06; Start 12/06/21 at 12:00; Stop 12/06/21 at 12:01; Status DC Hydrochlorothiazide (Microzide) 12.5 mg DAILY PO ; Start 12/07/21 at 09:00 Lisinopril (Prinivil) 20 mg 1X ONCE PO Last administered on 12/06/21at 13:05; Start 12/06/21 at 12:00; Stop 12/06/21 at 12:01; Status DC Lisinopril (Prinivil) 40 mg DAILY PO ; Start 12/07/21 at 09:00 Magnesium Oxide (Magnesium Oxide) 800 mg DAILY PO ; Start 12/07/21 at 09:00 Vitals/I & O Vital Sign - Last 24 Hours 12/06/21 12/06/21 12/06/21 12/06/21 13:05 13:06 13:30 15:00 Temp 97.9 97.9 Pulse 77 67 Resp 18 18 18 B/P (MAP) 150/65 182/68 (106) Pulse Ox 97 95 98 O2 Delivery Room Air Room Air 12/06/21 12/06/21 12/06/21 12/06/21 17:55 19:00 20:19 23:00 Temp 98.2 98.1 98.1 98.2 98.1 98.1 Pulse 67 71 70 Resp 20 17 18 B/P (MAP) 165/67 (99) 154/56 (88) 145/52 (83) Pulse Ox 96 96 93 O2 Delivery Room Air Room Air Room Air Room Air 12/07/21 03:00 Temp 97.7 97.7 Pulse 67 Resp 18 B/P (MAP) 138/65 (89) Pulse Ox 95 O2 Delivery Room Air Intake and Output 0 12/06/21 12/06/21 12/07/21 15:00 23:00 07:00 Intake Total 210 ml 400 ml Balance 210 ml 400 ml ERON DOMINGUEZ MD Dec 07, 2021 09:41
[2021-12-07 09:44] LABS: BASO % 1 % (0-3); EOS # 0.2 x10^3/uL (0.0-0.7); EOS % 6 % (0-3); HEMATOCRIT 31.8 % (36.0-47.0); HEMOGLOBIN 10.9 g/dL (12.0-15.5); LYMPH % 25 % (24-48); MEAN CORPUSCULAR HEMOGLOBIN 32 pg (25-35); MEAN CORPUSCULAR HGB CONC 34 g/dL (31-37); MEAN CORPUSCULAR VOLUME 93 fL (79-100); MONO # 0.3 x10^3/uL (0.0-1.1); MONO % 7 % (0-9); NEUT # 2.5 x10^3/uL (1.8-7.7); NEUT % 61 % (31-73); PLATELET COUNT 209 x10^3/uL (140-400); RED BLOOD COUNT 3.43 x10^6/uL (3.50-5.40); RED CELL DISTRIBUTION WIDTH 13.4 % (11.5-14.5); WHITE BLOOD COUNT 4.1 x10^3/uL (4.0-11.0)
[2021-12-07] MEDS: GABAPENTIN 300 MG CAPSULE. PO SCH ×2 (09:57→16:02)
[2021-12-07] MEDS: THIAMINE 100 MG TABLET. PO SCH (09:58)
[2021-12-07] MEDS: VERAPAMIL SR 120 MG TABLET.ER. PO SCH (09:58)
[2021-12-07] MEDS: SERTRALINE 50 MG TABLET. PO SCH (09:58)
[2021-12-07] MEDS: METOPROLOL SUCC 24HR ER 100 MG TAB.ER.24H. PO SCH (09:58)
[2021-12-07] MEDS: LEVOTHYROXINE 112 MCG TABLET PO SCH (09:59)
[2021-12-07] MEDS: FOLIC ACID 1 MG TABLET. PO SCH (09:59)
[2021-12-07] MEDS: ACETAMINOPHEN 325 MG TABLET. PO PRN (10:06)
[2021-12-07 11:00] VITALS: BP 179/76
[2021-12-07] MEDS ORDERED: MAGN400T48 PO (12:22)
[2021-12-07] MEDS ORDERED: HYDR12.575 PO (12:22)
--- NOTE | 2021-12-07 12:23 | SNU/HH DC ---
DISCHARGE WITH HOME HEALTH DISCHARGE INFORMATION: Final Diagnosis: Problems Medical Problems: (1) Congestive heart failure Status: Acute (2) Hypertensive emergency Status: Acute Condition on Discharge: Stable CODE STATUS: Code Status: Full HOME HEALTH: Face to Face: I certify this patient is under my care and that I, or a nurse practitioner or physician's expanded duty dental assistant working with me, had a face to face encounter that meets the physician face to face encounter requirements with this patient on []. Medical Complications: CHF Intermediate For: Assess Cardiopulm Status RN For Eval/Treatment: Yes Physical Therapy For: Evalulation/Treatment Occupational Therapy For: Evaluation/Treatment Home Health Aide For: Self-care STUDY ABROAD ADVISOR For: Community Resources Pt Meets Homebound Status: Unsteady balance w/ amb, POST DISCHARGE ORDERS: Activity Instructions for Disc: Activity as tolerated Weight Bearing Status after Di: As tolerated Bathing Instructions: No Tub Bath until see DIET AFTER DISCHARGE: Cardiac Wound/Incision Care: No wound care needed CHECKS AFTER DISCHARGE: Checks after discharge: Check blood press - daily, Check blood sugar, ac/hs, Check your Temp as needed TREATMENT/EQUIPMENT ORDERS: Adaptive Equipment Issued: None CERTIFICATION STATEMENT: Certification Statement: Certification Statement: Based on the above finding, I certify that this patient is confined to the home and needs intermittent fci care, physical therapy and/or speech therapy, or continues to need occupational therapy.~ This patient is under my care, and I have initiated the establishment of the plan of care.~ This patient will be followed by myself or a community physician who will periodically review the plan of care. Home Meds Active Scripts Magnesium Oxide (MAGNESIUM OXIDE) 400 Mg Tablet, 800 MG PO DAILY for . for 30 Days, #60 TAB Prov:CASTLE,NIAL K III DO 12/07/21 Hydrochlorothiazide (HYDROCHLOROTHIAZIDE CAPSULE ) 12.5 Mg Capsule, 12.5 MG PO DAILY for . for 30 Days, #30 CAP Prov:CASTLE,NIAL K III DO 12/07/21 Atorvastatin Calcium (ATORVASTATIN CALCIUM) 40 Mg Tablet, 40 MG PO QHS for cholesterol for 30 Days, #30 TAB 2 Refills Prov:NILO SANDERS MD 10/27/21 Pantoprazole Sodium (PANTOPRAZOLE SODIUM ) 40 Mg Tablet., 40 MG PO BIDAC for reflux disease for 30 Days, #60 TAB.SR 2 Refills Prov:NILO SANDERS MD 10/27/21 Dicyclomine Hcl (DICYCLOMINE HCL) 10 Mg Capsule, 10 MG PO PRN TID PRN for abd pain for 10 Days, #30 CAP Prov:KERRY REEVES MD 05/18/19 Metoprolol Succinate (METOPROLOL SUCCINATE ( XL )) 100 Mg Tab.er.24h, 100 MG PO DAILY, #30 TAB 0 Refills Prov:JOAN HAMMOND MD 08/06/16 Reported Medications Primidone (MYSOLINE) 50 Mg Tablet, 3 TAB PO QHS for TREMORS for 30 Days, #90 TAB 0 Refills 02/13/21 Loperamide HCl (Imodium A-D) 2 Mg Capsule, 2 MG PO TID PRN PRN for DIARRHEA, CAP 02/13/21 [place]-3 Fatty Acids/Fish Oil (FISH OIL 1,000 MG SOFTGEL) 1 Each Capsule, 1000 EACH PO DAILY for SUPPLEMENT, CAP 02/13/21 Folic Acid (FOLIC ACID) 0.4 Mg Tablet, 0.4 MG PO DAILY for SUPPLEMENT, TAB 02/13/21 Tramadol Hcl (TRAMADOL HCL) 50 Mg Tablet, 50 MG PO DAILY PRN for PAIN, TAB 0 Refills 03/28/19 Benzonatate (TESSALON PERLE) 100 Mg Capsule, 1 CAP PO PRN TID PRN for COUGH, #21 CAP 03/28/19 Pioglitazone Hcl (ACTOS) 15 Mg Tablet, 1 TAB PO DAILY for f, #30 TAB 5 Refills 12/01/18 Lisinopril (LISINOPRIL) 20 Mg Tablet, 1 TAB PO DAILY for HTN, #30 TAB 5 Refills 12/01/18 Gabapentin (GABAPENTIN ) 300 Mg Capsule, 300 MG PO TID for NEUROGENIC PAIN, CAP 12/01/18 Verapamil Hcl (VERAPAMIL ER) 240 Mg Cap24h.pel, 240 MG PO DAILY, CAP.SR 07/13/17 Levothyroxine Sodium (LEVOTHYROXINE SODIUM) 112 Mcg Tablet, 112 MCG PO DAILYAC for THYROID SUPPLEMENT, #30 TAB 0 Refills 07/13/17 Albuterol Sulfate (PROAIR HFA INHALER) 8.5 Gm Hfa.aer.ad, 1 PUFF INH PRN Q6HRS PRN for SHORTNESS OF BREATH, INHALER 0 Refills 04/09/15 Trazodone Hcl (TRAZODONE HCL) 50 Mg Tablet, 50 MG PO HS, TAB 04/09/15 Sertraline Hcl (SERTRALINE HCL) 100 Mg Tablet, 100 MG PO DAILY for ANTI- DEPRESSANT, TAB 0 Refills 04/09/15 Ipratropium/Albuterol Sulfate (COMBIVENT RESPIMAT INHAL) 4 Gm Aer.w.adap, 2 INH IH QID, INHALER 04/09/15 Fexofenadine Hcl (ADORE ALLERGY) 60 Mg Tablet, 60 MG PO DAILY, TAB 04/09/15 Nitroglycerin (NITROSTAT) 0.4 Mg Tab.subl, 1 TAB SL UD, #100 TAB 3 Refills 04/09/15 Aspirin (ASPIR 81) 81 Mg Tablet.dr, 1 TAB PO DAILY for heart health, #30 TAB 5 Refills 04/09/15 Multivitamin (MULTI VITAMIN DAILY) 1 Each Tablet, 1 EACH PO 04/09/15 Discontinued Reported Medications Gemfibrozil (LOPID) 600 Mg Tablet, 1 TAB PO BID for high cholestrol , #60 TAB 5 Refills 12/01/18 DARRYL WEEKS III DO Dec 07, 2021 12:23
--- NOTE | 2021-12-07 13:48 | DS ---
DATE OF DISCHARGE: 12/07/2021 ADMITTING DIAGNOSIS: Acute on chronic systolic and diastolic heart failure. DISCHARGE DIAGNOSES: Resolving heart failure, history of coronary artery disease with stents a year ago, hypertension, hyperlipidemia, diabetes, anxiety, transient ischemic attacks, pacemaker. HOSPITAL COURSE: The patient is a pleasant, middle-aged female who presented with acute on chronic systolic and diastolic heart failure. We admitted her, did cardiac enzymes, echocardiogram. We consulted Cardiology. Today, I saw her and examined her. She is doing well and wants to go home. We plan to discharge. DISPOSITION: Home. ACTIVITY: As tolerated. DIET: Cardiac. DISCHARGE MEDICATIONS: Please see the MRAD. Hydrochlorothiazide 12.5 a day, magnesium 800 a day, albuterol, aspirin 81 a day, atorvastatin 40 a day, Tessalon Perles p.r.n., dicyclomine 10 p.r.n., Maryanne-D 60 a day, folic acid 0.4 a day, gabapentin 300 t.i.d., Synthroid 112 a day, lisinopril 20 a day, loperamide, metoprolol 100 a day, vitamins, p.r.n. nitro, Protonix 40 a day, Actos 15 a day, Mysoline 50 mg 3 tabs at bedtime, sertraline 100 a day, Ultram 50 q.6 hours, trazodone 50 at bedtime and verapamil 240 a day. TOTAL TIME: [address]: [email or web address]/kvng TID: [id number]
[2021-12-07 15:00] VITALS: BP 154/79
--- NOTE | 2021-12-07 17:50 | NUR ---
DISCHARGE INSTRUCTIONS GIVEN, QUESTIONS AND CONCERNS ANSWERED, PATIENT AND SON AT THE BEDSIDE VERBALIZED UNDERSTANDING OF DISCHARGE INFORMATION INCLUDING TAKING ALL MEDICATIONS INSTRUCTED AND FOLLOWING UP WITH HER PRIMARY PROVIDER IN 1-2 WEEKS, PATIENT INFORMED THAT [facility] WILL FOLLOW HER CARE AT HOME STARTING THURSDAY.
--- NOTE | 2021-12-07 18:06 | NUR ---
PATIENT LEAVES THE UNIT PER W/C ACCOMPANIED BY THIS [employer]ELOPER AND HER SON, EMOTIONAL SUPPORT GIVEN
[2021-12-07] MEDS ORDERED: LABETALOL HCL 200 MG TABLET PO SCH (21:00)
[2021-12-07] MEDS ORDERED: ENOXAPARIN 40 MG/0.4 ML SYRINGE. SQ SCH (21:00)
== END 2021-12-07 18:06 | disposition home health service (06) | DRG 291 ==
LOC: ER 15:41 → ED HOLD 16:50 → 5 NORTH 18:55
PROVIDERS: ADMIT Internal Medicine; ATTEND Internal Medicine
DX: I13.0 Hypertensive heart and chronic kidney disease with heart failure and stage 1 through stage 4 chronic kidney disease, or unspecified chronic kidney disease (principal); I50.43 Acute on chronic combined systolic (congestive) and diastolic (congestive) heart failure; I16.1 Hypertensive emergency; Z68.42 Body mass index [BMI] 45.0-49.9, adult; E03.9 Hypothyroidism, unspecified; E11.22 Type 2 diabetes mellitus with diabetic chronic kidney disease; E11.40 Type 2 diabetes mellitus with diabetic neuropathy, unspecified; E78.00 Pure hypercholesterolemia, unspecified; E78.5 Hyperlipidemia, unspecified; F41.9 Anxiety disorder, unspecified; I25.10 Atherosclerotic heart disease of native coronary artery without angina pectoris; J44.9 Chronic obstructive pulmonary disease, unspecified; K21.9 Gastro-esophageal reflux disease without esophagitis; N18.30 Chronic kidney disease, stage 3 unspecified; F32.A Depression, unspecified; I49.5 Sick sinus syndrome; M19.90 Unspecified osteoarthritis, unspecified site; R79.89 Other specified abnormal findings of blood chemistry; Z20.822 Contact with and (suspected) exposure to COVID-19; E66.9 Obesity, unspecified; Z77.22 Contact with and (suspected) exposure to environmental tobacco smoke (acute) (chronic); Z82.49 Family history of ischemic heart disease and other diseases of the circulatory system; Z86.73 Personal history of transient ischemic attack (TIA), and cerebral infarction without residual deficits; Z90.710 Acquired absence of both cervix and uterus; Z95.0 Presence of cardiac pacemaker; Z95.5 Presence of coronary angioplasty implant and graft; Z90.49 Acquired absence of other specified parts of digestive tract; I25.2 Old myocardial infarction; Z88.1 Allergy status to other antibiotic agents; Z88.5 Allergy status to narcotic agent; Z88.8 Allergy status to other drugs, medicaments and biological substances
CPT/HCPCS: 36415; 71045; 73590; 80048; 80053; 81001; 82962; 83735; 83880; 84100; 84484; 85025; 87077; 87086; 87186; 87428; 93005; J1650; J1815; J1940; 97116-GP; 97535-GO; 99285-25; G0378